=== PATIENT | female | born 1950 | race Caucasian/White ===

== ENCOUNTER → 2022-06-03 12:45 | Outpatient (CLI) | payer MEDICARE, OTHER, SELFPAY ==
--- NOTE | ~2022-06-03 | US_ITS ---
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 COMPARISON: None FINDINGS/IMPRESSION: 8.9 x 8.0 x 4.5 cm subcutaneous mass at the region of concern which is isoechoic and with similar ech otexture and internal septate architecture as the surrounding subcutaneous fat. Appearance would be m ost consistent with and statistically most likely to represent a lipoma. Noncontrast CT or MRI can be obtained for more definitive determination. Reviewed, dictated and finalized at location B.
== END ==
PROVIDERS: PCP Nurse Practitioner Family; Visit Provider Nurse Practitioner Family
DX: D17.1 Benign lipomatous neoplasm of skin and subcutaneous tissue of trunk (principal)
CPT/HCPCS: 76604

== ENCOUNTER 2022-07-04 13:52 | Outpatient (CLI) | payer MEDICARE, SELFPAY ==
[2022-07-04 15:14] LABS: Influenza A QL RT-PCR Negative (Negative); Influenza B QL RT-PCR Negative (Negative); SARS-CoV-2 RNA PCR Negative
== END 2022-07-04 13:53 | disposition home or self-care (01) ==
PROVIDERS: PCP Nurse Practitioner Family; Visit Provider Nurse Practitioner
DX: R68.89 Other general symptoms and signs (principal); Z20.822 Contact with and (suspected) exposure to COVID-19
CPT/HCPCS: 87502; U0003; U0005

== ENCOUNTER → 2022-07-27 08:37 | Outpatient (CLI) | payer MEDICARE, SELFPAY ==
--- NOTE | ~2022-07-27 | XR_ITS ---
XR shoulder LT min 2V 07/27/2022 08:52 Indication: Left shoulder pain Procedure: 4 views left shoulder Comparison: No prior studies for comparison. Findings: There is severe osteoarthritis of the left glenohumeral joint. No acute fracture or traumat ic malalignment. The acromioclavicular joint is within normal limits. No foreign bodies. Impression: 1: Severe left glenohumeral joint osteoarthritis. Reviewed, dictated and finalized at location A. GER BODY Impression: 1: Severe left glenohumeral joint osteoarthritis.
--- NOTE | ~2022-07-27 | XR_ITS ---
EXAMINATION: XR chest 2V 07/27/2022 08:52 INDICATION: Chest pain PROCEDURE: 2 view chest COMPARISON: Comparison to multiple prior studies sequentially, with oldest reviewed study dated 06/25. FINDINGS: The lungs are clear. The cardiomediastinal silhouette is within normal limits. There are no pleural effusions. There is no pneumothorax suspected. There are degenerative changes of the lef t shoulder and spine. IMPRESSION: 1: NO ACUTE CARDIOPULMONARY DISEASE. Reviewed, dictated and finalized at location A. OTIC ASSISTANT
== END ==
PROVIDERS: PCP Nurse Practitioner Family; Visit Provider Nurse Practitioner Family
DX: M25.512 Pain in left shoulder (principal); M19.012 Primary osteoarthritis, left shoulder; R07.89 Other chest pain
CPT/HCPCS: 71046; 73030

== ENCOUNTER 2022-12-17 10:04 | Outpatient (CLI) | payer MEDICARE, SELFPAY ==
[2022-12-17 20:01] LABS: Alanine Aminotransferase 25 U/L (6-35); Albumin Level 4.2 g/dL (3.5-5.1); Alkaline Phosphatase 96 U/L (38-126); Anion Gap 5 mmol/L (8-16); Aspartate Amino Transferase 45 U/L (14-36); Bilirubin,Total 0.9 mg/dL (0.2-1.3); Blood Urea Nitrogen 30 mg/dL (7-17); Calcium 9.3 mg/dL (8.4-10.2); Carbon Dioxide 33 mmol/L (22-30); Chloride 100 mmol/L (98-107); Cholesterol 176 mg/dL (0-200); Estimated Glomerular Filt Rate 49; Glucose 88 mg/dL (65-110); HDL Direct 31 mg/dL; Potassium 4.3 mmol/L (3.4-5.0); Sodium 138 mmol/L (137-145); Triglycerides 146 mg/dL (<150)
[2022-12-17 20:12] LABS: LDL Cholesterol Direct 111 mg/dL
[2022-12-17 20:34] LABS: Basophils Absolute Auto 0.1 K/mm3 (0.0-0.1); Basophils Percent Auto 0.6 % (0.2-1.2); Eosinophils Absolute Auto 0.2 K/mm3 (0-0.3); Eosinophils Percent Auto 2.5 % (0-4.4); Hematocrit 40.8 % (37.0-47.0); Hemoglobin 13.5 g/dL (12.0-15.0); Immature Granulocyte Absolute 0.02 K/mm3 (0.00-0.031); Immature Granulocyte Percent A 0.2 % (0-0.5); Lymphocytes Absolute Auto 1.68 K/mm3 (0.9-3.2); Lymphocytes Percent Auto 19.4 % (18.3-44.2); Mean Corpuscular HGB Conc 33.1 g/dl (32-36); Mean Corpuscular Hemoglobin 30.1 pg (26-34); Mean Corpuscular Volume 91.1 fl (80-100); Mean Platelet Volume 10.2 fl (7.4-10.4); Monocytes Absolute Auto 0.7 K/mm3 (0.1-0.6); Monocytes Percent Auto 8.5 % (2.6-8.5); Neutrophils Percent Auto 68.8 % (45.5-73.1); Platelet Count Result 228 k/mm3 (150-375); Red Blood Count 4.48 M/mm3 (4.2-5.4); Red Cell Distribution Width 12.8 % (11.5-14.5); White Blood Count 8.7 K/mm3 (4.5-10.0)
[2022-12-17 20:58] LABS: Thyroid Stimulating Hormone Reflex 0.071 uIU/mL (0.465-4.68)
[2022-12-17 21:39] LABS: Hemoglobin A1C 5.7 % (<5.7)
[2022-12-18 06:12] LABS: Total Triiodothyronine (T3) 1.05 NG/ML (0.97-1.69)
== END 2022-12-17 10:05 | disposition home or self-care (01) ==
LOC: ANHGOSHLAB 10:16
PROVIDERS: PCP Nurse Practitioner Family; Visit Provider Nurse Practitioner Family
DX: R73.03 Prediabetes (principal); I10 Essential (primary) hypertension; E78.5 Hyperlipidemia, unspecified; E03.9 Hypothyroidism, unspecified
CPT/HCPCS: 36415; 80053; 80061; 83036; 84439; 84443; 84480; 85025

== ENCOUNTER 2023-06-03 10:51 | Outpatient (CLI) | payer MEDICARE, SELFPAY ==
[2023-06-03 18:44] LABS: Alanine Aminotransferase 26 U/L (6-35); Albumin Level 4.3 g/dL (3.5-5.1); Alkaline Phosphatase 94 U/L (38-126); Anion Gap 3 mmol/L (8-16); Aspartate Amino Transferase 32 U/L (14-36); Bilirubin,Total 0.8 mg/dL (0.2-1.3); Blood Urea Nitrogen 26 mg/dL (7-17); Calcium 9.5 mg/dL (8.4-10.2); Carbon Dioxide 36 mmol/L (22-30); Chloride 100 mmol/L (98-107); Cholesterol 200 mg/dL (0-200); Estimated Glomerular Filt Rate > 60; Glucose 99 mg/dL (65-110); HDL Direct 41 mg/dL; Potassium 4.1 mmol/L (3.4-5.0); Sodium 139 mmol/L (137-145); Triglycerides 125 mg/dL (<150)
[2023-06-03 18:54] LABS: LDL Cholesterol Direct 113 mg/dL
[2023-06-03 19:41] LABS: Basophils Absolute Auto 0.1 K/mm3 (0.0-0.1); Basophils Percent Auto 0.5 % (0.2-1.2); Eosinophils Absolute Auto 0.3 K/mm3 (0-0.3); Eosinophils Percent Auto 3.2 % (0-4.4); Hematocrit 40.7 % (37.0-47.0); Hemoglobin 13.5 g/dL (12.0-15.0); Immature Granulocyte Absolute 0.04 K/mm3 (0.00-0.031); Immature Granulocyte Percent A 0.4 % (0-0.5); Lymphocytes Absolute Auto 2.03 K/mm3 (0.9-3.2); Mean Corpuscular HGB Conc 33.2 g/dl (32-36); Mean Corpuscular Hemoglobin 30.5 pg (26-34); Mean Corpuscular Volume 91.9 fl (80-100); Mean Platelet Volume 10.3 fl (7.4-10.4); Monocytes Absolute Auto 0.8 K/mm3 (0.1-0.6); Monocytes Percent Auto 7.5 % (2.6-8.5); Neutrophils Percent Auto 68.4 % (45.5-73.1); Platelet Count Result 238 k/mm3 (150-375); Red Blood Count 4.43 M/mm3 (4.2-5.4); Red Cell Distribution Width 12.2 % (11.5-14.5); White Blood Count 10.2 K/mm3 (4.5-10.0)
[2023-06-03 19:50] LABS: Hemoglobin A1C 5.7 % (<5.7)
[2023-06-06 11:01] LABS: Vitamin D 1,25 (OH)2 Total 24 pg/mL (18-72); Vitamin D2 1,25 (OH)2 <8 pg/mL; Vitamin D3 1,25 (OH)2 24 pg/mL
== END 2023-06-03 10:52 | disposition home or self-care (01) ==
PROVIDERS: PCP Family Medicine; Visit Provider Nurse Practitioner Family
DX: R73.03 Prediabetes (principal); I10 Essential (primary) hypertension; E55.9 Vitamin D deficiency, unspecified
CPT/HCPCS: 36415; 80053; 80061; 82652; 83036; 84443; 85025

== ENCOUNTER 2023-09-05 08:53 | Outpatient (CLI) | payer MEDICARE, SELFPAY ==
[2023-09-05 19:40] LABS: Basophils Absolute Auto 0.1 K/mm3 (0.0-0.1); Basophils Percent Auto 0.7 % (0.2-1.2); Eosinophils Absolute Auto 0.3 K/mm3 (0-0.3); Eosinophils Percent Auto 3.7 % (0-4.4); Hematocrit 41.8 % (37.0-47.0); Hemoglobin 13.7 g/dL (12.0-15.0); Immature Granulocyte Absolute 0.02 K/mm3 (0.00-0.031); Immature Granulocyte Percent A 0.2 % (0-0.5); Lymphocytes Percent Auto 20.9 % (18.3-44.2); Mean Corpuscular HGB Conc 32.8 g/dl (32-36); Mean Corpuscular Hemoglobin 30.2 pg (26-34); Mean Corpuscular Volume 92.1 fl (80-100); Mean Platelet Volume 10.5 fl (7.4-10.4); Monocytes Absolute Auto 0.7 K/mm3 (0.1-0.6); Monocytes Percent Auto 8.2 % (2.6-8.5); Neutrophils Absolute Auto 5.7 K/mm3 (1.3-6.7); Neutrophils Percent Auto 66.3 % (45.5-73.1); Platelet Count Result 249 k/mm3 (150-375); Red Blood Count 4.54 M/mm3 (4.2-5.4); Red Cell Distribution Width 11.9 % (11.5-14.5); White Blood Count 8.6 K/mm3 (4.5-10.0)
[2023-09-05 19:48] LABS: Alanine Aminotransferase 22 U/L (6-35); Albumin Level 3.9 g/dL (3.5-5.1); Alkaline Phosphatase 92 U/L (38-126); Anion Gap 9 mmol/L (8-16); Aspartate Amino Transferase 37 U/L (14-36); Bilirubin,Total 0.4 mg/dL (0.2-1.3); Blood Urea Nitrogen 40 mg/dL (7-17); Calcium 9.1 mg/dL (8.4-10.2); Carbon Dioxide 30 mmol/L (22-30); Chloride 102 mmol/L (98-107); Estimated Glomerular Filt Rate 49; Glucose 85 mg/dL (65-110); Potassium 3.9 mmol/L (3.4-5.0); Sodium 141 mmol/L (137-145)
[2023-09-05 20:09] LABS: Creatinine Urine 135.5 mg/dL
[2023-09-05 20:13] LABS: MALB Creatinine Ratio 17.5 mg/g (0-30); Microalbumin Urine Random 23.7 mg/L (0-16.7)
== END 2023-09-05 08:54 | disposition home or self-care (01) ==
PROVIDERS: PCP Family Medicine; Visit Provider Nurse Practitioner Family
DX: E11.9 Type 2 diabetes mellitus without complications (principal); I10 Essential (primary) hypertension
CPT/HCPCS: 36415; 80053; 82043; 85025

== ENCOUNTER 2024-01-15 10:38 | Outpatient (CLI) | payer MEDICARE, SELFPAY ==
[2024-01-15 16:35] LABS: Anion Gap 8 mmol/L (4-12); Blood Urea Nitrogen 22 mg/dL (7-17); Calcium 9.1 mg/dL (8.4-10.2); Carbon Dioxide 29 mmol/L (22-30); Chloride 105 mmol/L (98-107); Estimated Glomerular Filt Rate > 60; Glucose 91 mg/dL (65-110); Sodium 142 mmol/L (137-145)
== END 2024-01-15 10:39 | disposition home or self-care (01) ==
LOC: ANHGOSHLAB 10:41
PROVIDERS: PCP Family Medicine; Visit Provider Internal Medicine Cardiovascular Disease
DX: I10 Essential (primary) hypertension (principal)
CPT/HCPCS: 36415; 80048

== ENCOUNTER 2024-03-03 08:32 | Outpatient (CLI) | payer MEDICARE, SELFPAY ==
--- NOTE | ~2024-03-03 | US_ITS ---
BILATERAL LOWER EXTREMITY VENOUS ULTRASOUND Ordering provider: Laura Romo APRN History: . R60.9 - Edema, unspecified . Comparison: None. FINDINGS: RIGHT LOWER EXTREMITY VEINS: --COMMON FEMORAL: Patent and free of thrombus. Normal compressibility, phasic flow and augmentation. --PROXIMAL SUPERFICIAL FEMORAL: Patent and free of thrombus. Normal compressibility, phasic flow and augmentation. --DISTAL SUPERFICIAL FEMORAL: Patent and free of thrombus. Normal compressibility, phasic flow and au gmentation. --POPLITEAL: Patent and free of thrombus. Normal compressibility, phasic flow and augmentation. --POSTERIOR TIBIAL: Patent and free of thrombus. Normal compressibility, phasic flow and augmentation . LEFT LOWER EXTREMITY VEINS: --COMMON FEMORAL: Patent and free of thrombus. Normal compressibility, phasic flow and augmentation. --PROXIMAL SUPERFICIAL FEMORAL: Patent and free of thrombus. Normal compressibility, phasic flow and augmentation. --DISTAL SUPERFICIAL FEMORAL: Patent and free of thrombus. Normal compressibility, phasic flow and au gmentation. --POPLITEAL: Patent and free of thrombus. Normal compressibility, phasic flow and augmentation. --POSTERIOR TIBIAL: Patent and free of thrombus. Normal compressibility, phasic flow and augmentation . IMPRESSION: Negative bilateral lower extremity venous US. No deep vein thrombosis. Reviewed, dictated and finalized at location A.
== END 2024-03-03 08:33 | disposition home or self-care (01) ==
PROVIDERS: PCP Nurse Practitioner Family; Visit Provider Nurse Practitioner Family
DX: I73.9 Peripheral vascular disease, unspecified (principal); R60.9 Edema, unspecified
CPT/HCPCS: 93970

== ENCOUNTER 2024-03-10 08:03 | Outpatient (CLI) | payer MEDICARE, SELFPAY ==
[2024-03-10 13:06] LABS: Basophils Percent Auto 0.4 % (0.2-1.2); Eosinophils Absolute Auto 0.3 K/mm3 (0-0.3); Eosinophils Percent Auto 2.5 % (0-4.4); Hematocrit 39.6 % (37.0-47.0); Hemoglobin 12.8 g/dL (12.0-15.0); Immature Granulocyte Absolute 0.05 K/mm3 (0.00-0.031); Immature Granulocyte Percent A 0.5 % (0-0.5); Lymphocytes Absolute Auto 1.51 K/mm3 (0.9-3.2); Mean Corpuscular HGB Conc 32.3 g/dl (32-36); Mean Corpuscular Volume 92.7 fl (80-100); Mean Platelet Volume 10.4 fl (7.4-10.4); Monocytes Absolute Auto 0.9 K/mm3 (0.1-0.6); Monocytes Percent Auto 8.6 % (2.6-8.5); Platelet Count Result 236 k/mm3 (150-375); Red Blood Count 4.27 M/mm3 (4.2-5.4); Red Cell Distribution Width 12.4 % (11.5-14.5); White Blood Count 10.8 K/mm3 (4.5-10.0)
[2024-03-10 13:42] LABS: Uric Acid 6.4 mg/dL (2.5-7.5)
[2024-03-10 13:43] LABS: NT Pro B Type Natriuretic Pept 245 pg/mL (19.9-100)
== END 2024-03-10 08:04 | disposition home or self-care (01) ==
PROVIDERS: PCP Nurse Practitioner Family; Visit Provider Nurse Practitioner Family
DX: M10.9 Gout, unspecified (principal); R60.9 Edema, unspecified; I11.0 Hypertensive heart disease with heart failure; I50.9 Heart failure, unspecified; R06.00 Dyspnea, unspecified; R73.03 Prediabetes; I73.9 Peripheral vascular disease, unspecified
CPT/HCPCS: 36415; 83880; 84550; 85025

== ENCOUNTER 2024-06-16 10:04 | Outpatient (CLI) | payer MEDICARE, SELFPAY ==
[2024-06-16 13:06] LABS: Basophils Percent Auto 0.4 % (0.2-1.2); Eosinophils Absolute Auto 0.3 K/mm3 (0-0.3); Eosinophils Percent Auto 3.5 % (0-4.4); Hematocrit 42.5 % (37.0-47.0); Hemoglobin 13.6 g/dL (12.0-15.0); Immature Granulocyte Absolute 0.05 K/mm3 (0.00-0.031); Immature Granulocyte Percent A 0.5 % (0-0.5); Lymphocytes Absolute Auto 1.62 K/mm3 (0.9-3.2); Lymphocytes Percent Auto 17.8 % (18.3-44.2); Mean Corpuscular Hemoglobin 30.3 pg (26-34); Mean Corpuscular Volume 94.7 fl (80-100); Mean Platelet Volume 10.4 fl (7.4-10.4); Monocytes Absolute Auto 0.7 K/mm3 (0.1-0.6); Monocytes Percent Auto 7.5 % (2.6-8.5); Neutrophils Absolute Auto 6.4 K/mm3 (1.3-6.7); Neutrophils Percent Auto 70.3 % (45.5-73.1); Platelet Count Result 253 k/mm3 (150-375); Red Blood Count 4.49 M/mm3 (4.2-5.4); Red Cell Distribution Width 13.2 % (11.5-14.5); White Blood Count 9.1 K/mm3 (4.5-10.0)
[2024-06-16 13:22] LABS: Alanine Aminotransferase 20 U/L (6-35); Albumin Level 4.3 g/dL (3.5-5.1); Alkaline Phosphatase 88 U/L (38-126); Anion Gap 8 mmol/L (4-12); Aspartate Amino Transferase 36 U/L (14-36); Bilirubin,Total 0.6 mg/dL (0.2-1.3); Blood Urea Nitrogen 21 mg/dL (7-17); Calcium 9.1 mg/dL (8.4-10.2); Carbon Dioxide 30 mmol/L (22-30); Chloride 103 mmol/L (98-107); Cholesterol 223 mg/dL (0-200); Estimated Glomerular Filt Rate > 60; Glucose 96 mg/dL (65-110); HDL Direct 46 mg/dL; Sodium 141 mmol/L (137-145); Triglycerides 135 mg/dL (<150)
[2024-06-16 13:32] LABS: LDL Cholesterol Direct 130 mg/dL
[2024-06-16 13:50] LABS: Free T4 Free Thyroxine 1.53 ng/mL (0.78-2.19); Vitamin D 25 Hydroxy 28.4 ng/mL
[2024-06-16 14:30] LABS: Hemoglobin A1C 5.6 % (<5.7)
[2024-06-16 15:53] LABS: Potassium 4.2 mmol/L (3.4-5.0)
== END 2024-06-16 10:05 | disposition home or self-care (01) ==
LOC: ANHGOSHLAB 10:06
PROVIDERS: PCP Nurse Practitioner Family; Visit Provider Nurse Practitioner Family
DX: E03.9 Hypothyroidism, unspecified (principal); I10 Essential (primary) hypertension; E78.5 Hyperlipidemia, unspecified; R73.03 Prediabetes; E55.9 Vitamin D deficiency, unspecified
CPT/HCPCS: 36415; 80053; 80061; 82306; 83036; 84439; 84443; 85025

== ENCOUNTER 2025-02-23 13:46 | Outpatient (CLI) | payer MEDICARE, SELFPAY ==
--- OUTSIDE RECORDS SUMMARY | 2025-02-23 13:49 | XMS_ITS | Clinical Summary ---
Author Organization [facility] Address [address] [place] [address] Care Team Providers Care Laborer Plumbing Name Role Phone Unavailable Primary Care Provider Unavailabl e Social History Tobacco Use Types Packs/Day Years Used Date Smoking Tobacco: Never Assessed Comments Unknown Sex and Gender Information Value Date Recorded Sex Assigned at Not on file Legal Sex Female 5:44 PM CDT Gender Identity Not on file Sexual Orientation Not on file Last Filed Vital Signs Vital Sign Reading Time Taken Comments Blood Pressure 159/84 09/12/2008 8:35 AM BLUNGER Pulse 96 09/12/2008 8:35 AM BLUNGER Temperature - - Respiratory Rate - - Oxygen Saturation - - Inhaled Oxygen Concentration - - Weight 118.4 kg (261 lb) 09/12/2008 8:35 AM BLUNGER Height 165.1 cm (5' 5) 09/12/2008 8:35 AM BLUNGER Body Mass Index 43.43 09/12/2008 8:35 AM BLUNGER Plan of Treatment Health Maintenance Due Date Last Done Comments Colorectal Cancer Screening Colonoscopy (10 Years) 1949 Hepatitis C 1967 DTaP, Tdap and Td Vaccines ( 1 - Tdap) 1968 Pneumococcal Vaccine: 50+ Ye ars (1 of 1 - PCV) 1999 Zoster Vaccines (1 of 2) 1999 Dexa Scan (General) 2014 COVID-19 Vaccine ( - 2023-2 5 season) 2024 RSV Immunization or 60+ Years (1 - 1-dose 75+ series) 2024 Meningococcal B Vaccine Aged Out No l onger eligible based on patient's age to complete this topic Meningococcal Vaccine Aged Out No tomas kena eligible based on patient's age to complete this topic RSV Immunizations Under 20 Months Aged Out No longer eligible based on patient's age to complete this topic
--- OUTSIDE RECORDS SUMMARY | 2025-02-23 13:49 | XMS_ITS | Referral Summary ---
Author Organization [facility] [place] [address] Address [address] [place] [address] Care Team Providers Care Insight Director Name Role Phone Deyanira Olivarez MD Unavailable [phone] Jaida Perdomo NP Primary Care Provider [phone] Encounters Date Type Department Care Team Description 01/04/2025 10:15 AM CDT Office Visit [facility] Orthopedic and Sports Medicine [address] [place] [id number] Ana Mcmanus PA Other specified aftercare following surgery (Primary Dx); S/P reverse total shoulder arthroplasty, left from Last 3 Months Allergies Active Allergy Reactions Criticality Noted Date Comments Sulfa Hives Medium 08/12/2023 Medications metoprolol (LOPRESSOR) 25 mg tablet Take 1 tablet (25 mg total) by mouth 2 (two) times a day 09/13/2018 Active cetirizine (ZyrTEC) 10 mg tablet Take 1 tablet (10 mg total) by mouth daily Active doxepin (SINEquan) 25 mg capsule TAKE 1 CAPSULE BY MOUTH ONCE DAILY NEEDED FOR SLEEP 30 MINUTES PRIOR TO BEDTIME. 05/29/2024 Active citalopram (CeleXA) 20 mg tablet Take 1 tablet (20 mg total) by mouth nightly Active meloxicam (MOBIC) 7.5 mg tablet Take 1 tablet (7.5 mg total) by mouth every morning Active levothyroxine (SYNTHROID) 150 mcg tablet Take 1 tablet (150 mcg total) by mouth nightly Active pravastatin (PRAVACHOL) 40 mg tablet Take 1 tablet (40 mg total) by mouth nightly Active ergocalciferol (VITAMIN D) 50,000 unit capsule Take 1 capsule (50,000 Units total) by mouth once a week Takes on Friday Active Active Problems Problem Noted Date Diagnosed Date S/P reverse total shoulder arthroplasty, left Rotator cuff arthropathy, left 09/09/2024 Bilateral lower extremity edema 12/30/2023 Hypothyroidism 12/30/2023 Hypersomnolence 12/30/2023 JIM (dyspnea on exertion) 12/30/2023 Chronic left shoulder pain 08/12/2023 Localized primary osteoarthritis of left shoulde r region 08/12/2023 Abnormal EKG 09/29/2018 RBBB 09/29/2018 Precordial pain 09/29/2018 Essential hypertension 09/29/2018 Mixed hyperlipidemia 09/29/2018 Elevated hemoglobin A1c 09/29/2018 Morbid obesity with BMI of 50.0-59.9, adult 12/2018 Preoperative cardiovascular examination 09/29/19 Social History Tobacco Use Types Packs/Day Years Used Date Smoking Tobacco: Former Smokeless Tobacco: Never Tobacco Cessation:Counseling Given: Not Answered Comments:1992 Alcohol Use Standard Drinks/Week Comments No 0 (1 standard drink = 0.6 oz pur e alcohol) social drinker AUDIT-C Answer Date Recorded Q1: How often do you have a drink containing alc ohol? Monthly or less 09/28/2024 Q2: How many drinks containi ng alcohol do you have on a typical day when you are drinking? 1 or 2 09/28/2024 Q3: How often do you have si x or more drinks on one occasion? Never 09/28/2024 Personal Safety Answer Date Recorded Have you ever been in or are you currently in a harmful physical or emotional relationship or is someone making you feel afraid or unsafe? 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 Gender Identity Not on file Sexual Orientation Not on file Last Filed Vital Signs Vital Sign Reading Time Taken Comments Blood Pressure 167/80 01/04/2025 10:20 AM CDT Pulse 77 01/04/2025 10:20 AM CDT Temperature 36.6 C (97.8 F) 09/29/2024 8:35 AM WARES SORTER Respiratory Rate 16 11/23/2024 9:58 AM CDT Oxygen Saturation 90% 09/29/2024 8:35 AM WARES SORTER Inhaled Oxygen Concentration - - Weight 132.9 kg (293 lb) 01/04/2025 10:20 AM CDT Height 157.5 cm (5' 2) 01/04/2025 10:20 AM CDT Body Mass Index 53.59 01/04/2025 10:20 AM CDT Plan of Treatment Not on file Medical Devices Implanted Type Area Ornamental Metal Erector Apprentice Device Identifier Shelf Expiration Date Model / Serial / Lot Exactech Reverse Torque Define Shoulder Kit Screw 320-20-00 - [id number] - [id number] Implanted:Qty: 1 on 09/28/2024 by Emir Sebastian MD at [facility] Left: Shoulder Exactech [id number] 07/28/2029 320-20-00 / [id number] / Exactech Equinoxe Lock Reverse Shoulder Glenosphere Screw Bone 320-15-05 - [id number] - [id number] Implanted:Qty: 1 on 09/28/2024 by Emir Sebastian MD at [facility] Left: Shoulder Exactech [id number] 06/22/2029 320-15-05 / [id number] / Exactech Equinoxe Small Reverse Superior Posterior Augment Shoulder Left 320-35-07 - [id number] - [id number] Implanted:Qty: 1 on 09/28/2024 by Emir Sebastian MD at [facility] Left: Shoulder Exactech [id number] 12/21/2033 320-35-07 / [id number] / Exactech Component 36mm Glenoid Glenosphere Reverse Shoulder 320-31-36 - [id number] - [id number] Implanted:Qty: 1 on 09/28/2024 by Emir Sebastian MD at [facility] Left: Shoulder Exactech [id number] 07/29/2034 320-31-36 / [id number] / Exactech Equinoxe 4.5mm 30mm Kit Compression Lock Cap Reverse Shoulder 320-20-30 - [id number] - [id number] Implanted:Qty: 1 on 09/28/2024 by Emir Sebastian MD at [facility] Left: Shoulder Exactech [id number] 06/09/2029 320-20-30 / [id number] / Exactech Equinoxe 4.5mm 30mm Kit Compression Lock Cap Reverse Shoulder 320-20-30 - [id number] - [id number] Implanted:Qty: 1 on 09/28/2024 by Emir Sebastian MD at [facility] Left: Shoulder Exactech [id number] 01/22/2027 320-20-30 / [id number] / Exactech Equinoxe Od10 Mm L70 Mm Preserve Short Stem Humeral Sterile 300-30-10 - [id number] - [id number] Implanted:Qty: 1 on 09/28/2024 by Emir Sebastian MD at [facility] Left: Shoulder Exactech [id number] 03/18/2034 300-30-10 / [id number] / Exactech Tray Humeral Adapter 0 322-10-00 - [id number] - [id number] Implanted:Qty: 1 on 09/28/2024 by Emir Sebastian MD at [facility] Left: Shoulder Exactech 08/03/2034 322-10-00 / [id number] / Exactech Liner Humeral 36mm Equinoxe Reverse Shoulder Poly 322-36-00 - [id number] - [id number] Implanted:Qty: 1 on 09/28/2024 by Emir Sebastian MD at [facility] Left: Shoulder Exactech 06/23/2029 322-36-00 / [id number] / Insurance MEDICARE A[employer] SENIOR SUPPLEMENT MEDICARE AET[employer] SENIOR SUPPLEMENT Advance Directives For more information, please contact: [phone] * Full Code (Latest Code Status on File) Date Activated Date Inactivated Comments 09/28/2024 2:29 PM 09/29/2024 8:55 PM Care Teams Insight Director Relationship Specialty Start Date End Date Jaida Perdomo NP [address] [place] [address] PCP - General Family Medicine 07/21/24 JaydaDeyanira gomez MD Consulting Physician Cardiology 07/24/23
--- OUTSIDE RECORDS SUMMARY | 2025-02-23 13:49 | XMS_ITS | Encounter Summary ---
Author Organization [facility] Address [address] [place] [address] Care Team Providers Care Network Administrator Name Role Phone Unavailable Primary Care Provider Unavailabl e Encounter Details Date Type Department Care Team (Late st Contact Info) Description 05/04/2003 Abstract [facility] Conversion Md, Generic Conversion, Social History Tobacco Use Types Packs/Day Years Used Date Smoking Tobacco: Never Assessed Comments Unknown Sex and Gender Information Value Date Recorded Sex Assigned at Not on file Legal Sex Female 5:44 PM CDT Gender Identity Not on file Sexual Orientation Not on file documented as of this encounter Plan of Treatment Not on file documented as of this encounter Visit Diagnoses Not on filedocumented in this encounter
--- OUTSIDE RECORDS SUMMARY | 2025-02-23 13:49 | XMS_ITS | Clinical Summary ---
Author Organization [facility] [address] Address [address] [place] [address] Care Team Providers Care Community Development Planner Name Role Phone Deyanira Olivarez MD Unavailable [phone] Jaida Perdomo NP Primary Care Provider [phone] Allergies Active Allergy Reactions Criticality Noted Date [...] 50.0-59.9, adult 12/2018 Preoperative cardiovascular examination 09/29/19 Encounters Date Type Department Care Team Description 01/04/2025 10:15 AM CDT Office Visit [facility] Orthopedic and Sports Medicine [address] [place] [phone] Ana Mcmanus PA Other specified aftercare following surgery (Primary Dx); S/P reverse total shoulder arthroplasty, left from Last 3 Months Surgical History Surgery Date Site/Laterality Comments DILATION AND CURETTAGE OF UTERUS Medical History Medical History Date Comments Anxiety Postmenopausal bleeding Hypertension HLD (hyperlipidemia) Obesity Thyroid disease JIM (dyspnea on exertion) Family History Medical History Relation Name Comments Kidney disease Brother 1 Heart attack Brother 2 Cerebral aneurysm Father Heart failure Mother PAD, status post amputation Mother Coronary artery disease Sister Coronary stents Sister Relation Name Status Comments Brother 1 (Age 55) Kidney dis ease Brother 2 (Age 45) PR/sudden cardiac Father (Age 5 0) Mother Sister Social History Tobacco Use Types Packs/Day Years Used Date Smoking Tobacco: Former Smokeless Tobacco: Never Tobacco Cessation:Counseling Given: Not Answered Comments:1991 Alcohol Use Standard Drinks/Week Comments No 0 [...] on file Legal Sex Female 1:52 PM 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 Gender Identity Not on file Sexual Orientation Not on file Obstetrics History Last Filed Vital Signs Vital Sign Reading Time Taken Comments Blood Pressure 167/80 01/04/2025 10:20 AM CDT Pulse 77 01/04/2025 10:20 AM CDT Temperature 36.6 C (97.8 F) 09/29/2024 8:35 AM 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 Respiratory Rate 16 11/23/2024 9:58 AM CDT Oxygen Saturation 90% 09/29/2024 8:35 AM 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 Inhaled Oxygen Concentration - - Weight 132.9 kg (293 lb) 01/04/2025 10:20 AM CDT Height 157.5 cm (5' 2) 01/04/2025 10:20 AM CDT Body Mass Index 53.59 01/04/2025 10:20 AM CDT Plan of Treatment Health Maintenance Due Date Last Done Comments Colon Cancer Screening-Colonoscopy 1949 Depression Screening 1950 Hepatitis C Screening 1950 Osteoporosis Screening-Bone Density Scan 1949 DTaP/Tdap/Td Vaccine (1 - Tdap) 1960 Hepatitis B Screening 1967 Zoster Vaccine (1 of 2) 1999 Well Visit 65+ 2014 Pneumococcal vaccine 65+ (2 of 2 - PCV) 06/07/2020 06/07/2019 Covid-19 Vaccine (4 - 2023-2 5 season) 2024 09/24/2021, 03/23/2021, 02/23/2021 Influenza Vaccine (#1) 2025 , 06/14/2021, 06/19/2020, Additional history exists Fall Risk Assessment 09/29/2025 09/29/2024 Breast Cancer Screening-Mammogram Discontinued 07/05/2016, 06/28/2016, 02/03/2015 Medical Devices Implanted Type Area Production Broacher Device Identifier Shelf Expiration Date Model / Serial / Lot Exactech Reverse Torque Define Shoulder Kit Screw 320-20- - [id number] - [id number] Implanted:Qty: 1 on 09/28/2024 by Emir Sebastian MD at [facility] Left: Shoulder Exactech [id number] 07/28/2029 320-20-00 / [id number] / Exactech Equinoxe Lock Reverse Shoulder Glenosphere Screw Bone 320-15 - [id number] - [id number] Implanted:Qty: 1 on 09/28/2024 by Emir Sebastian MD at [facility] Left: Shoulder Exactech [id number] 06/22/2029 320-15- / [id number] / Exactech Equinoxe Small Reverse Superior Posterior Augment Shoulder Left 320-35-07 - [id number] - [id number] Implanted:Qty: 1 on 09/28/2024 by Emir Sebastian MD at [facility] Left: Shoulder Exactech [id number] 12/21/2033 320-35-07 / [id number] / Exactech Component 36mm Glenoid Glenosphere Reverse Shoulder 320-31-36 - [id number] - [id number] Implanted:Qty: 1 on 09/28/2024 by Emir Sebastian MD at [facility] Left: Shoulder Exactech [id number] 07/29/2034 320-31-36 / [id number] / Exactech Equinoxe 4.5mm 30mm Kit Compression Lock Cap Reverse Shoulder 320-20-30 - [id number] - [id number] Implanted:Qty: 1 on 09/28/2024 by Emir Sebastian MD at [facility] Left: Shoulder Exactech [id number] 06/09/2029 320-20-30 / [id number] / Exactech Equinoxe 4.5mm 30mm Kit Compression Lock Cap Reverse Shoulder 320-20-30 - [id number] - [id number] Implanted:Qty: 1 on 09/28/2024 by Emir Sebastian MD at [facility] Left: Shoulder Exactech [id number] 01/22/2027 320-20-30 / [id number] / Exactech Equinoxe Od10 Mm L70 Mm Preserve Short Stem Humeral Sterile 300-30- - [id number] - [id number] Implanted:Qty: 1 on 09/28/2024 by Emir Sebastian MD at [facility] Left: Shoulder Exactech [id number] 03/18/2034 300-3010 / [id number] / Exactech Tray Humeral Adapter 0 322 - [id number] - [id number] Implanted:Qty: 1 on 09/28/2024 by Emir Sebastian MD at [facility] Left: Shoulder Exactech 08/03/2034 [address] / [id number] / Exactech Liner Humeral 36mm Equinoxe Reverse Shoulder Poly 36 - [id number] - [id number] Implanted:Qty: 1 on 09/28/2024 by Emir Sebastian MD at [facility] Left: Shoulder Exactech 06/23/2029 322-36-00 / [id number] / Insurance MEDICARE AET SENIOR SUPPLEMENT MEDICARE AETNA SENIOR SUPPLEMENT Advance Directives For more information, please contact: [phone] * Full Code (Latest Code Status on File) Date Activated Date Inactivated Comments 09/28/2024 2:29 PM 09/29/2024 8:55 PM Care Teams Community Development Planner Relationship Specialty Start Date End Date Jaida Perdomo NP [address] [place] [address] PCP - General Family Medicine 07/21/24 Deyanira Olivarez MD Consulting Physician Cardiology 07/24/23
--- OUTSIDE RECORDS SUMMARY | 2025-02-23 13:49 | XMS_ITS | Encounter Summary ---
Author Organization [facility] Address [address] [place] [address] Care Team Providers Care Utility Sales Representative Name Role Phone Unavailable Primary Care Provider Unavailabl e Encounter Details Date Type Department Care Team (Late st Contact Info) Description 08/27/2005 Abstract [facility] Conversion Md, Generic Conversion, Social [...]
[2025-02-23 18:46] LABS: Hematocrit 43.4 % (37.0-47.0); Hemoglobin 14.0 g/dL (12.0-15.0); Immature Granulocyte Percent A 0.4 % (0-0.5); Lymphocytes Absolute Auto 2.25 K/mm3 (0.9-3.2); Mean Corpuscular HGB Conc 32.3 g/dl (32-36); Mean Corpuscular Hemoglobin 29.3 pg (26-34); Mean Corpuscular Volume 90.8 fl (80-100); Nucleated Red Blood Cells Absolute Auto 0.000 K/mm3 (0.0-0.012); Nucleated Red Blood Cells Perc 0.0 % (0.0-0.2); Platelet Count Result 218 k/mm3 (150-375); Red Blood Count 4.78 M/mm3 (4.2-5.4); White Blood Count 10.0 K/mm3 (4.5-10.0)
[2025-02-23 18:59] LABS: Hemoglobin A1C. 5.9 % (<5.7)
[2025-02-23 19:00] LABS: Alanine Aminotransferase 24 U/L (6-35); Albumin Level 4.4 g/dL (3.5-5.1); Alkaline Phosphatase 92 U/L (38-126); Anion Gap 9 mmol/L (4-12); Aspartate Amino Transferase 46 U/L (14-36); Bilirubin,Total 0.4 mg/dL (0.2-1.3); Blood Urea Nitrogen 26 mg/dL (7-17); Calcium 9.6 mg/dL (8.4-10.2); Carbon Dioxide 31 mmol/L (22-30); Chloride 101 mmol/L (98-107); Cholesterol 198 mg/dL (0-200); Estimated Glomerular Filt Rate 53; Glucose 89 mg/dL (65-110); HDL Direct 38 mg/dL; Potassium 4.4 mmol/L (3.4-5.0); Sodium 141 mmol/L (137-145); Total Protein 7.8 g/dL (6.3-8.2); Triglycerides 172 mg/dL (<150)
[2025-02-24 08:54] LABS: Thyroid Stimulating Hormone Reflex 4.790 uIU/mL (0.465-4.68)
[2025-02-24 09:24] LABS: Free T4 Free Thyroxine Reflex 1.40 ng/dL (0.78-2.19)
[2025-02-24 10:05] LABS: Total Triiodothyronine (T3) 0.87 NG/ML (0.82-1.58)
== END 2025-02-23 13:47 | disposition home or self-care (01) ==
LOC: ANHGOSHLAB 13:46
PROVIDERS: PCP Nurse Practitioner Family; Visit Provider Nurse Practitioner Family
DX: E55.9 Vitamin D deficiency, unspecified (principal); E78.5 Hyperlipidemia, unspecified; R73.03 Prediabetes; I10 Essential (primary) hypertension; E03.9 Hypothyroidism, unspecified
CPT/HCPCS: 36415; 80053; 80061; 82306; 83036; 84439; 84443; 84480; 85025

== ENCOUNTER 2025-03-15 09:23 | Outpatient (CLI) | payer MEDICARE, SELFPAY ==
--- NOTE | ~2025-03-15 | DEXA_ITS ---
Bone Density Report Name: CHERIE LAW Age: 74 Sex: Female Ethnicity: White Date of : 1950 Indication: postmenopausal; screening for osteoporosis; parental hip fracture; Referring Provider: NEDA CASAS Study: Bone densitometry was performed. Exam Date: March 15, 2025 Accession number: [id number] Bone Density: Region BMD T-score Z-score Classification AP Spine(L1-L4) 1.434 3.5 6.0 Normal Femoral Neck (Left) 0.656 -1.7 0.4 Osteopenia Total Hip (Left) 0.912 -0.2 1.6 Normal Femoral Neck (Right) 0.691 -1.4 0.7 Osteopenia Total Hip (Right) 0.953 0.1 1.9 Normal Total Hip Mean 0.933 -0.1 1.8 Normal World Health Organization criteria for BMD impression classify patients as: Normal (T-score at or above -1.0), Osteopenia (T-score between -1.0 and -2.5), or Osteoporosis (T-score at or below -2.5). 10-year Fracture Risk(1): Major Osteoporotic Fracture 17% Hip Fracture 8.4% Reported Risk Factors: [place] (), Neck BMD=0.656, BMI=50.4, parental fracture Input outside FRAX(R) limits. Adjusted to:Lxsixb=393 kg (1) FRAX(R) Version 3.08. Fracture probability calculated for an untreated patient. Fracture probability may be lower if the patient has received treatment. Previous Exams: -- Region Exam Age BMD T-score BMD Change BMD Change Date g/cm2 vs Baseline vs Previous -- AP Spine (L1-L4) 03/15/2025 74 1.434 3.5 11.2%# 11.2%# 06/28/2016 66 1.289 2.2 Total Hip(Left) 03/15/2025 74 0.912 -0.2 -10.3%# -10.3%# 06/28/2016 66 1.017 0.6 Total Hip(Right) 03/15/2025 74 0.953 0.1 -11.4%# -11.4%# 06/28/2016 66 1.076 1.1 -- *Denotes significance at 95% confidence level, LSC for AP Spine = 0.022 g/cm2, LSC for Total Hip = 0.027 g/cm2 # Denotes dissimilar scan types or analysis methods Clinical Information Provided by Patient: Parent has had a hip fracture Has used the following medications: Vitamin D Patient maximum height was 62 Menopause Age: 51 No regular weight bearing exercise Does not regularly consume dairy products Onset of menses at age 12 Number of children 2 Impression: The patient has low bone mass, based on the Left Femoral Neck T-score. The patient has an estimated ten-year risk of hip fracture of 8.4% and an estimated ten-year risk of major fracture of 17%, based on the WHO FRAX algorithm. The patient has risk factors, including: parental hip fracture. Unable to evaluate interval change due to the use of different scan modes. Discussion: BONE DENSITY IS LOW AT ONE OR MORE SKELETAL SITES. THE PATIENT'S BMD AND CLINICAL RISK FACTORS CONTRIBUTE TO THIS PATIENT'S INCREASED RISK OF FRACTURE. This patient's lowest T-score is low at one or more skeletal sites. It meets the World Health Organization's (WHO) criteria for ?low bone mass? (T-score between -1.0 and -2.5). The patient's 10-year risk of hip fracture as calculated by FRAX exceeds the threshold where pharmacological therapy is recommended by the National Osteoporosis Foundation (NOF). However, all treatment decisions require clinical judgment and consideration of individual patient factors, including patient preferences, comorbidities, previous drug use, risk factors not captured in the FRAX model (e.g., frailty, falls, vitamin D deficiency, increased bone turnover, interval significant decline in bone density) and possible under or overestimation of fracture risk by FRAX. The patient should follow a healthful lifestyle (good nutrition with adequate calcium and vitamin D, and appropriate weight-bearing exercise). Follow-Up: Consider a repeat BMD and Vertebral Fracture Assessment (VFA) exam in 2 years or sooner if medically necessary, to reassess this patient's status. Reported by: KATHARINE on 03/15/2025 9:47:00 AM. Reviewed, dictated and finalized at location A.
== END 2025-03-15 09:24 | disposition home or self-care (01) ==
LOC: MICIMG 09:24
PROVIDERS: PCP Nurse Practitioner Family; Visit Provider Nurse Practitioner Family
DX: M85.852 Other specified disorders of bone density and structure, left thigh (principal); M85.851 Other specified disorders of bone density and structure, right thigh; Z78.0 Asymptomatic menopausal state
CPT/HCPCS: 77080

== ENCOUNTER 2025-04-13 11:00 | Outpatient (RCR) | payer MEDICARE, SELFPAY ==
--- NOTE | 2025-02-04 09:48 | OPREHPOC ---
Outpatient Therapy Plan of Care This is a Multidisciplinary Plan of Care that may contain components documented by all disciplines (PT, OT, and ST.) PT Problem 1 PT Problem #1 Knowledge Deficit PT Goal 1 Goal / Goal Update 1. Patient will perform independent HEP 2. Patient will verbalize urge suppression strategies Target Visit 2 PT Problem 2 PT Problem #2 Impaired Strength PT Goal 1 Goal / Goal Update 1. Pelvic floor strength 4/5 to reduce incontinence 2. Pelvic floor endurance to 10 seconds to reduce incontinence Target Visit 3 PT Problem 3 PT Problem #3 Impaired Functional ADLs PT Goal 1 Goal / Goal Update 1. Patient will report urinary incontinence no more than 1 time per week 2. Patient will only need to use 1 pad per day at most 3. Patient will be able to hold urge at least 30 minutes to allow for functional activities at home Target Visit 3
--- NOTE | 2025-02-04 09:48 | PTOPEVAL1 ---
Assessment and note entered by Kalani Hamilton DPT Evaluation Information Assessment Status Evaluation Diagnosis n81.10, r35.0 ICD-10 Condition Codes (PT) Weakness R53.1,Mixed incontinence N39.46 Subjective Information Pt reports frequency of urination, less than 10 times a day and at least 2-3 times at night. Urge incontinence multiple times a day and occurs with standing up. Sometimes incontinence with coughing or sneezing. Wears a pad 24/, about 4 per day. Can hold urge to void 0 minutes. Denies pain with urination. Issues having been worsening for months now but not years. BM up to 2 times a day, denies pain. Denies history of pelvic pain. Pt has been 3 times, 2 vaginal deliveries. No other DIRECTOR PUBLIC SERVICE history or b/b history. Patient goal: stop peeing every time I stand up Return to MD not scheduled. Reported Pain Level Pain Score 0: Self Report Assessment PT Clinical Summary The patient is presenting to skilled therapy with a diagnosis of cystocele and reports of increased urinary frequency and mixed urinary incontinence that has been worsening for months. She demonstrates decreased pelvic floor strength and endurance as well as decreased hip and abdominal strength which are contributing to her symptoms. She will benefit from therapy to improve strength and reduce incontinence and urinary frequency, as well as to work on urge suppression strategies, in order to return to prior level of function. Plan of Care Interventions Manual Therapy,Neuro Re-education,Patient/ Caregiver Education,Therapeutic Activities, Therapeutic Exercise PT Services Indicated Yes Treatment Frequency and 1 visit every other week x 3 visits Duration These treatments will address the objective and functional deficits as defined above. The patient will be advanced safely and appropriately in order for the patient to progress towards his/her prior level of function. Additional exercises will be introduced and as well as a comprehensive home exercise program upon discharge, if needed, ?to ensure carryover of functional gains achieved in the clinic. This treatment plan has been reviewed and agreement upon by the patient.
--- NOTE | 2025-03-18 11:11 | OPREHPOC ---
Outpatient Therapy Plan of Care This is a Multidisciplinary Plan of Care that may contain components documented by all disciplines (PT, OT, and ST.) PT Problem 1 PT Problem #1 Knowledge Deficit PT Goal 1 Goal / Goal Update 1. Patient will perform independent HEP 2. Patient will verbalize urge suppression strategies Target Visit 2 Progress Met PT Problem 2 PT Problem #2 Impaired Strength PT Goal 1 Goal / Goal Update 1. Pelvic floor strength 4/5 to reduce incontinence 2. Pelvic floor endurance to 10 seconds to reduce incontinence update 03/18/25 1. improved to 3 2. improved to 5 Target Visit 3 Progress Partially Met PT Problem 3 PT Problem #3 Impaired Functional ADLs PT Goal 1 Goal / Goal Update 1. Patient will report urinary incontinence no more than 1 time per week 2. Patient will only need to use 1 pad per day at most 3. Patient will be able to hold urge at least 30 minutes to allow for functional activities at home update 03/18/25 1. improved 2. not met 3. 30 minutes at times but not always Target Visit 3 Progress Partially Met
--- NOTE | 2025-03-18 11:11 | PTOPPROG ---
Assessment and note entered by Kalani Hamilton DPT Evaluation Information Assessment Status Progress Diagnosis n81.10, r35.0 ICD-10 Condition Codes (PT) Weakness R53.1,Mixed incontinence N39.46 Subjective Information Pt reports feeling a little better since starting therapy. Voiding 2 times at night on average and less than 10 times during the day. Urge incontinence with standing up once a day. Incontinence with a sneeze 1 time in the last week . Still wearing a pad 17/03, 5 per day. Has had times where she can hold urge up to 30 minutes but not always. Assessment PT Clinical Summary The patient has made some progress in therapy and reports some decreased frequency of incontinence and ability to hold urge longer at times. She does demonstrate improved pelvic floor strength and endurance, but continued weakness overall. She will benefit from further therapy to continue address strength and endurance in order to return to full function. Plan of Care Interventions Manual Therapy,Neuro Re-education,Patient/ Caregiver Education,Therapeutic Activities, Therapeutic Exercise PT Services Indicated Yes Treatment Frequency and 1 visit every other week x 2 visits Duration These treatments will address the objective and functional deficits as defined above. The patient will be advanced safely and appropriately in order for the patient to progress towards his/her prior level of function. Additional exercises will be introduced and as well as a comprehensive home exercise program upon discharge, if needed, ?to ensure carryover of functional gains achieved in the clinic. This treatment plan has been reviewed and agreement upon by the patient.
--- NOTE | 2025-04-13 11:23 | OPREHPOC ---
Outpatient Therapy Plan of Care This is a Multidisciplinary Plan of Care that may contain components documented by all disciplines (PT, OT, and ST.) PT Problem 1 PT Problem #1 Knowledge Deficit PT Goal 1 Goal / Goal Update 1. Patient will perform independent HEP 2. Patient will verbalize urge suppression strategies Target Visit 2 Progress Met PT Problem 2 PT Problem #2 Impaired Strength PT Goal 1 Goal / Goal Update 1. Pelvic floor strength 4/5 to reduce incontinence 2. Pelvic floor endurance to 10 seconds to reduce incontinence update 03/18/25 1. improved to 3 2. improved to 5 Target Visit 5 Progress Partially Met PT Problem 3 PT Problem #3 Impaired Functional ADLs PT Goal 1 Goal / Goal Update 1. Patient will report urinary incontinence no more than 1 time per week 2. Patient will only need to use 1 pad per day at most 3. Patient will be able to hold urge at least 30 minutes to allow for functional activities at home update 03/18/25 1. improved 2. not met 3. 30 minutes at times but not always Target Visit 5 Progress Partially Met
--- NOTE | 2025-04-13 11:23 | PTOPDC ---
Assessment and note entered by Kalani Hamilton DPT Evaluation Information Assessment Status Discharge Diagnosis n81.10, r35.0 ICD-10 Condition Codes (PT) Weakness R53.1,Mixed incontinence N39.46 Subjective Information Pt thinks she has figured out her sleep aid medicine is preventing her from knowing she has to void until it is too late. Voiding 1-2 times at night depending how long she sleeps. Voiding less than 8 times a day. Urge incontinence still once a day, she thinks she is waiting too long to void at those moments. No recent stress incontinence. Wearing a pad at all times, 2 times a day. Can hold urge 15 minutes. Reported Pain Level Pain Score 0: Self Report Assessment PT Clinical Summary The patient has made good progress in therapy and reports decreased incontinence, decreased pad use, and improvements with urgency. Patient would like to try independent HEP at this time and has been educated to follow up with MD and/or PT as needed. Plan of Care PT Services Indicated No
== END 2025-04-13 13:06 | disposition home or self-care (01) ==
LOC: ANHPT 11:00
PROVIDERS: PCP Nurse Practitioner Family; Visit Provider Nurse Practitioner Obstetrics & Gynecology
DX: N81.10 Cystocele, unspecified (principal); R35.0 Frequency of micturition
CPT/HCPCS: 97112; 97161; 97530

== ENCOUNTER 2025-06-02 14:20 | Inpatient (IN) | payer MEDICARE, SELFPAY ==
--- NOTE | ~2025-06-02 | CT_ITS ---
Exam: CT abdomen and pelvis with contrast Clinical History: [Left lower abdominal pain. ] Comparison: [ None available] Technique: Multiple axial CT images of the abdomen and pelvis were obtained with IV contrast. Sagittal and coronal reformatted images were obtained. FINDINGS: Lung bases: [Calcified granuloma in the left lower lobe. There are a few small patchy and reticular opacities in the lower lungs. ] Liver: [ No mass.] [ No intrahepatic biliary duct dilatation.] There is a too small to characterize low-attenuation lesion in the left lobe of the liver. Gallbladder: [ No wall thickening or stones.] Common bile duct: [ Normal caliber.] [ No stones.] Spleen: [ Within normal limits.] Pancreas: [ No mass. No pancreatic fluid collection.] Adrenals: [ No masses.] Kidneys: [ No masses. There are a few too small to characterize low-attenuation lesions in the kidneys. There is a 1.3 cm calcification in the proximal left ureter causing moderate left-sided hydronephrosis. Small amount of fat stranding about the left kidney. Lymph nodes: [ No adenopathy in the abdomen or pelvis.] Stomach, small bowel and colon: [ No bowel wall thickening or obstruction.] Small hiatal hernia. Peritoneum cavity: [ No mesenteric fat stranding or fluid.] Bladder: Uterus is heterogeneous. There is a 1 cm calcification in the uterus possibly a calcified uterine fibroid. Small amount of nonspecific fluid in the endometrial cavity. There is a 3.1 cm mass abutting the anterior fundus of the uterus possibly a subserosal fibroid. Other etiologies are possible. A pelvic ultrasound is recommended. Osseous structures: [ No acute fracture or destructive lesion.] [ Multilevel degenerative change in the visualized spine.] Abdominal aorta: [ No aneurysm.] Additional findings: [ None of significance.] IMPRESSION: 1. There is a 1.3 cm calcification in the proximal left ureter causing moderate left-sided hydronephrosis. 2. Small hiatal hernia. 3. Uterus is heterogeneous. There is a 1 cm calcification in the uterus possibly a calcified uterine fibroid. Small amount of nonspecific fluid in the endometrial cavity. Consider a pelvic ultrasound for further assessment. 4. There is a 3.1 cm mass abutting the anterior fundus of the uterus possibly a subserosal fibroid. Other etiologies are possible. A pelvic ultrasound is recommended to exclude a pelvic mass. Reviewed, dictated and finalized at location Q. IMPRESSION: 1. There is a 1.3 cm calcification in the proximal left ureter causing moderate left-sided hydronephrosis. 2. Small hiatal hernia. 3. Uterus is heterogeneous. There is a 1 cm calcification in the uterus possibl y a calcified uterine fibroid. Small amount of nonspecific fluid in the endomet rial cavity. Consider a pelvic ultrasound for further assessment. 4. There is a 3.1 cm mass abutting the anterior fundus of the uterus possibly a subserosal fibroid. Other etiologies are possible. A pelvic ultrasound is alexis mmended to exclude a pelvic mass.
--- NOTE | ~2025-06-02 | XR_ITS ---
EXAMINATION: XR stent kub - surgery DATE: 06/03/2025 15:49 INDICATION: Left ureteral stent placement TECHNIQUE: 5 fluoroscopic images of the abdomen and pelvis were obtained during procedure performed by Dr. Villatoro. Radiologist was not present for the imaging or procedure. The amount of fluoroscopy time used during this procedure was 0.9 minutes. Total DAP was 2.14 mGym^2. COMPARISON: 06/02/25 FINDINGS: Images demonstrate cannulation of the left ureter and retrograde contrast injection into the left renal collecting system with mild left hydronephrosis. A wire is advanced through the catheter into an upper pole calyx of the left kidney. Final images demonstrate the loop of a left ureteral stent coiled in the left renal pelvis which is difficult to distinguish from the injected contrast. IMPRESSION: 1. Fluoroscopy utilized during urologic procedure including placement of a left intraureteral stent. See procedure note for further detail. Reviewed, dictated and finalized at location A.
--- NOTE | ~2025-06-02 | XR_ITS ---
EXAMINATION: XR abdomen/kub 1V DATE: 06/02/2025 17:13 INDICATION: Ureterolithiasis TECHNIQUE: A supine view of the abdomen on 2 radiographs was obtained. COMPARISON: None. FINDINGS: Moderate left-sided hydronephrosis. Retained contrast is noted in the left pelvicalyceal system and proximal left ureter. Moderate amount of stool and air in the nondilated large bowel. Contrast is noted within the bladder. Small amount of air in nondilated small bowel. IMPRESSION: 1. Moderate left-sided hydronephrosis identified by retained contrast in the left pelvicalyceal system and proximal left ureter. 2. Contrast is noted within the bladder. 3. Nonspecific abdomen with a moderate amount of stool. If symptoms persist or worsen, consider a short-term follow-up study or additional imaging for further assessment. Reviewed, dictated and finalized at location Q. IMPRESSION: 1. Moderate left-sided hydronephrosis identified by retained contrast in the le ft pelvicalyceal system and proximal left ureter. 2. Contrast is noted within the bladder. 3. Nonspecific abdomen with a moderate amount of stool. If symptoms persist or worsen, consider a short-term follow-up study or additio nal imaging for further assessment.
--- NOTE | ~2025-06-02 | US_ITS ---
Clinical history:Uterine abnormality EXAM: Ultrasound pelvis complete TECHNIQUE:Multiple static grayscale images and color Doppler transabdominal images were obtained of the pelvis. Comparisons:CT abdomen and pelvis 06/02/2025 FINDINGS: Uterus measures 6.3 x 2.9 x 5.9 cm. Endometrial stripe was not visualized. Small echogenic focus in the uterus possibly a calcification. Ovaries were not visualized. No visualized adnexal mass, however, evaluation is limited. No free fluid identified. The study is limited due to the patient's imaging characteristics. There is bowel gas which limits evaluation. IMPRESSION: 1. Limited study. Endometrial stripe was not visualized. 2. Ovaries are not visualized. 3. No free fluid in the pelvis. If symptoms persist or worsen, consider a short-term follow-up study or additional imaging for further assessment. Reviewed, dictated and finalized at location Q. IMPRESSION: 1. Limited study. Endometrial stripe was not visualized. 2. Ovaries are not visualized. 3. No free fluid in the pelvis. If symptoms persist or worsen, consider a short-term follow-up study or additio nal imaging for further assessment.
[2025-06-02 14:25] VITALS: BP 188/81; PULSE 71; RESP 17; TEMP 36.4; O2SAT 94
--- NOTE | 2025-06-02 15:30 | ED.GENADULT ---
HPI - General Adult General Chief complaint: Back Pain/Injury <Fay Pickard December, [employer] - Last Filed: 06/02/25 15:33> Stated complaint: Lower back pain rad to abd, N/V <Fay Pickard December, - Last Filed: 06/02/25 15:33> Time Seen by Provider: 06/02/25 15:30 <Fay Pickard December,N - Last Filed: 06/02/25 15:33> Focused HPI Ayleen Pham is a 75 y/o female with complaints of having severe pain from left flank that moves around to the left lower abdomen that started off and on since February but today it became much worse, woke her up out of her sleep. She states now she is having nausea/vomiting, Last BM was this morning. Denies dysuria, denies fever/chills GENERAL: in no acute distress. HEAD: Normocephalic, atraumatic. CHEST: No respiratory distress. HEART: Regular rate and rhythm.? NEURO: ?Alert and oriented x3. Patient screened in triage and initial orders placed.? ?Additional care and disposition to be based upon?diagnostic testing and treatment. <Fay Pickard December, - Last Filed: 06/02/25 15:33> History of Present Illness HPI narrative: Agree with HPI <Jeromy Devi MD - Last Filed: 06/02/25 22:06> Related Data Home medications: Home Medications ?Medication ?Instructions ?Recorded ?Confirmed ?Last Taken ?Type amlodipine 5 mg-benazepril 40 mg 1 cap PO DAILY 01/14/25 06/02/25 Unknown History capsule rosuvastatin 40 mg tablet 40 mg PO DAILY 06/02/25 06/02/25 Unknown History turmeric root extract 500 mg 500 mg PO 3XW 06/02/25 06/02/25 Unknown History capsule <Fay Pickard December,N - Last Filed: 06/02/25 15:33> Allergies/adverse reactions: Allergies Allergy/AdvReac Type Severity Reaction Status Date / Time Sulfa (Sulfonamide Allergy Unknown Unknown Verified 06/02/25 15:46 Antibiotics) sulfanilamide Allergy Unknown Unknown Verified 06/02/25 15:46 <Fay Pickard December, [employer] - Last Filed: 06/02/25 15:33> Review of Systems Review of Systems: Gen.: Denies fevers or chills Eyes: Denies eye pain or visual change ENT: Denies congestion Respiratory: Denies shortness of breath or cough CV: As per HPI GI: As per HPI denies burning, urgency, frequency or hematuria Musculoskeletal: Denies back pain or muscle pain Neuro: Denies numbness, tingling, weakness or focal weakness Skin: Denies rash Except as documented, all other systems reviewed and negative <Jeromy Devi MD - Last Filed: 06/02/25 22:06> [facility] Past Medical History Medical History: Medical History Essential hypertension Chronic edema Acute insomnia Skin yeast infection Cellulitis Osteoarthritis of left shoulder region Left knee pain Prediabetes Depression Essential (primary) hypertension Hyperlipidemia, unspecified Hypothyroidism, unspecified Seasonal allergies <Fay Pickard December,N - Last Filed: 06/02/25 15:33> Surgical History Surgical History: Surgical History H/O shoulder surgery (~09/2024) Hx of dilation and curettage History of myomectomy Hx of tonsillectomy <Fay Pickard December, - Last Filed: 06/02/25 15:33> Family History Family History: Family History Mother Family history of osteoarthritis Family history of coronary artery disease Patient's mother is Family history of heart disease in male family member before age 55 Family history of congestive heart failure Hypertension Thyroid disorder Father Cerebrovascular accident, Onset Age: 50 Depression Thyroid disorder Sibling Family history of renal cell carcinoma Patient's brother is Hypertension Family history of malignant neoplasm of kidney Depression Sibling Status post partial removal of lung On total parenteral nutrition (TPN) <Fay Pickard December, - Last Filed: 06/02/25 15:33> Social History Social History: Social History Smoking status: Former smoker Smoking end date: 08/25/91 Alcohol intake: current Substance use: never Substance use type: does not use Do You Feel Safe in your Home?: Yes Lack of Transportation: No Lack of Food: Never True Current Housing: I Have Housing Concerned About Future Housing: No Difficulty Paying Gas/Electric Bills: No Difficulty Paying for Meds: No Currently Unemployed: No Difficulty w/ Childcare or Family Care: No Living arrangements: with family Occupation/Education: retired Gender identity (if verbalized by the patient): Female Agree to blood products: Yes <Fay Murillo, [employer] - Last Filed: 06/02/25 15:33> Exam Narrative: APPEARANCE: No acute distress, nontoxic, resting in bed EYES: EOMI HEENT: Normocephalic, atraumatic, OMM RESPIRATORY: No respiratory distress Clear to auscultation bilaterally with no rhonchi wheezing or rales. CARDIOVASCULAR: Regular rate and rhythm without murmurs rubs or gallops. ABDOMINAL: Soft, CVA tenderness on the left, nondistended, no rebound or guarding MUSCULOSKELETAl: Moves all extremities. No clubbing, cyanosis or edema. NEURO: Awake and alert. Following commands, speech normal, no focal deficits SKIN:: Warm, dry. No rashes lesions or abrasions PSYCHIATRIC: Normal affect/mood, <Jeromy Devi MD - Last Filed: 06/02/25 22:06> Course Vital Signs Vital signs: Vital Signs Temperature 97.5 F L 06/02/25 14:25 Pulse Rate 71 06/02/25 14:25 Respiratory Rate 17 06/02/25 14:25 Blood Pressure 188/81 H 06/02/25 14:25 Pulse Oximetry 94 06/02/25 14:25 Oxygen Delivery Room Air 06/02/25 14:25 Temperature 97.6 F 06/02/25 20:09 Pulse Rate 61 06/02/25 20:09 Respiratory Rate 16 06/02/25 20:09 Blood Pressure 131/74 06/02/25 20:09 Pulse Oximetry 94 06/02/25 20:09 Oxygen Delivery Room Air 06/02/25 15:46 <Fay Murillo, [employer] - Last Filed: 06/02/25 15:33> Vital Signs Temperature 97.5 F L 06/02/25 14:25 Pulse Rate 71 06/02/25 14:25 Respiratory Rate 17 06/02/25 14:25 Blood Pressure 188/81 H 06/02/25 14:25 Pulse Oximetry 94 06/02/25 14:25 Oxygen Delivery Room Air 06/02/25 14:25 Temperature 97.6 F 06/02/25 20:09 Pulse Rate 61 06/02/25 20:09 Respiratory Rate 16 06/02/25 20:09 Blood Pressure 131/74 06/02/25 20:09 Pulse Oximetry 94 06/02/25 20:09 Oxygen Delivery Room Air 06/02/25 15:46 <Jeromy Devi MD - Last Filed: 06/02/25 22:06> Medical Decision Making MDM Narrative Medical decision making narrative: 75-year-old female presenting for flank pain. On initial evaluation patient was in no acute distress, afebrile, hemodynamically stable. She did have CVA tenderness on left. She leukocytosis at 12.7 with a neutrophil predominance. CMP without significant abnormalities. UA likely consistent with contaminated specimen. CT abdomen/pelvis did reveal an obstructive 1.3 cm ureteral stone in the proximal ureter with hydronephrosis. I did speak with Dr. Link, urology, will see the patient as a consult, does recommend a KUB in the meantime for possible lithotripsy. Patient was covered with Rocephin for possible infected ureterolithiasis, however, UA is more consistent with contaminated specimen. Case was discussed with hospitalist who will admit the patient. <Jeromy Devi MD - Last Filed: 06/02/25 22:06> Differential Diagnosis Differential Diagnosis: Pyelonephritis, ureterolithiasis, constipation, enteritis, enterocolitis <Jeromy Devi MD - Last Filed: 06/02/25 22:06> Medical Records Medical records reviewed: Yes I reviewed the external patient's medical records. <Jeromy Devi MD - Last Filed: 06/02/25 22:06> Vital Signs Vital Signs: Vital Signs Temperature 97.5 F L 06/02/25 14: Pulse Rate 71 06/02/25 14: Respiratory Rate 17 06/02/25 14: Blood Pressure 188/81 H 06/02/25 14:25 Pulse Oximetry 94 06/02/25 14:25 Oxygen Delivery Room Air 06/02/25 14:25 Temperature 97.6 F 06/02/25 20:09 Pulse Rate 61 06/02/25 20:09 Respiratory Rate 16 06/02/25 20:09 Blood Pressure 131/74 06/02/25 20:09 Pulse Oximetry 94 06/02/25 20:09 Oxygen Delivery Room Air 06/02/25 15:46 <Fay Murillo APRN - Last Filed: 06/02/25 15:33> Vital Signs Temperature 97.5 F L 06/02/25 14:25 Pulse Rate 71 06/02/25 14:25 Respiratory Rate 17 06/02/25 14:25 Blood Pressure 188/81 H 06/02/25 14:25 Pulse Oximetry 94 06/02/25 14:25 Oxygen Delivery Room Air 06/02/25 14:25 Temperature 97.6 F 06/02/25 20:09 Pulse Rate 61 06/02/25 20:09 Respiratory Rate 16 06/02/25 20:09 Blood Pressure 131/74 06/02/25 20:09 Pulse Oximetry 94 06/02/25 20:09 Oxygen Delivery Room Air 06/02/25 15:46 <Jeromy Devi MD - Last Filed: 06/02/25 22:06> Lab Data Lab results reviewed: Yes I reviewed the patient's lab results. <Jeromy Devi MD - Last Filed: 06/02/25 22:06> Result diagrams: 06/02/25 15:54 06/02/25 15:54 <Fay Murillo APRN - Last Filed: 06/02/25 15:33> Labs: Lab Results 06/02/25 Range/Units 15:54 WBC 12.7 H (4.5-10.0) K/mm3 RBC 4.99 (4.2-5.4) M/mm3 Hgb 14.7 (12.0-15.0) g/dL Hct 44.0 (37.0-47.0) % MCV 88.2 (80-100) fl MCH 29.5 (26-34) pg MCHC 33.4 (32-36) g/dl RDW 12.3 (11.5-14.5) % Plt Count 203 (150-375) k/mm3 MPV 9.7 (7.4-10.4) fl Immature Gran % (Auto) 0.3 (0-0.5) % Neut % (Auto) 88.3 H (45.5-73.1) % Lymph % (Auto) 7.0 L (18.3-44.2) % [place] % (Auto) 3.5 (2.6-8.5) % Eos % (Auto) 0.6 (0-4.4) % Baso % (Auto) 0.3 (0.2-1.2) % Lymph # (Auto) 0.89 L (0.9-3.2) K/mm3 [place] # (Auto) 0.5 (0.1-0.6) K/mm3 Eos # (Auto) 0.1 (0-0.3) K/mm3 Baso # (Auto) 0.0 (0.0-0.1) K/mm3 Abs Immat Gran (auto) 0.04 H (0.00-0.031) K/mm3 Absolute Neuts (auto) 11.2 H (1.3-6.7) K/mm3 Absolute Nucleated RBC 0.000 (0.0-0.012) K/mm3 Nucleated RBC % 0.0 (0.0-0.2) % Sodium 139 (137-145) mmol/L Potassium 4.2 (3.4-5.0) mmol/L Chloride 101 (98-107) mmol/L Carbon Dioxide 27 (22-30) mmol/L Anion Gap 11 (4-12) mmol/L BUN 19 H (7-17) mg/dL Creatinine 0.93 (0.7-1.0) mg/dL Estim Creat Clear Calc 58 ml/min Estimated GFR 59 (59 - ) Glucose 141 H (65-110) mg/dL Calcium 9.3 (8.4-10.2) mg/dL Total Bilirubin 0.6 (0.2-1.3) mg/dL AST 30 (14-36) U/L ALT 25 (6-35) U/L Alkaline Phosphatase 123 (38-126) U/L Total Protein 8.5 H (6.3-8.2) g/dL Albumin 4.5 (3.5-5.1) g/dL Lipase 40 (23-300) U/L Urine Color Yellow (Yellow) Urine Appearance Cloudy H (Clear) Urine pH 7.0 (5.0-9.0) Ur Specific [place] 1.018 (1.001-1.035) Urine Protein 2+ H (Negative) mg/dL Urine Glucose (UA) Negative (Negative) mg/dL Urine Ketones Negative (Negative) mg/dL Ur Blood (Man) Non-hemolyzed trace H (Negative) Urine Nitrate Negative (Negative) Urine Bilirubin Negative (Negative) Urine Urobilinogen 0.2 (<2.0) mg/dL Leukocyte Esterase Rfl 2+ H (Negative) WALDEMAR/UL Urine RBC 6-10 H (0-2) /hpf Urine WBC 51-100 H (0-3) /hpf Ur Squamous Epith Cells Many H (Few) /hpf Urine Bacteria 2+ H /hpf Urine Casts 0-2 <Fay Murillo, [employer] - Last Filed: 06/02/25 15:33> Lab Results 06/02/25 Range/Units 15:54 WBC 12.7 H (4.5-10.0) K/mm3 RBC 4.99 (4.2-5.4) M/mm3 Hgb 14.7 (12.0-15.0) g/dL Hct 44.0 (37.0-47.0) % MCV 88.2 (80-100) fl MCH 29.5 (26-34) pg MCHC 33.4 (32-36) g/dl RDW 12.3 (11.5-14.5) % Plt Count 203 (150-375) k/mm3 MPV 9.7 (7.4-10.4) fl Immature Gran % (Auto) 0.3 (0-0.5) % Neut % (Auto) 88.3 H (45.5-73.1) % Lymph % (Auto) 7.0 L (18.3-44.2) % [place] % (Auto) 3.5 (2.6-8.5) % Eos % (Auto) 0.6 (0-4.4) % Baso % (Auto) 0.3 (0.2-1.2) % Lymph # (Auto) 0.89 L (0.9-3.2) K/mm3 [place] # (Auto) 0.5 (0.1-0.6) K/mm3 Eos # (Auto) 0.1 (0-0.3) K/mm3 Baso # (Auto) 0.0 (0.0-0.1) K/mm3 Abs Immat Gran (auto) 0.04 H (0.00-0.031) K/mm3 Absolute Neuts (auto) 11.2 H (1.3-6.7) K/mm3 Absolute Nucleated RBC 0.000 (0.0-0.012) K/mm3 Nucleated RBC % 0.0 (0.0-0.2) % Sodium 139 (137-145) mmol/L Potassium 4.2 (3.4-5.0) mmol/L Chloride 101 (98-107) mmol/L Carbon Dioxide 27 (22-30) mmol/L Anion Gap 11 (4-12) mmol/L BUN 19 H (7-17) mg/dL Creatinine 0.93 (0.7-1.0) mg/dL Estim Creat Clear Calc 58 ml/min Estimated GFR 59 (59 - ) Glucose 141 H (65-110) mg/dL Calcium 9.3 (8.4-10.2) mg/dL Total Bilirubin 0.6 (0.2-1.3) mg/dL AST 30 (14-36) U/L ALT 25 (6-35) U/L Alkaline Phosphatase 123 (38-126) U/L Total Protein 8.5 H (6.3-8.2) g/dL Albumin 4.5 (3.5-5.1) g/dL Lipase 40 (23-300) U/L Urine Color Yellow (Yellow) Urine Appearance Cloudy H (Clear) Urine pH 7.0 (5.0-9.0) Ur Specific [place] 1.018 (1.001-1.035) Urine Protein 2+ H (Negative) mg/dL Urine Glucose (UA) Negative (Negative) mg/dL Urine Ketones Negative (Negative) mg/dL Ur Blood (Man) Non-hemolyzed trace H (Negative) Urine Nitrate Negative (Negative) Urine Bilirubin Negative (Negative) Urine Urobilinogen 0.2 (<2.0) mg/dL Leukocyte Esterase Rfl 2+ H (Negative) WALDEMAR/UL Urine RBC 6-10 H (0-2) /hpf Urine WBC 51-100 H (0-3) /hpf Ur Squamous Epith Cells Many H (Few) /hpf Urine Bacteria 2+ H /hpf Urine Casts 0-2 <Jeromy Devi MD - Last Filed: 06/02/25 22:06> Imaging Data Radiologist's impression: Impressions Abdomen/Pelvis CT 06/02/25 16:35 IMPRESSION: 1. There is a 1.3 cm calcification in the proximal left ureter causing moderate left-sided hydronephrosis. 2. Small hiatal hernia. 3. Uterus is heterogeneous. There is a 1 cm calcification in the uterus possibly a calcified uterine fibroid. Small amount of nonspecific fluid in the endometrial cavity. Consider a pelvic ultrasound for further assessment. 4. There is a 3.1 cm mass abutting the anterior fundus of the uterus possibly a subserosal fibroid. Other etiologies are possible. A pelvic ultrasound is recommended to exclude a pelvic mass. <Jeromy Devi MD - Last Filed: 06/02/25 22:06> Discharge Plan Discharge Clinical Impression: Ureterolithiasis Hydronephrosis Qualifiers: Hydronephrosis type: with ureteral calculous obstruction Qualified Code(s): N13.2 - Hydronephrosis with renal and ureteral calculous obstruction <Fay Murillo, ALEENA - Last Filed: 06/02/25 15:33> Patient Disposition: Still a Patient <Fay Murillo APRN - Last Filed: 06/02/25 15:33> Condition: Stable <Fay Murillo APRN - Last Filed: 06/02/25 15:33>
[2025-06-02 15:46] VITALS: BP 183/85; PULSE 66; RESP 16; TEMP 36.6; O2SAT 98
[2025-06-02 16:01] LABS: Hematocrit 44.0 % (37.0-47.0); Hemoglobin 14.7 g/dL (12.0-15.0); Immature Granulocyte Percent A 0.3 % (0-0.5); Lymphocytes Absolute Auto 0.89 K/mm3 (0.9-3.2); Mean Corpuscular HGB Conc 33.4 g/dl (32-36); Mean Corpuscular Hemoglobin 29.5 pg (26-34); Mean Corpuscular Volume 88.2 fl (80-100); Nucleated Red Blood Cells Absolute Auto 0.000 K/mm3 (0.0-0.012); Nucleated Red Blood Cells Perc 0.0 % (0.0-0.2); Platelet Count Result 203 k/mm3 (150-375); Red Blood Count 4.99 M/mm3 (4.2-5.4); White Blood Count 12.7 K/mm3 (4.5-10.0)
[2025-06-02 16:07] LABS: Add Urine Microscopic? YES; Appearance Urine Cloudy (Clear); Glucose Urine UA Negative (Negative); Leukocyte Esterase Ur 2+ LEU/UL (Negative); Nitrate Urine Negative (Negative); Non Pathogenic Casts 0-2; Specific Grav Ur 1.018 (1.001-1.035)
[2025-06-02 16:12] LABS: Alanine Aminotransferase 25 U/L (6-35); Albumin Level 4.5 g/dL (3.5-5.1); Alkaline Phosphatase 123 U/L (38-126); Anion Gap 11 mmol/L (4-12); Aspartate Amino Transferase 30 U/L (14-36); Bilirubin,Total 0.6 mg/dL (0.2-1.3); Blood Urea Nitrogen 19 mg/dL (7-17); Calcium 9.3 mg/dL (8.4-10.2); Carbon Dioxide 27 mmol/L (22-30); Chloride 101 mmol/L (98-107); Estimated CRCL calculation 58 ml/min; Estimated Glomerular Filt Rate 59; Glucose 141 mg/dL (65-110); Lipase 40 U/L (23-300); Potassium 4.2 mmol/L (3.4-5.0); Sodium 139 mmol/L (137-145); Total Protein 8.5 g/dL (6.3-8.2)
[2025-06-02] MEDS: ONDANSETRON INJ 4 MG/2 ML VIAL IV PUSH (17:12)
[2025-06-02] MEDS: MORPHINE SULFATE (*CRX) 4 MG/ML INJ IV PUSH (17:16)
[2025-06-02 17:20] VITALS: BP 156/75; PULSE 70; RESP 13; O2SAT 94
[2025-06-02] MEDS: cefTRIAXone 2 GM in SODIUM CHLORIDE 0.9% IV 100 ML 200 ML IVPB (17:20)
[2025-06-02 18:10] VITALS: BP 131/72; PULSE 65; RESP 13; O2SAT 95
[2025-06-02 18:35] VITALS: BP 128/69; PULSE 63; RESP 13; O2SAT 96
--- NOTE | 2025-06-02 20:01 | ADMGEN ---
This patient, Ayleen Pham, was admitted to 2 Medical Room [id number]. Patient/family oriented to hospital policies and general routines including ID bracelet, bed and alarms, visiting hours, pain management, procedures, bathroom and other care routines, personal items, smoking policy, room service/diet, and visiting hours. Information on how to activate the Rapid Response Team has been discussed. Patient/Family are encouraged to report perceived risks to care and to ask questions if they do not understand what they are told or what they should do.
[2025-06-02 20:09] VITALS: BP 131/74; PULSE 61; RESP 16; TEMP 36.4; O2SAT 94
[2025-06-02 20:10] VITALS: BMI 53.0
[2025-06-02] MEDS: MORPHINE SULFATE (*CRX) 4 MG/ML INJ 2 MG IV PUSH (21:28)
[2025-06-02] MEDS: KETOROLAC 15 MG/ML VIAL (*BKC) IV PUSH (21:29)
[2025-06-02] MEDS: SODIUM CHLORIDE 0.9% IV 1,000 ML 125 ML IV CONT (21:30)
--- NOTE | 2025-06-02 23:46 | PC.NURSE ---
Per pt, when completing admission and asking about code status, pt okay with having CPR done but would not like to have a breathing tube placed.
[2025-06-03] VITALS (14 sets, daily range): BP systolic 126–185; BP diastolic 65–91; PULSE 58–83; RESP 12–18; TEMP 36.2–36.8; O2SAT 92–100
--- NOTE | 2025-06-03 01:13 | PM.IMHP ---
H&P: HPI History of Present Illness Date/Time: 06/03/25 01:13 Chief Complaint: Flank pain Narrative: 75-year-old female with PMH hypothyroidism, essential hypertension, hyperlipidemia, depression, presents to [facility] on 06/02/2025 complaining of severe left flank pain that moved around the left lower abdomen that has been going on and off since February above became worse on day of admission and woke her up from sleep. She has had some nausea vomiting as well. Denies any dysuria, increased urinary frequency, shortness of breath, chest pain, fevers, chills. WBC 12.7, urinalysis grossly contaminated with wbc's, bacteria, leukocyte esterase. CT abdomen and pelvis with contrast demonstrating 1.3 cm calcification in the proximal left ureter causing moderate left-sided hydronephrosis, small hiatal hernia, with a heterogeneous uterus and a 1 cm calcification, 3.1 cm mass abutting the anterior fundus of uterus. Urology consulted from the ER, agreed to consult on this patient to be admitted. She was given ceftriaxone 2 g IV x1, Zofran 4 mg IV x1, morphine 4 mg IV x1. The patient was resting comfortably thereafter. Review of Systems Review of Systems: All systems reviewed & are unremarkable except as noted in HPI and below (Subject) PMFSH Past Medical History Medical History Essential hypertension Chronic edema Acute insomnia Skin yeast infection Cellulitis Osteoarthritis of left shoulder region Left knee pain Prediabetes Depression Essential (primary) hypertension Hyperlipidemia, unspecified Hypothyroidism, unspecified Seasonal allergies Surgical History Surgical History H/O shoulder surgery (~09/2024) Hx of dilation and curettage History of myomectomy Hx of tonsillectomy Family History Family History (Updated 06/02/25 @ 22:59 by Karina Renner RN) Mother Family history of osteoarthritis Family history of heart disease in male family member before age 55 Patient's mother is Family history of coronary artery disease Family history of congestive heart failure Hypertension Thyroid disorder Amputation below knee Father Depression Thyroid disorder Cerebrovascular accident, Onset Age: 50 Sibling Family history of malignant neoplasm of kidney Family history of renal cell carcinoma Depression Patient's brother is Hypertension Lung cancer Sibling On total parenteral nutrition (TPN) Status post partial removal of lung Social History Social History Smoking status: Former smoker Tobacco type: cigarettes Smoking end date: 08/25/91 Alcohol intake: current Drinks per week: 1 Substance use: never Substance use type: does not use Do You Feel Safe in your Home?: Yes Lack of Transportation: No Lack of Food: Never True Current Housing: I Have Housing Concerned About Future Housing: No Difficulty Paying Gas/Electric Bills: No Difficulty Paying for Meds: No Currently Unemployed: No Education: Master's Degree or Higher Difficulty w/ Childcare or Family Care: No Living arrangements: with family Occupation/Education: retired Gender identity (if verbalized by the patient): Female Spiritual care concerns: No Agree to blood products: Yes Meds Home Medications and Allergies Home Medications ?Medication ?Instructions ?Recorded ?Confirmed ?Type albuterol sulfate 90 mcg/actuation 2 puff inhalation Q4H PRN 03/03/24 06/02/25 Rx aerosol inhaler shortness of breath or wheezing #8.5 grams metoprolol tartrate 25 mg tablet 25 mg PO BID #180 tabs 01/10/25 06/02/25 Rx amlodipine 5 mg-benazepril 40 mg 1 cap PO DAILY 01/14/25 06/02/25 History capsule meloxicam 7.5 mg tablet 7.5 mg PO BID #180 tabs 05/31/25 06/02/25 Rx cholecalciferol (vitamin D3) 50 50 mcg PO HS 06/02/25 06/02/25 History mcg (2,000 unit) capsule citalopram 20 mg tablet 20 mg PO HS 06/02/25 06/02/25 History doxepin 25 mg capsule 25 mg PO HS PRN sleep 06/02/25 06/02/25 History levothyroxine 150 mcg tablet 150 mcg PO HS 06/02/25 06/02/25 History rosuvastatin 40 mg tablet 40 mg PO HS 06/02/25 06/02/25 History turmeric root extract 500 mg 500 mg PO 3XW 06/02/25 06/02/25 History capsule Allergies Allergy/AdvReac Type Severity Reaction Status Date / Time Sulfa (Sulfonamide Allergy Unknown Unknown Verified 06/02/25 15:46 Antibiotics) sulfanilamide Allergy Unknown Unknown Verified 06/02/25 15:46 Vital Signs Vital Signs - 24 hr 06/02/25 14:25 06/02/25 15:46 06/02/25 17:20 Temperature 97.5 F L 97.9 F Pulse Rate 71 66 70 Respiratory Rate 17 16 13 Blood Pressure 188/81 H 183/85 H 156/75 H Pulse Oximetry 94 98 94 Oxygen Delivery Room Air Room Air 06/02/25 18:10 06/02/25 18:35 06/02/25 20:09 Temperature 97.6 F Pulse Rate 65 63 61 Respiratory Rate 13 13 16 Blood Pressure 131/72 128/69 131/74 Pulse Oximetry 95 96 94 Oxygen Delivery Exam Const: General: comfortable and no acute distress HENMT: Mouth: Yes moist mucous membranes Neck: Neck: supple Resp: Effort & Inspection: normal respiratory effort Auscultation: clear to auscultation bilaterally Cardio: Rate: regular rate Rhythm: regular rhythm GI: GI Palp: Yes Soft to palpation and No Tenderness to palpation present (GI) H&P: Results Labs Labs: Short CBC 06/02/25 Range/Units 15:54 WBC 12.7 H (4.5-10.0) K/mm3 Hgb 14.7 (12.0-15.0) g/dL Hct 44.0 (37.0-47.0) % Plt Count 203 (150-375) k/mm3 BMP 06/02/25 15:54 Sodium 139 Potassium 4.2 Chloride 101 Carbon Dioxide 27 BUN 19 H Creatinine 0.93 Glucose 141 H Calcium 9.3 Liver Function 06/02/25 Range/Units 15:54 Total Bilirubin 0.6 (0.2-1.3) mg/dL AST 30 (14-36) U/L ALT 25 (6-35) U/L Alkaline Phosphatase 123 (38-126) U/L Albumin 4.5 (3.5-5.1) g/dL Urine 06/02/25 Range/Units 15:54 Urine Color Yellow (Yellow) Urine Appearance Cloudy H (Clear) Urine pH 7.0 (5.0-9.0) Ur Specific [place] 1.018 (1.001-1.035) Urine Protein 2+ H (Negative) mg/dL Urine Glucose (UA) Negative (Negative) mg/dL Assessment and Plan Assessment and plan (1) Ureterolithiasis: Code(s): N20.1 - Calculus of ureter Status: Acute (2) Hydronephrosis: Qualifiers: Hydronephrosis type: with ureteral calculous obstruction Qualified Code(s): N13.2 - Hydronephrosis with renal and ureteral calculous obstruction Code(s): N13.30 - Unspecified hydronephrosis Status: Acute Plan 75-year-old female with PMH hypothyroidism, essential hypertension, hyperlipidemia, depression, presents to [facility] on 06/02/2025 complaining of severe left flank pain that moved around the left lower abdomen that has been going on and off since February above became worse on day of admission and woke her up from sleep. She has had some nausea vomiting as well. Denies any dysuria, increased urinary frequency, shortness of breath, chest pain, fevers, chills. WBC 12.7, urinalysis grossly contaminated with wbc's, bacteria, leukocyte esterase. CT abdomen and pelvis with contrast demonstrating 1.3 cm calcification in the proximal left ureter causing moderate left-sided hydronephrosis, small hiatal hernia, with a heterogeneous uterus and a 1 cm calcification, 3.1 cm mass abutting the anterior fundus of uterus. Urology consulted from the ER, agreed to consult on this patient to be admitted. She was given ceftriaxone 2 g IV x1, Zofran 4 mg IV x1, morphine 4 mg IV x1. The patient was resting comfortably thereafter. ----- NPO. SCDs. Urology consultation. Normal saline at 125 cc/hour. Hold [employer] antihypertensives for now. Pain control p.r.n.. Can continue ceftriaxone for now. It does not appear urine culture was reflex, a place in order to obtain that so we can follow-up on any culture and sensitivities. Trend leukocytosis. Patient is afebrile. She appears nontoxic when resting comfortably after analgesia. Transvaginal ultrasound ordered. ----- Patient wishes to be full code. Hospitalist MIPS Advance Care Plan I have confirmed that the patient's Advanced Care Plan is present, code status is documented, or surrogate decision maker is listed in patient medical record.: Yes Medication Reconciliation I have utilized all available resources to obtain, update and review the patients current medications (includes all prescriptions, OTC, herbals, cannabis, and nutritional supplements).: Yes
[2025-06-03] MEDS: KETOROLAC 15 MG/ML VIAL (*BKC) IV PUSH ×3 (01:58→18:22)
[2025-06-03 05:13] LABS: Hematocrit 37.4 % (37.0-47.0); Hemoglobin 12.1 g/dL (12.0-15.0); Immature Granulocyte Percent A 0.3 % (0-0.5); Lymphocytes Absolute Auto 1.75 K/mm3 (0.9-3.2); Mean Corpuscular HGB Conc 32.4 g/dl (32-36); Mean Corpuscular Hemoglobin 29.0 pg (26-34); Mean Corpuscular Volume 89.7 fl (80-100); Nucleated Red Blood Cells Absolute Auto 0.000 K/mm3 (0.0-0.012); Nucleated Red Blood Cells Perc 0.0 % (0.0-0.2); Platelet Count Result 191 k/mm3 (150-375); Red Blood Count 4.17 M/mm3 (4.2-5.4); White Blood Count 10.3 K/mm3 (4.5-10.0)
[2025-06-03 05:32] LABS: Anion Gap 5 mmol/L (4-12); Blood Urea Nitrogen 24 mg/dL (7-17); Calcium 8.6 mg/dL (8.4-10.2); Carbon Dioxide 29 mmol/L (22-30); Chloride 104 mmol/L (98-107); Estimated CRCL calculation 39 ml/min; Estimated Glomerular Filt Rate 36; Glucose 112 mg/dL (65-110); Magnesium 2.0 mg/dL (1.6-2.3); Potassium 4.1 mmol/L (3.4-5.0); Sodium 138 mmol/L (137-145)
[2025-06-03] MEDS: SODIUM CHLORIDE 0.9% IV 1,000 ML 125 ML IV CONT ×2 (05:46→12:56)
--- NOTE | 2025-06-03 07:11 | WPDURCON ---
Assessment and Plan Assessment and plan (1) Ureterolithiasis: Code(s): N20.1 - Calculus of ureter Status: Acute (2) Hydronephrosis: Qualifiers: Hydronephrosis type: with ureteral calculous obstruction Qualified Code(s): N13.2 - Hydronephrosis with renal and ureteral calculous obstruction Code(s): N13.30 - Unspecified hydronephrosis Status: Acute (3) Urinary tract infection: Code(s): N39.0 - Urinary tract infection, site not specified Status: Acute Assessment and Plan: Cystoscopy with left ureteral stent placement today Definitive stone management with either ureteroscopy / laser lithotripsy or ESWL [id number], once infection has been thoroughly treated. Urology Consult Note HPI Date Seen: 06/03/25 Requesting Physician: Enzo alonso Oca, MD Primary Care Provider: Ines Menjivar MD Consult Narrative Narrative: Ayleen Pham is a 75 year old female without known history of prior urolithiasis who has had intermittent left flank pain for several months. Yesterday became much more intense and was associated with nausea vomiting. She denies fever chills or gross hematuria. Imaging demonstrates an obstructing large left proximal ureteral stone in urine appears infected. Review of Systems Review of Systems: All systems reviewed & are unremarkable except as noted in HPI and below PMFSH Past Medical History Medical History Essential hypertension Chronic edema Acute insomnia Skin yeast infection Cellulitis Osteoarthritis of left shoulder region Left knee pain Prediabetes Depression Essential (primary) hypertension Hyperlipidemia, unspecified Hypothyroidism, unspecified Seasonal allergies Surgical History Surgical History H/O shoulder surgery (~09/2024) Hx of dilation and curettage History of myomectomy Hx of tonsillectomy Family History Family History (Updated 06/02/25 @ 22:59 by Karina Renner RN) Mother Family history of osteoarthritis Family history of heart disease in male family member before age 55 Patient's mother is Family history of coronary artery disease Family history of congestive heart failure Hypertension Thyroid disorder Amputation below knee Father Depression Thyroid disorder Cerebrovascular accident, Onset Age: 50 Sibling Family history of malignant neoplasm of kidney Family history of renal cell carcinoma Depression Patient's brother is Hypertension Lung cancer Sibling On total parenteral nutrition (TPN) Status post partial removal of lung Social History Social History Smoking status: Former smoker Tobacco type: cigarettes Smoking end date: 08/25/91 Alcohol intake: current Drinks per week: 1 Substance use: never Substance use type: does not use Do You Feel Safe in your Home?: Yes Lack of Transportation: No Lack of Food: Never True Current Housing: I Have Housing Concerned About Future Housing: No Difficulty Paying Gas/Electric Bills: No Difficulty Paying for Meds: No Currently Unemployed: No Education: Master's Degree or Higher Difficulty w/ Childcare or Family Care: No Living arrangements: with family Occupation/Education: retired Gender identity (if verbalized by the patient): Female Spiritual care concerns: No Agree to blood products: Yes Meds Home Medications and Allergies Home Medications ?Medication ?Instructions ?Recorded ?Confirmed ?Type albuterol sulfate 90 mcg/actuation 2 puff inhalation Q4H PRN 03/03/24 06/02/25 Rx aerosol inhaler shortness of breath or wheezing #8.5 grams metoprolol tartrate 25 mg tablet 25 mg PO BID #180 tabs 01/10/25 06/02/25 Rx amlodipine 5 mg-benazepril 40 mg 1 cap PO DAILY 01/14/25 06/02/25 History capsule meloxicam 7.5 mg tablet 7.5 mg PO BID #180 tabs 05/31/25 06/02/25 Rx cholecalciferol (vitamin D3) 50 50 mcg PO HS 06/02/25 06/02/25 History mcg (2,000 unit) capsule citalopram 20 mg tablet 20 mg PO HS 06/02/25 06/02/25 History doxepin 25 mg capsule 25 mg PO HS PRN sleep 06/02/25 06/02/25 History levothyroxine 150 mcg tablet 150 mcg PO HS 06/02/25 06/02/25 History rosuvastatin 40 mg tablet 40 mg PO HS 06/02/25 06/02/25 History turmeric root extract 500 mg 500 mg PO 3XW 06/02/25 06/02/25 History capsule Allergies Allergy/AdvReac Type Severity Reaction Status Date / Time Sulfa (Sulfonamide Allergy Unknown Unknown Verified 06/02/25 15:46 Antibiotics) sulfanilamide Allergy Unknown Unknown Verified 06/02/25 15:46 Vital Signs Vital Signs - 24 hr 06/02/25 14:25 06/02/25 15:46 06/02/25 17:20 Temperature 97.5 F L 97.9 F Pulse Rate 71 66 70 Respiratory Rate 17 16 13 Blood Pressure 188/81 H 183/85 H 156/75 H Pulse Oximetry 94 98 94 Oxygen Delivery Room Air Room Air 06/02/25 18:10 06/02/25 18:35 06/02/25 20:09 Temperature 97.6 F Pulse Rate 65 63 61 Respiratory Rate 13 13 16 Blood Pressure 131/72 128/69 131/74 Pulse Oximetry 95 96 94 Oxygen Delivery 06/02/25 21:25 06/03/25 04:57 Temperature 97.7 F Pulse Rate 82 Respiratory Rate 16 Blood Pressure 128/72 Pulse Oximetry 95 Oxygen Delivery Room Air Exam Const: General: no acute distress Resp: Effort & Inspection: normal respiratory effort GI: Inspection: non-distended GI Palp: No abdominal tenderness and No Guarding due to palpation present (GI) Auscultation: normal bowel sounds Results Labs 06/03/25 04:40 06/03/25 04:40 Labs: Short CBC 06/02/25 06/03/25 Range/Units 15:54 04:40 WBC 12.7 H 10.3 H (4.5-10.0) K/mm3 Hgb 14.7 12.1 (12.0-15.0) g/dL Hct 44.0 37.4 (37.0-47.0) % Plt Count 203 191 (150-375) k/mm3 [facility] 06/02/25 06/03/25 15:54 04:40 Sodium 139 138 Potassium 4.2 4.1 Chloride 101 104 Carbon Dioxide 27 29 BUN 19 H 24 H Creatinine 0.93 1.43 H Glucose 141 H 112 H Calcium 9.3 8.6 Liver Function 06/02/25 Range/Units 15:54 Total Bilirubin 0.6 (0.2-1.3) mg/dL AST 30 (14-36) U/L ALT 25 (6-35) U/L Alkaline Phosphatase 123 (38-126) U/L Albumin 4.5 (3.5-5.1) g/dL Urine 10/09/25 Range/Units 15:54 Urine Color Yellow (Yellow) Urine Appearance Cloudy H (Clear) Urine pH 7.0 (5.0-9.0) Ur Specific [place] 1.018 (1.001-1.035) Urine Protein 2+ H (Negative) mg/dL Urine Glucose (UA) Negative (Negative) mg/dL
--- NOTE | 2025-06-03 07:13 | WPDHPUPDATE1 ---
History and Physical Update Update Date/Time: 06/03/25 07:13 History and Physical has been reviewed, including an updated exam of the patient. There are NO changes in the patient's condition. Risks, benefits, and alternatives have been discussed and questions answered. Patient agrees to proceed with procedure.
--- NOTE | 2025-06-03 07:17 | P.PNIM_ITS ---
Progress Note: A&P Assessment and Plan (1) Ureterolithiasis: Code(s): N20.1 - Calculus of ureter Status: Acute Assessment and Plan: * CT abd/pelvis: 1. There is a 1.3 cm calcification in the proximal left ureter causing moderate left-sided hydronephrosis. 2. Small hiatal hernia. 3. Uterus is heterogeneous. There is a 1 cm calcification in the uterus possibly a calcified uterine fibroid. Small amount of nonspecific fluid in the endometrial cavity. Consider a pelvic ultrasound for further assessment. 4. There is a 3.1 cm mass abutting the anterior fundus of the uterus possibly a subserosal fibroid. Other etiologies are possible. A pelvic ultrasound is recommended to exclude a pelvic mass. * NPO, SCDs for DVT prophylaxis * Continue with saline at 125 mL/hour * P.r.n. pain control * Urology consult * Cystoscopy with left ureteral stent placement today tentatively at 3:00 p.m. (2) Hydronephrosis: Qualifiers: Hydronephrosis type: with ureteral calculous obstruction Qualified Code(s): N13.2 - Hydronephrosis with renal and ureteral calculous obstruction Code(s): N13.30 - Unspecified hydronephrosis Status: Acute Assessment and Plan: * See above (3) Abnormal urinalysis: Code(s): R82.90 - Unspecified abnormal findings in urine Status: Acute Assessment and Plan: * UA: 2+ leukocyte esterase, 6-10 RBC, 51-100 WBC, many squamous epithelial cells, 2+ bacteria * UC obtained on 06/03 * started on ceftriaxone (4) Uterine mass: Code(s): N85.8 - Other specified noninflammatory disorders of uterus Status: Acute Assessment and Plan: * Abdomen/pelvis CT: There is a 3.1 cm mass abutting the anterior fundus of the uterus possibly a subserosal fibroid. Other etiologies are possible. A pelvic ultrasound is recommended to exclude a pelvic mass. * Transvaginal ultrasound ordered to rule out uterine mass, pending Plan 75-year-old female with PMH hypothyroidism, essential hypertension, hyperlipidemia, depression, presents to [facility] on 06/02/2025 complaining of severe left flank pain that moved around the left lower abdomen that has been going on and off since February above became worse on day of admission and woke her up from sleep. She has had some nausea vomiting as well. Denies any dysuria, increased urinary frequency, shortness of breath, chest pain, fevers, chills. WBC 12.7, urinalysis grossly contaminated with wbc's, bacteria, leukocyte esterase. CT abdomen and pelvis with contrast demonstrating 1.3 cm calcification in the proximal left ureter causing moderate left-sided hydronephrosis, small hiatal hernia, with a heterogeneous uterus and a 1 cm calcification, 3.1 cm mass abutting the anterior fundus of uterus. Urology consulted from the ER, agreed to consult on this patient to be admitted. She was given ceftriaxone 2 g IV x1, Zofran 4 mg IV x1, morphine 4 mg IV x1. The patient was resting comfortably thereafter. ----- NPO. SCDs. Urology consultation. Normal saline at 125 cc/hour. Hold [employer] antihypertensives for now. Pain control p.r.n.. Can continue ceftriaxone for now. It does not appear urine culture was reflex, a place in order to obtain that so we can follow-up on any culture and sensitivities. Trend leukocytosis. Patient is afebrile. She appears nontoxic when resting comfortably after analgesia. Transvaginal ultrasound ordered. ----- Patient wishes to be full code. Subjective Date/time seen: 06/03/25 07:17 Interval history: 75-year-old female with PMH hypothyroidism, essential hypertension, hyperlipidemia, depression, presents to [facility] on 06/02/2025 complaining of severe left flank pain that moved around the left lower abdomen that has been going on and off since February above became worse on day of admission and woke her up from sleep. 06/03/2025 Patient sitting comfortably in bed at time examination. Neurology consulted, plan for left ureteral stent placement today with cystoscopy at 3:00 p.m.. Urine culture to be obtained for abnormal urinalysis, likely UTI. Patient otherwise doing okay, denies any abdominal pain, back pain, shortness of breath or chest pain. Review of Systems Review of Systems: All systems reviewed & are unremarkable except as noted in HPI and below (Subject) Exam Const: General: comfortable and no acute distress HENMT: Mouth: Yes moist mucous membranes Neck: Neck: supple Resp: Effort & Inspection: normal respiratory effort Auscultation: clear to auscultation bilaterally Cardio: Rate: regular rate Rhythm: regular rhythm Skin: General skin exam: normal color and no rashes or lesions noted Neuro: Speech: normal speech Extrem: General: normal to inspection Psych: Mental Status: mental status grossly normal Affect: normal affect Objective Data Vital Signs Vital Signs: Vital Signs - 24 hr 06/02/25 14:25 06/02/25 15:46 06/02/25 17:20 Temperature 97.5 F L 97.9 F Pulse Rate 71 66 70 Respiratory Rate 17 16 13 Blood Pressure 188/81 H 183/85 H 156/75 H Pulse Oximetry 94 98 94 Oxygen Delivery Room Air Room Air 06/02/25 18:10 06/02/25 18:35 06/02/25 20:09 Temperature 97.6 F Pulse Rate 65 63 61 Respiratory Rate 13 13 16 Blood Pressure 131/72 128/69 131/74 Pulse Oximetry 95 96 94 Oxygen Delivery 06/02/25 21:25 06/03/25 04:57 Temperature 97.7 F Pulse Rate 82 Respiratory Rate 16 Blood Pressure 128/72 Pulse Oximetry 95 Oxygen Delivery Room Air Intake/Output Intake/Output: Intake & Output 05/31/25 06/01/25 06/02/25 06/03/25 23:59 23:59 23:59 23:59 Intake Total 100 1250 Balance 100 1250 Meds/Results Medications: Active Medications Generic Name Dose Route Start Last Admin Trade Name Freq PRN Reason Stop Dose Admin Albuterol 2 puff 06/03/25 01:11 Albuterol Sulfate (*Sp) Aerosol 1 Puff INHALATION Q4HRT PRN Shortness Of Breath Or Wheezing Citalopram Hydrobromide 20 mg 06/03/25 21:00 Citalopram Hydrobromide 20 Mg Tablet PO HS LEONA Doxepin HCl 25 mg 06/03/25 01:11 Doxepin Hcl 25 Mg Capsule PO HS PRN Sleep Sodium Chloride 1,000 mls @ 125 mls/hr 06/02/25 18:50 06/03/25 05:46 Normal Saline Iv IV CONT 125 mls/hr .Q8H LEONA Administration Ketorolac Tromethamine 15 mg 06/02/25 19:00 06/03/25 06:58 Ketorolac 15 Mg/Ml Vial (*Bkc) IV PUSH 15 mg Q6H LOENA Administration Levothyroxine Sodium 150 mcg 06/03/25 06:30 06/03/25 05:46 Levothyroxine Sodium 150 Mcg Tablet PO Not Given DAILY@0630 [facility] Metoprolol Tartrate 25 mg 06/03/25 09:00 Metoprolol Tartrate 25 Mg Tablet PO Q12HR [facility] Morphine Sulfate 2 mg 06/02/25 18:49 06/02/25 21:28 Morphine Sulfate (*Crx) 4 Mg/Ml Inj IV PUSH 2 mg Q4H PRN Administration Pain Rated 7-10 Rosuvastatin Calcium 40 mg 06/03/25 21:00 Rosuvastatin 20 Mg Tablet PO HS [facility] Vitamin D 50 mcg 06/03/25 21:00 Cholecalciferol (Vitamin D3) 25 Mcg (1,000 Units) Tablet PO [facility] Radiology Results: ITS Impressions Abdomen/Pelvis CT 06/02/25 16:35 IMPRESSION: 1. There is a 1.3 cm calcification in the proximal left ureter causing moderate left-sided hydronephrosis. 2. Small hiatal hernia. 3. Uterus is heterogeneous. There is a 1 cm calcification in the uterus possibly a calcified uterine fibroid. Small amount of nonspecific fluid in the endometrial cavity. Consider a pelvic ultrasound for further assessment. 4. There is a 3.1 cm mass abutting the anterior fundus of the uterus possibly a subserosal fibroid. Other etiologies are possible. A pelvic ultrasound is recommended to exclude a pelvic mass. Abdomen X-Ray 06/02/25 17:36 IMPRESSION: 1. Moderate left-sided hydronephrosis identified by retained contrast in the left pelvicalyceal system and proximal left ureter. 2. Contrast is noted within the bladder. 3. Nonspecific abdomen with a moderate amount of stool. If symptoms persist or worsen, consider a short-term follow-up study or additional imaging for further assessment. Labs Labs: Laboratory Results - last 24 hr 06/02/25 06/03/25 15:54 04:40 WBC 12.7 H 10.3 H RBC 4.99 4.17 L Hgb 14.7 12.1 Hct 44.0 37.4 MCV 88.2 89.7 MCH 29.5 29.0 MCHC 33.4 32.4 RDW 12.3 12.5 Plt Count 203 191 MPV 9.7 9.8 Immature Gran % (Auto) 0.3 0.3 Neut % (Auto) 88.3 H 72.0 Lymph % (Auto) 7.0 L 17.1 L [place] % (Auto) 3.5 8.5 Eos % (Auto) 0.6 1.7 Baso % (Auto) 0.3 0.4 Lymph # (Auto) 0.89 L 1.75 [place] # (Auto) 0.5 0.9 H Eos # (Auto) 0.1 0.2 Baso # (Auto) 0.0 0.0 Abs Immat Gran (auto) 0.04 H 0.03 Absolute Neuts (auto) 11.2 H 7.4 H Absolute Nucleated RBC 0.000 0.000 Nucleated RBC % 0.0 0.0 Sodium 139 138 Potassium 4.2 4.1 Chloride 101 104 Carbon Dioxide 27 29 Anion Gap 11 5 BUN 19 H 24 H Creatinine 0.93 1.43 H Estim Creat Clear Calc 58 39 Estimated GFR 59 36 L Glucose 141 H 112 H Calcium 9.3 8.6 Magnesium 2.0 Total Bilirubin 0.6 AST 30 ALT 25 Alkaline Phosphatase 123 Total Protein 8.5 H Albumin 4.5 Lipase 40 Urine Color Yellow Urine Appearance Cloudy H Urine pH 7.0 Ur Specific [place] 1.018 Urine Protein 2+ H Urine Glucose (UA) Negative Urine Ketones Negative Ur Blood (Man) Non-hemolyzed trace H Urine Nitrate Negative Urine Bilirubin Negative Urine Urobilinogen 0.2 Leukocyte Esterase Rfl 2+ H Urine RBC 6-10 H Urine WBC 51-100 H Ur Squamous Epith Cells Many H Urine Bacteria 2+ H Urine Casts 0-2
--- NOTE | 2025-06-03 13:25 | PC.NURSE ---
pt taken down to surgery
--- NOTE | 2025-06-03 14:45 | WPDANESEPPF ---
Anes - Initial Pre Proc Eval Procedure: Operation Date: 06/03/25 15:00 Proposed Procedures p Cystoscopy, Left Stent Placement - Tomas Villatoro MD Date/Time: 06/03/25 14:45 Surgeon: Enzo alonso Oca, MD Pre Op Diagnosis: Lower back pain rad to abd, N/V Patient Data Age: 75 Gender: F Height: 1.57 m Weight: 131.5 kg Last Vital Signs Temp 36.4 C L 06/03/25 13:45 Pulse 64 06/03/25 13:45 Resp 16 06/03/25 08:51 BP 150/67 H 06/03/25 13:45 Pulse Ox 94 06/03/25 13:45 O2 Del Method Room Air 06/03/25 13:45 Allergies Allergy/AdvReac Type Severity Reaction Status Date / Time Sulfa (Sulfonamide Allergy Unknown Unknown Verified 06/03/25 13:38 Antibiotics) sulfanilamide Allergy Unknown Unknown Verified 06/03/25 13:38 Home Medications ?Medication ?Instructions ?Recorded ?Confirmed ?Type albuterol sulfate 90 mcg/actuation 2 puff inhalation Q4H PRN 03/03/24 06/02/25 Rx aerosol inhaler shortness of breath or wheezing #8.5 grams metoprolol tartrate 25 mg tablet 25 mg PO BID #180 tabs 01/10/25 06/02/25 Rx amlodipine 5 mg-benazepril 40 mg 1 cap PO DAILY 01/14/25 06/02/25 History capsule meloxicam 7.5 mg tablet 7.5 mg PO BID #180 tabs 05/31/25 06/02/25 Rx cholecalciferol (vitamin D3) 50 50 mcg PO HS 06/02/25 06/02/25 History mcg (2,000 unit) capsule citalopram 20 mg tablet 20 mg PO HS 06/02/25 06/02/25 History doxepin 25 mg capsule 25 mg PO HS PRN sleep 06/02/25 06/02/25 History levothyroxine 150 mcg tablet 150 mcg PO HS 06/02/25 06/02/25 History rosuvastatin 40 mg tablet 40 mg PO HS 06/02/25 06/02/25 History turmeric root extract 500 mg 500 mg PO 3XW 10/09/25 10/09/25 History capsule Laboratory Tests 06/02/25 06/03/25 15:54 04:40 WBC 12.7 H K/mm3 10.3 H K/mm3 (4.5-10.0) (4.5-10.0) RBC 4.99 M/mm3 4.17 L M/mm3 (4.2-5.4) (4.2-5.4) Hgb 14.7 g/dL 12.1 g/dL (12.0-15.0) (12.0-15.0) Hct 44.0 % 37.4 % (37.0-47.0) (37.0-47.0) MCV 88.2 fl 89.7 fl (80-100) (80-100) MCH 29.5 pg 29.0 pg (26-34) (26-34) MCHC 33.4 g/dl 32.4 g/dl (32-36) (32-36) RDW 12.3 % 12.5 % (11.5-14.5) (11.5-14.5) Plt Count 203 k/mm3 191 k/mm3 (150-375) (150-375) MPV 9.7 fl 9.8 fl (7.4-10.4) (7.4-10.4) Immature Gran % (Auto) 0.3 % 0.3 % (0-0.5) (0-0.5) Neut % (Auto) 88.3 H % 72.0 % (45.5-73.1) (45.5-73.1) Lymph % (Auto) 7.0 L % 17.1 L % (18.3-44.2) (18.3-44.2) [place] % (Auto) 3.5 % 8.5 % (2.6-8.5) (2.6-8.5) Eos % (Auto) 0.6 % 1.7 % (0-4.4) (0-4.4) Baso % (Auto) 0.3 % 0.4 % (0.2-1.2) (0.2-1.2) Lymph # (Auto) 0.89 L K/mm3 1.75 K/mm3 (0.9-3.2) (0.9-3.2) [place] # (Auto) 0.5 K/mm3 0.9 H K/mm3 (0.1-0.6) (0.1-0.6) Eos # (Auto) 0.1 K/mm3 0.2 K/mm3 (0-0.3) (0-0.3) Baso # (Auto) 0.0 K/mm3 0.0 K/mm3 (0.0-0.1) (0.0-0.1) Abs Immat Gran (auto) 0.04 H K/mm3 0.03 K/mm3 (0.00-0.031) (0.00-0.031) Absolute Neuts (auto) 11.2 H K/mm3 7.4 H K/mm3 (1.3-6.7) (1.3-6.7) Absolute Nucleated RBC 0.000 K/mm3 0.000 K/mm3 (0.0-0.012) (0.0-0.012) Nucleated RBC % 0.0 % 0.0 % (0.0-0.2) (0.0-0.2) Sodium 139 mmol/L 138 mmol/L (137-145) (137-145) Potassium 4.2 mmol/L 4.1 mmol/L (3.4-5.0) (3.4-5.0) Chloride 101 mmol/L 104 mmol/L (98-107) (98-107) Carbon Dioxide 27 mmol/L 29 mmol/L (22-30) (22-30) Anion Gap 11 mmol/L 5 mmol/L (4-12) (4-12) BUN 19 H mg/dL 24 H mg/dL (7-17) (7-17) Creatinine 0.93 mg/dL 1.43 H mg/dL (0.7-1.0) (0.7-1.0) Estim Creat Clear Calc 58 ml/min 39 ml/min Estimated GFR 59 36 L (59 - ) (59 - ) Glucose 141 H mg/dL 112 H mg/dL (65-110) (65-110) Calcium 9.3 mg/dL 8.6 mg/dL (8.4-10.2) (8.4-10.2) Magnesium 2.0 mg/dL (1.6-2.3) Total Bilirubin 0.6 mg/dL (0.2-1.3) AST 30 U/L (14-36) ALT 25 U/L (6-35) Alkaline Phosphatase 123 U/L (38-126) Total Protein 8.5 H g/dL (6.3-8.2) Albumin 4.5 g/dL (3.5-5.1) Lipase 40 U/L (23-300) Urine Color Yellow (Yellow) Urine Appearance Cloudy H (Clear) Urine pH 7.0 (5.0-9.0) Ur Specific [place] 1.018 (1.001-1.035) Urine Protein 2+ H mg/dL (Negative) Urine Glucose (UA) Negative mg/dL (Negative) Urine Ketones Negative mg/dL (Negative) Ur Blood (Man) Non-hemolyzed trace H (Negative) Urine Nitrate Negative (Negative) Urine Bilirubin Negative (Negative) Urine Urobilinogen 0.2 mg/dL (<2.0) Leukocyte Esterase Rfl 2+ H [place]/UL (Negative) Urine RBC 6-10 H /hpf (0-2) Urine WBC 51-100 H /hpf (0-3) Ur Squamous Epith Cells Many H /hpf (Few) Urine Bacteria 2+ H /hpf Urine Casts 0-2 Patient hx anesthesia problems: none Family hx anesthesia problems: none Results Review: All pre-operative results and documents have been reviewed as part of the pre-operative evaluation. [facility] Past Medical History Medical History Essential hypertension Chronic edema Acute insomnia Skin yeast infection Cellulitis Osteoarthritis of left shoulder region Left knee pain Prediabetes Depression Essential (primary) hypertension Hyperlipidemia, unspecified Hypothyroidism, unspecified Seasonal allergies Surgical History Surgical History H/O shoulder surgery (~09/2024) Hx of dilation and curettage History of myomectomy Hx of tonsillectomy Family History Family History (Updated 06/02/25 @ 22:59 by Karina Renner RN) Mother Family history of osteoarthritis Family history of heart disease in male family member before age 55 Patient's mother is Family history of coronary artery disease Family history of congestive heart failure Hypertension Thyroid disorder Amputation below knee Father Depression Thyroid disorder Cerebrovascular accident, Onset Age: 50 Sibling Family history of malignant neoplasm of kidney Family history of renal cell carcinoma Depression Patient's brother is Hypertension Lung cancer Sibling On total parenteral nutrition (TPN) Status post partial removal of lung Social History Social History Smoking status: Former smoker Tobacco type: cigarettes Smoking end date: 08/25/91 Alcohol intake: current Drinks per week: 1 Substance use: never Substance use type: does not use Do You Feel Safe in your Home?: Yes Lack of Transportation: No Lack of Food: Never True Current Housing: I Have Housing Concerned About Future Housing: No Difficulty Paying Gas/Electric Bills: No Difficulty Paying for Meds: No Currently Unemployed: No Education: Master's Degree or Higher Difficulty w/ Childcare or Family Care: No Living arrangements: with family Occupation/Education: retired Gender identity (if verbalized by the patient): Female Spiritual care concerns: No Agree to blood products: Yes Anes - Eval Final PreProcedure Day of Procedure 06/03/25 14:45 Patient weight: super morbidly obese Heart: regular rate and rhythm Lungs: clear to auscultation Airway: Mallampati scale class II Neurological: alert and oriented Last oral intake: >/= 8 hours ASA classification: III Emergent: no Anesthetic plan: proceed Anesthesia type and monitoring: general LMA and standard monitoring Results Review: All pre-operative results and documents have been reviewed as part of the pre-operative evaluation. Informed Consent: The patient's anesthetic plan and its attendant risks and benefits were discussed with the patient/family/POA. Questions were solicited and answers provided to the satisfaction of the patient/family/POA.
[2025-06-03] MEDS: LACTATED RINGERS 1,000 ML 30 ML IV CONT (14:59)
[2025-06-03] MEDS: LIDOCAINE 2% GEL UROJET 10 ML PKG MUCOUS MEM (15:37)
--- NOTE | 2025-06-03 15:47 | P.OP_ITS ---
Procedure Note - Detailed Date of Procedure 06/03/25 Pre-op Diagnosis Left ureteral stone, urinary tract infection Post-op Diagnosis Same Procedure Performed Cystoscopy left retrograde pyelography, left ureteral stent placement Surgeon Tomas Vlilatoro MD Anesthesia General Description of Procedure The patient was brought to the operative suite where she was prepped and draped in a routine sterile fashion while in the dorsal lithotomy position. A 19 F rigid cystoscope was placed in her bladder and the bladder was circumferentially inspected. The bladder neck and urethra were endoscopically normal. The bladder mucosa was without hyperemia. There was no intravesical foreign body or neoplasm. There was a single orthotopic ureteral orifice bilaterally. I advanced .035 glidewire into the left renal pelvis under fluoroscopy. A [place] catheter was used to perform left retrograde pyelogram ensure appropriate placement of her left ureteral stent. A 4.8F variable length ureteral stent was positioned with the proximal coil in the renal pelvis and the distal coil in the bladder. Scopes and wires were removed after emptying the patient's bladder. Drains Yes Packing No Pathology None sent Complications No immediate complications
[2025-06-03] MEDS: fentaNYL CITRATE INJ (*CRX) 100 MCG/2 ML VIAL 25 MCG IV PUSH ×2 (16:20→16:25)
--- NOTE | 2025-06-03 17:34 | PC.NURSE ---
pt returned from surgery
[2025-06-03] MEDS: MORPHINE SULFATE (*CRX) 4 MG/ML INJ 2 MG IV PUSH (19:28)
[2025-06-03] MEDS: ROSUVASTATIN 20 MG TABLET 40 MG PO (21:26)
[2025-06-03] MEDS: CHOLECALCIFEROL (VITAMIN D3) 25 MCG (1,000 UNITS) TABLET 50 MCG PO (21:26)
[2025-06-03] MEDS: CITALOPRAM HYDROBROMIDE 20 MG TABLET PO (21:26)
[2025-06-03] MEDS: METOPROLOL TARTRATE 25 MG TABLET PO (21:26)
[2025-06-03] MEDS: MORPHINE SULFATE (*CRX) 4 MG/ML INJ IV PUSH (23:13)
[2025-06-03] MEDS: TAMSULOSIN HCL 0.4 MG CAPSULE PO (23:13)
[2025-06-04] MEDS: KETOROLAC 15 MG/ML VIAL (*BKC) IV PUSH ×4 (00:12→18:04)
[2025-06-04] MEDS: SODIUM CHLORIDE 0.9% IV 1,000 ML 125 ML IV CONT ×3 (00:16→18:05)
[2025-06-04 06:07] VITALS: BP 152/82; PULSE 63; RESP 14; TEMP 36.5; O2SAT 95
[2025-06-04] MEDS: MORPHINE SULFATE (*CRX) 4 MG/ML INJ 2 MG IV PUSH ×2 (06:08→10:30)
[2025-06-04] MEDS: LEVOTHYROXINE SODIUM 150 MCG TABLET PO (06:08)
[2025-06-04] MEDS: METOPROLOL TARTRATE 25 MG TABLET PO ×2 (08:54→21:51)
[2025-06-04] MEDS: TAMSULOSIN HCL 0.4 MG CAPSULE PO (08:54)
--- NOTE | 2025-06-04 12:20 | PM.IMPN ---
Progress Note: A&P Assessment and Plan (1) Ureterolithiasis: Code(s): N20.1 - Calculus of ureter Status: Acute Assessment and Plan: CT abd/pelvis: 1. There is a 1.3 cm calcification in the proximal left ureter causing moderate left-sided hydronephrosis. 2. Small hiatal hernia. 3. Uterus is heterogeneous. There is a 1 cm calcification in the uterus possibly a calcified uterine fibroid. Small amount of nonspecific fluid in the endometrial cavity. Consider a pelvic ultrasound for further assessment. 4. There is a 3.1 cm mass abutting the anterior fundus of the uterus possibly a subserosal fibroid. Other etiologies are possible. A pelvic ultrasound is recommended to exclude a pelvic mass. NPO, SCDs for DVT prophylaxis Continue with saline at 125 mL/hour P.r.n. pain control Urology consult Cystoscopy with left ureteral stent placement today tentatively at 3:00 p.m. 06/04 - Cystoscopy left retrograde pyelography, left ureteral stent placement with dr Villatoro on 06/03. tolerated proceure well with no immediate complications. toradol for pain (2) Hydronephrosis: Qualifiers: Hydronephrosis type: with ureteral calculous obstruction Qualified Code(s): N13.2 - Hydronephrosis with renal and ureteral calculous obstruction Code(s): N13.30 - Unspecified hydronephrosis Status: Acute Assessment and Plan: See above (3) Abnormal urinalysis: Code(s): R82.90 - Unspecified abnormal findings in urine Status: Acute Assessment and Plan: UA: 2+ leukocyte esterase, 6-10 RBC, 51-100 WBC, many squamous epithelial cells, 2+ bacteria UC obtained on 06/03 started on ceftriaxone 06/04- continue iv antibiotics (4) Uterine mass: Code(s): N85.8 - Other specified noninflammatory disorders of uterus Status: Acute Assessment and Plan: Abdomen/pelvis CT: There is a 3.1 cm mass abutting the anterior fundus of the uterus possibly a subserosal fibroid. Other etiologies are possible. A pelvic ultrasound is recommended to exclude a pelvic mass. Transvaginal ultrasound ordered to rule out uterine mass, pending 06/04- IMPRESSION: 1. Limited study. Endometrial stripe was not visualized. 2. Ovaries are not visualized. 3. No free fluid in the pelvis. Plan 75-year-old female with PMH hypothyroidism, essential hypertension, hyperlipidemia, depression, presents to [facility] on 06/02/2025 complaining of severe left flank pain that moved around the left lower abdomen that has been going on and off since February above became worse on day of admission and woke her up from sleep. She has had some nausea vomiting as well. Denies any dysuria, increased urinary frequency, shortness of breath, chest pain, fevers, chills. WBC 12.7, urinalysis grossly contaminated with wbc's, bacteria, leukocyte esterase. CT abdomen and pelvis with contrast demonstrating 1.3 cm calcification in the proximal left ureter causing moderate left-sided hydronephrosis, small hiatal hernia, with a heterogeneous uterus and a 1 cm calcification, 3.1 cm mass abutting the anterior fundus of uterus. Urology consulted from the ER, agreed to consult on this patient to be admitted. She was given ceftriaxone 2 g IV x1, Zofran 4 mg IV x1, morphine 4 mg IV x1. The patient was resting comfortably thereafter. ----- NPO. SCDs. Urology consultation. Normal saline at 125 cc/hour. 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 Pain control p.r.n.. Can continue ceftriaxone for now. It does not appear urine culture was reflex, a place in order to obtain that so we can follow-up on any culture and sensitivities. Trend leukocytosis. Patient is afebrile. She appears nontoxic when resting comfortably after analgesia. Transvaginal ultrasound ordered. ----- Patient wishes to be full code. Time Spent With Patient Time with patient: 25 - 35 minutes Subjective Date/time seen: 06/04/25 12:20 Interval history: 75-year-old female with PMH hypothyroidism, essential hypertension, hyperlipidemia, depression, presents to [facility] on 06/02/2025 complaining of severe left flank pain that moved around the left lower abdomen that has been going on and off since February above became worse on day of admission and woke her up from sleep. 06/03/2025 Patient sitting comfortably in bed at time examination. Neurology consulted, plan for left ureteral stent placement today with cystoscopy at 3:00 p.m.. Urine culture to be obtained for abnormal urinalysis, likely UTI. Patient otherwise doing okay, denies any abdominal pain, back pain, shortness of breath or chest pain. 06/04 pt is seen and examined. she is still requiring iv pain meds. urology following Review of Systems Review of Systems: All systems reviewed & are unremarkable except as noted in HPI and below (Subject) Exam Const: General: comfortable and no acute distress HENMT: Mouth: Yes moist mucous membranes Neck: Neck: supple Resp: Effort & Inspection: normal respiratory effort Auscultation: clear to auscultation bilaterally Cardio: Rate: regular rate Rhythm: regular rhythm Skin: General skin exam: normal color and no rashes or lesions noted Neuro: Speech: normal speech Extrem: General: normal to inspection Psych: Mental Status: mental status grossly normal Affect: normal affect Objective Data Vital Signs Vital Signs: Vital Signs - 24 hr 06/03/25 13:45 06/03/25 15:50 06/03/25 16:05 Temperature 97.5 F L 97.2 F L Pulse Rate 64 70 74 Respiratory Rate 14 16 Blood Pressure 150/67 H 126/75 161/86 H Pulse Oximetry 94 100 100 Oxygen Delivery Room Air Simple Face Mask Simple Face Mask Oxygen Flow Rate 6 6 06/03/25 16:20 06/03/25 16:35 06/03/25 16:50 Temperature Pulse Rate 64 58 L 64 Respiratory Rate 14 12 14 Blood Pressure 180/70 H 155/77 H 167/89 H Pulse Oximetry 96 98 99 Oxygen Delivery Room Air Nasal Cannula Nasal Cannula Oxygen Flow Rate 3 2 06/03/25 17:05 06/03/25 17:34 06/03/25 18:24 Temperature 97.7 F Pulse Rate 64 62 83 Respiratory Rate 14 18 Blood Pressure 167/91 H 185/65 H 159/69 H Pulse Oximetry 97 93 93 Oxygen Delivery Nasal Cannula Oxygen Flow Rate 2 06/03/25 21:21 06/03/25 21:22 06/03/25 21:26 Temperature 98.2 F Pulse Rate 71 71 Respiratory Rate 16 Blood Pressure 158/72 H Pulse Oximetry 92 Oxygen Delivery Room Air Oxygen Flow Rate 06/04/25 06:07 06/04/25 08:00 Temperature 97.7 F Pulse Rate 63 Respiratory Rate 14 Blood Pressure 152/82 H Pulse Oximetry 95 Oxygen Delivery Room Air Oxygen Flow Rate Intake/Output Intake/Output: Intake & Output 06/01/25 06/02/25 06/03/25 06/04/25 23:59 23:59 23:59 23:59 Intake Total 100 3357.1 1979.2 Output Total 200 100 Balance 100 3157.1 1879.2 Meds/Results Medications: Active Medications Generic Name Dose Route Start Last Admin Trade Name Freq PRN Reason Stop Dose Admin Albuterol 2 puff 06/03/25 01:11 Albuterol Sulfate (*Sp) Aerosol 1 Puff INHALATION Q4HRT PRN Shortness Of Breath Or Wheezing Citalopram Hydrobromide 20 mg 06/03/25 21:00 06/03/25 21:26 Citalopram Hydrobromide 20 Mg Tablet PO 20 mg HS LEONA Administration Doxepin HCl 25 mg 06/03/25 01:11 Doxepin Hcl 25 Mg Capsule PO HS PRN Sleep Fentanyl Citrate 25 mcg 06/03/25 14:52 06/03/25 16:25 Fentanyl Citrate Inj (*Crx) 100 Mcg/2 Ml Vial IV PUSH 25 mcg Q2M PRN Administration Pain Sodium Chloride 1,000 mls @ 125 mls/hr 06/02/25 18:50 06/04/25 00:16 Normal Saline Iv IV CONT 125 mls/hr .Q8H LEONA Administration Ketorolac Tromethamine 15 mg 06/02/25 19:00 06/04/25 12:07 Ketorolac 15 Mg/Ml Vial (*Bkc) IV PUSH 15 mg Q6H LEONA Administration Levothyroxine Sodium 150 mcg 06/03/25 06:30 06/04/25 06:08 Levothyroxine Sodium 150 Mcg Tablet PO 150 mcg DAILY@0630 LEONA Administration Metoprolol Tartrate 25 mg 06/03/25 09:00 06/04/25 08:54 Metoprolol Tartrate 25 Mg Tablet PO 25 mg Q12HR LEONA Administration Morphine Sulfate 2 mg 06/02/25 18:49 06/04/25 10:30 Morphine Sulfate (*Crx) 4 Mg/Ml Inj IV PUSH 2 mg Q4H PRN Administration Pain Rated 7-10 Ondansetron HCl 4 mg 06/03/25 14:52 Ondansetron Inj 4 Mg/2 Ml Vial IV PUSH ONCE PRN Nausea Oxybutynin Chloride 5 mg 06/03/25 22:45 06/04/25 12:07 Oxybutynin Chloride 5 Mg Tablet PO 5 mg TID LEONA Administration Rosuvastatin Calcium 40 mg 06/03/25 21:00 06/03/25 21:26 Rosuvastatin 20 Mg Tablet PO 40 mg HS LEONA Administration Tamsulosin HCl 0.4 mg 06/04/25 09:00 06/04/25 08:54 Tamsulosin Hcl 0.4 Mg Capsule PO 0.4 mg QAM LEONA Administration Vitamin D 50 mcg 06/03/25 21:00 06/03/25 21:26 Cholecalciferol (Vitamin D3) 25 Mcg (1,000 Units) Tablet PO 50 mcg HS LEONA Administration Radiology Results: ITS Impressions Abdomen/Pelvis CT 06/02/25 16:35 IMPRESSION: 1. There is a 1.3 cm calcification in the proximal left ureter causing moderate left-sided hydronephrosis. 2. Small hiatal hernia. 3. Uterus is heterogeneous. There is a 1 cm calcification in the uterus possibly a calcified uterine fibroid. Small amount of nonspecific fluid in the endometrial cavity. Consider a pelvic ultrasound for further assessment. 4. There is a 3.1 cm mass abutting the anterior fundus of the uterus possibly a subserosal fibroid. Other etiologies are possible. A pelvic ultrasound is recommended to exclude a pelvic mass. Abdomen X-Ray 06/02/25 17:36 IMPRESSION: 1. Moderate left-sided hydronephrosis identified by retained contrast in the left pelvicalyceal system and proximal left ureter. 2. Contrast is noted within the bladder. 3. Nonspecific abdomen with a moderate amount of stool. If symptoms persist or worsen, consider a short-term follow-up study or additional imaging for further assessment. Pelvis Ultrasound 06/03/25 11:19 IMPRESSION: 1. Limited study. Endometrial stripe was not visualized. 2. Ovaries are not visualized. 3. No free fluid in the pelvis. If symptoms persist or worsen, consider a short-term follow-up study or additional imaging for further assessment. Ureter Stent X-Ray 06/03/25 17:58 IMPRESSION: 1. Fluoroscopy utilized during urologic procedure including placement of a left intraureteral stent. See procedure note for further detail.
[2025-06-04 13:30] VITALS: BP 171/72; PULSE 54; RESP 16; TEMP 36.4; O2SAT 96
--- NOTE | 2025-06-04 14:31 | P.PNUR_ITS ---
Progress Note: A&P Assessment and Plan (1) Ureterolithiasis: Code(s): N20.1 - Calculus of ureter Status: Acute (2) Hydronephrosis: Qualifiers: Hydronephrosis type: with ureteral calculous obstruction Qualified Code(s): N13.2 - Hydronephrosis with renal and ureteral calculous obstruction Code(s): N13.30 - Unspecified hydronephrosis Status: Acute (3) Urinary tract infection: Code(s): N39.0 - Urinary tract infection, site not specified Status: Acute Assessment and Plan: * s/p 06/03/2025 Cystoscopy with left ureteral stent placement * Remains admitted while awaiting culture date * No further planned inpatient urologic interventions at this time * Definitive stone management with either ureteroscopy / laser lithotripsy or ESWL [id number], once infection has been thoroughly treated. This is being arranged Subjective Subjective Date/Time Seen: 06/04/25 14:31 Interval history: Patient is POD 1 from left ureteral stent placement with Dr. Villatoro -- having some flank pain, hematuria, and bladder spasms WBC 10 from 12 Urine culture from 06/03/2025 pending Review of Systems Review of Systems: All systems reviewed & are unremarkable except as noted in HPI and below Exam Const: General: no acute distress Resp: Effort & Inspection: normal respiratory effort GI: Inspection: non-distended GI Palp: No abdominal tenderness and No Guarding due to palpation present (GI) Auscultation: normal bowel sounds Objective Data Vital Signs Vital Signs: Vital Signs - 24 hr 06/03/25 15:50 06/03/25 16:05 06/03/25 16:20 Temperature 36.2 C L Pulse Rate 70 74 64 Respiratory Rate 14 16 14 Blood Pressure 126/75 161/86 H 180/70 H Pulse Oximetry 100 100 96 Oxygen Delivery Simple Face Mask Simple Face Mask Room Air Oxygen Flow Rate 6 6 06/03/25 16:35 06/03/25 16:50 06/03/25 17:05 Temperature Pulse Rate 58 L 64 64 Respiratory Rate 12 14 14 Blood Pressure 155/77 H 167/89 H 167/91 H Pulse Oximetry 98 99 97 Oxygen Delivery Nasal Cannula Nasal Cannula Nasal Cannula Oxygen Flow Rate 3 2 2 06/03/25 17:34 06/03/25 18:24 06/03/25 21:21 Temperature 36.5 C 36.8 C Pulse Rate 62 83 71 Respiratory Rate 18 16 Blood Pressure 185/65 H 159/69 H 158/72 H Pulse Oximetry 93 93 92 Oxygen Delivery Oxygen Flow Rate 06/03/25 21:22 06/03/25 21:26 06/04/25 06:07 Temperature 36.5 C Pulse Rate 71 63 Respiratory Rate 14 Blood Pressure 152/82 H Pulse Oximetry 95 Oxygen Delivery Room Air Oxygen Flow Rate 06/04/25 08:00 06/04/25 13:30 Temperature 36.4 C Pulse Rate 54 L Respiratory Rate 16 Blood Pressure 171/72 H Pulse Oximetry 96 Oxygen Delivery Room Air Oxygen Flow Rate Intake/Output Intake/Output: Intake & Output 06/01/25 06/02/25 06/03/25 06/04/25 23:59 23:59 23:59 23:59 Intake Total 100 3357.1 3219.2 Output Total 200 100 Balance 100 3157.1 3119.2 Meds/Results Medications: Active Medications Generic Name Dose Route Start Last Admin Trade Name Freq PRN Reason Stop Dose Admin Albuterol 2 puff 06/03/25 01:11 Albuterol Sulfate (*Sp) Aerosol 1 Puff INHALATION Q4HRT PRN Shortness Of Breath Or Wheezing Citalopram Hydrobromide 20 mg 06/03/25 21:00 06/03/25 21:26 Citalopram Hydrobromide 20 Mg Tablet PO 20 mg HS LEONA Administration Doxepin HCl 25 mg 06/03/25 01:11 Doxepin Hcl 25 Mg Capsule PO HS PRN Sleep Fentanyl Citrate 25 mcg 06/03/25 14:52 06/03/25 16:25 Fentanyl Citrate Inj (*Crx) 100 Mcg/2 Ml Vial IV PUSH 25 mcg Q2M PRN Administration Pain Sodium Chloride 1,000 mls @ 125 mls/hr 06/02/25 18:50 06/04/25 09:35 Normal Saline Iv IV CONT 125 mls/hr .Q8H LEONA Administration Ketorolac Tromethamine 15 mg 06/02/25 19:00 06/04/25 12:07 Ketorolac 15 Mg/Ml Vial (*Bkc) IV PUSH 15 mg Q6H LEONA Administration Levothyroxine Sodium 150 mcg 06/03/25 06:30 06/04/25 06:08 Levothyroxine Sodium 150 Mcg Tablet PO 150 mcg DAILY@0630 LEONA Administration Metoprolol Tartrate 25 mg 06/03/25 09:00 06/04/25 08:54 Metoprolol Tartrate 25 Mg Tablet PO 25 mg Q12HR LEONA Administration Morphine Sulfate 2 mg 06/02/25 18:49 06/04/25 10:30 Morphine Sulfate (*Crx) 4 Mg/Ml Inj IV PUSH 2 mg Q4H PRN Administration Pain Rated 7-10 Ondansetron HCl 4 mg 06/03/25 14:52 Ondansetron Inj 4 Mg/2 Ml Vial IV PUSH ONCE PRN Nausea Oxybutynin Chloride 5 mg 06/03/25 22:45 06/04/25 12:07 Oxybutynin Chloride 5 Mg Tablet PO 5 mg TID LEONA Administration Rosuvastatin Calcium 40 mg 06/03/25 21:00 06/03/25 21:26 Rosuvastatin 20 Mg Tablet PO 40 mg HS LEONA Administration Tamsulosin HCl 0.4 mg 06/04/25 09:00 06/04/25 08:54 Tamsulosin Hcl 0.4 Mg Capsule PO 0.4 mg QAM LEONA Administration Vitamin D 50 mcg 06/03/25 21:00 06/03/25 21:26 Cholecalciferol (Vitamin D3) 25 Mcg (1,000 Units) Tablet PO 50 mcg HS [facility] Administration Radiology Results: ITS Impressions Abdomen/Pelvis CT 06/02/25 16:35 IMPRESSION: 1. There is a 1.3 cm calcification in the proximal left ureter causing moderate left-sided hydronephrosis. 2. Small hiatal hernia. 3. Uterus is heterogeneous. There is a 1 cm calcification in the uterus possibly a calcified uterine fibroid. Small amount of nonspecific fluid in the endometrial cavity. Consider a pelvic ultrasound for further assessment. 4. There is a 3.1 cm mass abutting the anterior fundus of the uterus possibly a subserosal fibroid. Other etiologies are possible. A pelvic ultrasound is recommended to exclude a pelvic mass. Abdomen X-Ray 06/02/25 17:36 IMPRESSION: 1. Moderate left-sided hydronephrosis identified by retained contrast in the left pelvicalyceal system and proximal left ureter. 2. Contrast is noted within the bladder. 3. Nonspecific abdomen with a moderate amount of stool. If symptoms persist or worsen, consider a short-term follow-up study or additional imaging for further assessment. Pelvis Ultrasound 06/03/25 11:19 IMPRESSION: 1. Limited study. Endometrial stripe was not visualized. 2. Ovaries are not visualized. 3. No free fluid in the pelvis. If symptoms persist or worsen, consider a short-term follow-up study or additional imaging for further assessment. Ureter Stent X-Ray 06/03/25 17:58 IMPRESSION: 1. Fluoroscopy utilized during urologic procedure including placement of a left intraureteral stent. See procedure note for further detail.
[2025-06-04 21:10] VITALS: O2SAT 95
[2025-06-04] MEDS: CHOLECALCIFEROL (VITAMIN D3) 25 MCG (1,000 UNITS) TABLET 50 MCG PO (21:50)
[2025-06-04] MEDS: CITALOPRAM HYDROBROMIDE 20 MG TABLET PO (21:50)
[2025-06-04] MEDS: DOCUSATE SODIUM 100 MG CAPSULE PO (21:50)
[2025-06-04 21:51] VITALS: PULSE 81
[2025-06-04] MEDS: ROSUVASTATIN 20 MG TABLET 40 MG PO (21:51)
[2025-06-04 22:00] VITALS: BP 148/90; PULSE 61; RESP 16; TEMP 36.9; O2SAT 92
[2025-06-05] MEDS: KETOROLAC 15 MG/ML VIAL (*BKC) IV PUSH ×2 (00:37→06:20)
[2025-06-05] MEDS: SODIUM CHLORIDE 0.9% IV 1,000 ML 125 ML IV CONT (00:38)
[2025-06-05 06:12] VITALS: BP 164/99; PULSE 60; RESP 16; TEMP 36.5; O2SAT 93
[2025-06-05] MEDS: LEVOTHYROXINE SODIUM 150 MCG TABLET PO (06:20)
[2025-06-05 08:27] VITALS: BP 157/79; PULSE 68; RESP 18; TEMP 36.7; O2SAT 98
[2025-06-05 08:30] VITALS: PULSE 68
[2025-06-05] MEDS: METOPROLOL TARTRATE 25 MG TABLET PO (08:30)
[2025-06-05 08:31] VITALS: PULSE 68; RESP 18; O2SAT 98
[2025-06-05] MEDS: TAMSULOSIN HCL 0.4 MG CAPSULE PO (08:31)
--- NOTE | 2025-06-05 12:35 | P.DS_ITS ---
DS: Admitting Diagnosis Discharge Date 06/05 Admitting Diagnosis flank pain DS: Discharge Diagnosis Discharge Diagnosis (1) Ureterolithiasis: Code(s): N20.1 - Calculus of ureter Status: Acute (2) Hydronephrosis: Qualifiers: Hydronephrosis type: with ureteral calculous obstruction Qualified Code(s): N13.2 - Hydronephrosis with renal and ureteral calculous obstruction Code(s): N13.30 - Unspecified hydronephrosis Status: Acute (3) Abnormal urinalysis: Code(s): R82.90 - Unspecified abnormal findings in urine Status: Acute (4) Uterine mass: Code(s): N85.8 - Other specified noninflammatory disorders of uterus Status: Acute DS: Summary Hospital Course Hospital Course: 75-year-old female with PMH hypothyroidism, essential hypertension, hyperlipidemia, depression, presents to [facility] on 06/02/2025 complaining of severe left flank pain that moved around the left lower abdomen that has been going on and off since February above became worse on day of admission and woke her up from sleep. She has had some nausea vomiting as well. Denies any dysuria, increased urinary frequency, shortness of breath, chest pain, fevers, chills. WBC 12.7, urinalysis grossly contaminated with wbc's, bacteria, leukocyte esterase. CT abdomen and pelvis with contrast demonstrating 1.3 cm ca lcification in the proximal left ureter causing moderate left-sided hydronephrosis, small hiatal hernia, with a heterogeneous uterus and a 1 cm calcification, 3.1 cm mass abutting the anterior fundus of uterus. Urology consulted from the ER, agreed to consult on this patient to be admitted. She was given ceftriaxone 2 g IV x1, Zofran 4 mg IV x1, morphine 4 mg IV x1. The patient was resting comfortably thereafter. Normal saline at 125 cc/hour. 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 Pain control p.r.n.. Was on ceftriaxone for UTI but ua was unremarkable so stopped. D/c meds/antibiotics per urology recommendations. On 06/03/25, pt had Cystoscopy left retrograde pyelography, left ureteral stent placement with DR Villatoro. 06/04- she continued to have IV fluids and iV pain meds. Today, she feels a lot better. OK for discharge from urology, DR Vazquez. She needs to call friday for a f/u nam. NOted that pt was started on oxybutyrin and flomax-will sent rx to take for now until directed otherwise per urology. Status at Discharge Functional status at discharge: independent ambulation Overall status at discharge: patient is progressing back to baseline Time Spent with Patient Time attestation: Total time spent providing and/or coordinating discharge services: Time spent: Greater than 30 minutes Exam Const: General: comfortable and no acute distress HENMT: Mouth: Yes moist mucous membranes Neck: Neck: supple Resp: Effort & Inspection: normal respiratory effort Auscultation: clear to auscultation bilaterally Cardio: Rate: regular rate Rhythm: regular rhythm Skin: General skin exam: normal color and no rashes or lesions noted Neuro: Speech: normal speech Extrem: General: normal to inspection Psych: Mental Status: mental status grossly normal Affect: normal affect Discharge Plan Discharge Attending physician on discharge: Venus Lane Consulting providers: Marcelino Quigley; Bharat Link Discharging Clinician: Georgina Bennett Patient Disposition: Home Activity: december shower Diet: heart healthy Discharge Instructions: Please call friday to urology office to schedule an nam. You were started on oxybutyrin and flomax-will sent a script to take for now until directed otherwise per urology. Patient Instructions: Antibiotic Form Patient Language: Malaysian Stand Alone Forms: General Discharge Information Follow-up/Referrals: Jaida Perdomo NP [Primary Care Provider, Family Practice] - 2 Weeks Tomas Villatoro MD [Physician, Urology] - 1 Week Referral Note: please call friday, 06/06 to schedule an nam Discharge Medications: New tamsulosin 0.4 mg Capsule 0.4 mg PO QAM Qty: 30 0RF oxybutynin chloride 5 mg Tablet 5 mg PO TID Qty: 20 0RF Continued rosuvastatin 40 mg tablet 40 mg PO HS turmeric root extract 500 mg capsule 500 mg PO 3XW Patient Comments: takes Sun, Tues, Th; taken at night albuterol sulfate 90 mcg/actuation HFA aerosol inhaler 2 puff inhalation Q4H PRN (Reason: shortness of breath or wheezing) Qty: 8.5 0RF amlodipine-benazepril 5-40 mg capsule 1 cap PO DAILY doxepin 25 mg capsule 25 mg PO HS PRN (Reason: sleep) Rx Instructions: Take 1 capsule 30 minutes prior to bedtime citalopram 20 mg tablet 20 mg PO HS levothyroxine 150 mcg tablet 150 mcg PO HS cholecalciferol (vitamin D3) 50 mcg (2,000 unit) capsule 50 mcg PO HS metoprolol tartrate 25 mg tablet 25 mg PO BID Qty: 180 1RF meloxicam 7.5 mg tablet 7.5 mg PO BID Qty: 180 1RF Date of admission: 06/02/25 17:15 Primary Care Provider: Jaida Perdomo Admitting Provider: Enzo Stubbs Oca Attending physician on admission: Enzo Stubbs Oca Condition: Stable Hospitalist MIPS Heart Failure (Exclusion) Patient has history of Heart Transplant or Left Ventricular Assistive Device?: No IF YES, STOP HERE Heart Failure (Qualifier) Patient has current or prior documentation of LVEF less than or equal to 40%, or mod/servere depressed LVSF?: No IF NO, STOP HERE
== END 2025-06-05 13:20 | disposition home or self-care (01) | DRG 661 ==
LOC: ANHED 18:39 → ANH2MED 19:15
PROVIDERS: Emergency Medicine; General Practice; Urology; Admitting Provider Student in an Organized Health Care Education/Training Program; Emergency Provider Student in an Organized Health Care Education/Training Program; PCP Nurse Practitioner Family; Visit Provider Nurse Practitioner
PROC: 0T778DZ Dilation of Left Ureter with Intraluminal Device, Via Natural or Artificial Opening Endoscopic (ICD-10-PCS; CPT 52352; principal; 2025-06-03 15:00)
DX: N13.2 Hydronephrosis with renal and ureteral calculous obstruction (principal); I10 Essential (primary) hypertension; E03.9 Hypothyroidism, unspecified; E78.5 Hyperlipidemia, unspecified; D72.829 Elevated white blood cell count, unspecified; K44.9 Diaphragmatic hernia without obstruction or gangrene; N85.8 Other specified noninflammatory disorders of uterus; R11.2 Nausea with vomiting, unspecified; R73.03 Prediabetes; R82.90 Unspecified abnormal findings in urine; M19.012 Primary osteoarthritis, left shoulder; F32.A Depression, unspecified; F10.90 Alcohol use, unspecified, uncomplicated; Z87.891 Personal history of nicotine dependence
CPT/HCPCS: 36415; 74018; 74177; 76856; 80048; 80053; 81001; 83690; 83735; 85025; 87086; 96374; 99285; A9270; C1769; C2617; J0696; J1100; J1885; J2270; J2405; J2704; J3010; J7030; J7120; Q9967

== ENCOUNTER 2025-06-24 09:14 | Outpatient (CLI) | payer MEDICARE, SELFPAY ==
--- NOTE | 2025-06-24 09:30 | ECG_ITS ---
Test Date: 2025-06-24 09:38:07 Measurements Intervals Perry Rate: 57 P: 68 KS: 229 QRS: -7 QRSD: 90 T: 19 QT: 409 QTc: 400 Interpretive Statements SINUS BRADYCARDIA WITH FIRST DEGREE AV BLOCK LOW QRS VOLTAGE IN PRECORDIAL LEADS CONSIDER ANTERIOR INFARCT, AGE INDETERMINATE BASELINE ARTIFACT- I, II, III, AVR, AVL, AVF, V4-V6 ABNORMAL ECG No previous ECG available for comparison Electronically Signed On 06-24-2025 10:53:06 CDT by Rishi Alexander D.O.
--- OUTSIDE RECORDS SUMMARY | 2025-06-24 09:45 | XMS_ITS | Clinical Summary ---
Author Organization [facility] [place] [address] Address [address] [place] [address] Care Team Providers Care Academic Support Specialist Name Role Phone Deyanira Olivarez MD Unavailable [phone] Jaida Perdomo NP Primary Care Provider [phone] Allergies Active Allergy Reactions Criticality Noted Date Comments Sulfa Hives Medium 08/12/2023 Medications metoprolol (LOPRESSOR) 25 mg tablet Take 1 tablet (25 mg total) by mouth 2 (two) times a day 9 Active cetirizine (ZyrTEC) 10 mg tablet Take 1 tablet (10 mg total) by mouth daily Active doxepin (SINEquan) 25 mg capsule TAKE 1 CAPSULE BY MOUTH ONCE DAILY NEEDED FOR SLEEP 30 MINUTES PRIOR TO BEDTIME. 4 Active citalopram (CeleXA) 20 mg tablet Take 1 tablet (20 mg total) by mouth nightly Active meloxicam (MOBIC) 7.5 mg tablet Take 1 tablet (7.5 mg total) by mouth every morning Active levothyroxine (SYNTHROID) 150 mcg tablet Take 1 tablet (150 mcg total) by mouth nightly Active ergocalciferol (VITAMIN D) 50,000 unit capsule Take 1 capsule (50,000 Units total) by mouth once a week Takes on Friday nights Active rosuvastatin (CRESTOR) 40 mg tabletIndications:M ixed hyperlipidemia Take 1 tablet (40 mg total) by mouth daily 90 tablet 3 5 04/28/20 26 Active amLODIPine-benazepr iL (LOTREL) 5-40 mg per capsuleIndications: Essential hypertension Take 1 capsule by mouth once daily 30 capsule 6 5 Active Active Problems Problem Noted Date Diagnosed Date MARIETTA (obstructive sleep apnea) 04/28/2025 S/P reverse total shoulder arthroplasty, left Rotator [...] 50.0-59.9, adult 12/2018 Preoperative cardiovascular examination 09/29/19 19 Encounters Date Type Department Care Team Description 04/28/2025 11:45 AM CDT Office Visit [facility] Cardiology at [address] [place] [address] Jameel Johansen MD Mixed hyperlipidemia (Primary Dx); Essential hypertension; Morbid obesity with BMI of 50.0-59.9, adult (HCC); MARIETTA (obstructive sleep apnea); Hypothyroidism, unspecified type 03/28/[address] [facility]iology [address] [place] [address] Jameel Johansen MD from Last 3 Months Surgical History Surgery Date Site/Laterality Comments DILATION AND CURETTAGE OF UTERUS JOINT REPLACEMENT Medical History Medical History Date Comments Anxiety Postmenopausal bleeding Hypertension HLD (hyperlipidemia) Obesity Thyroid disease JIM (dyspnea on exertion) Arthritis ? Family History Medical History Relation Name Comments Kidney disease Brother 1 Heart attack Brother 2 Cerebral aneurysm Father Heart failure Mother PAD, status post amputation Mother Coronary artery disease Sister Coronary stents Sister Relation Name Status Comments Brother 1 (Age 55) Kidney dis ease Brother 2 (Age 45) [place]/sudden cardiac Father (Age 5 0) Mother Sister [...] on file Legal Sex Female 1:52 PM SUPPORT ASSISTANT Gender Identity Not on file Sexual Orientation Not on file Obstetrics History Last Filed Vital Signs Vital Sign Reading Time Taken Comments Blood Pressure 130/82 04/28/2025 11:56 AM CDT Pulse 59 04/28/2025 11:56 AM CDT Temperature 36.6 C (97.8 F) 09/29/2024 8:35 AM SUPPORT ASSISTANT Respiratory Rate 16 11/23/2024 9:58 AM CDT Oxygen Saturation 97% 04/28/2025 11:56 AM CDT Inhaled Oxygen Concentration - - Weight 132.5 kg (292 lb) 04/28/2025 11:56 AM CDT Height 157.5 cm (5' 2) 04/28/2025 11:56 AM CDT Body Mass Index 53.41 04/28/2025 11:56 AM CDT Plan of Treatment Health Maintenance Due Date Last Done Comments Depression Screening 1950 Hepatitis C Screening 1950 Osteoporosis Screening-Bone Density Scan 1950 DTaP/Tdap/Td Vaccine (1 - Tdap) 1960 Hepatitis B Screening 1967 Zoster Vaccine (1 of 2) 1999 Well Visit 65+ 2014 Pneumococcal vaccine 65+ (2 of 2 - PCV) 06/07/2020 06/07/2019 Covid-19 Vaccine (4 - 2025-2 6 season) 2025 09/24/2021, 03/23/2021, 02/23/2021 Influenza Vaccine (#1) 2025 , 06/14/2021, 06/19/2020, Additional history exists Fall Risk Assessment 09/29/2025 09/29/2024 Breast Cancer Screening-Mammogram Discontinued 07/05/2016, 06/28/2016, 02/03/2015 Medical Devices Implanted Type Area Project Product Manager Device Identifier Shelf Expiration Date Model / Serial / Lot Exactech Reverse Torque Define Shoulder Kit Screw 320-20-00 - [id number] - [id number] Implanted:Qty: 1 on 09/28/2024 by Emir Sebastian MD at [facility] Left: Shoulder Exactech [id number] 07/28/2029 320-20-00 / [id number] / Exactech Equinoxe Lock Reverse Shoulder Glenosphere Screw Bone 320-15-05 - [id number] - [id number] Implanted:Qty: 1 on 09/28/2024 by Emir Sebastian MD at [facility] Left: Shoulder Exactech [id number] 06/22/2029 320-15- / [id number] / Exactech Equinoxe Small Reverse Superior Posterior Augment Shoulder Left 320-35-07 - [id number] - [id number] Implanted:Qty: 1 on 09/28/2024 by Emir Sebastian MD at [facility] Left: Shoulder Exactech [id number] 12/21/2033 320-35-07 / [id number] / Exactech Component 36mm Glenoid Glenosphere Reverse Shoulder 320-31-36 - [id number] - [id number] Implanted:Qty: 1 on 09/28/2024 by Emir Sebastian MD at [facility] Left: Shoulder Exactech [id number] 07/29/2034 320-31-36 / [id number] / Exactech Equinoxe 4.5mm 30mm Kit Compression Lock Cap Reverse Shoulder 320-20-30 - [id number] - [id number] Implanted:Qty: 1 on 09/28/2024 by Emir Sebastian MD at [facility] Left: Shoulder Exactech [id number] 06/09/2029 320-20-30 / [id number] / Exactech Equinoxe 4.5mm 30mm Kit Compression Lock Cap Reverse Shoulder 320-20-30 - [id number] - [id number] Implanted:Qty: 1 on 09/28/2024 by Emir Sebastian MD at [facility] Left: Shoulder Exactech [id number] 01/22/2027 320-20-30 / [id number] / Exactech Equinoxe Od10 Mm L70 Mm Preserve Short Stem Humeral Sterile 300-30-10 - [id number] - [id number] Implanted:Qty: 1 on 09/28/2024 by Emir Sebastian MD at [facility] Left: Shoulder Exactech [id number] 03/18/2034 300-30-10 / [id number] / Exactech Tray Humeral Adapter 0 322-10- - [id number] - [id number] Implanted:Qty: 1 on 09/28/2024 by Emir Sebastian MD at [facility] Left: Shoulder Exactech 08/03/2034 322-10-00 / [id number] / Exactech Liner Humeral 36mm Equinoxe Reverse Shoulder Poly 322-36-00 - [id number] - [id number] Implanted:Qty: 1 on 09/28/2024 by Emir Sebastian MD at [facility] Left: Shoulder Exactech 06/23/2029 322-36-00 / [id number] / Procedures Procedure Name Priority Date/Time Associated Diagnosis Comments POCT LIPID PANEL Routine 04/28/2025 12:0 2 PM CDT Mixed hyperlipidemia from Last 3 Months Results * (ABNORMAL) POCT lipid panel (04/28/2025 12:02 PM CDT) Cholesterol, POC 188 <200 MG/DL HDL, POC 39(A) >=40 mg/dL Triglycerides, POC 113 <=149 mg/dL LDL Cholesterol POC 126 <=129 mg/dL Chol/HDL Ratio, POC 4.8 NONE Non-HDL Cholesterol, POC 149 NONE mg/dL Cholesterol Total, POC 188 30 - 199 mg/dL Capillary blood 04/28/2025 1 2:02 PM CDT Jameel Johansen MD POINT OF CARE TEST ORDERA BLES Final Result from Last 3 Months Insurance [facility] MEDICARE [employer] SENIOR SUPPLEMENT Advance Directives For more information, please contact: [phone] * Full Code (Latest Code Status on File) Date Activated Date Inactivated Comments 09/28/2024 2:29 PM 09/29/2024 8:55 PM Care Teams Academic Support Specialist Relationship Specialty Start Date End Date Jaida Perdomo NP [address] [place] [address] PCP - General Family Medicine 07/21/24 Deyanira Olivarez MD Consulting Physician Cardiology 07/24/23
== END 2025-06-24 09:15 | disposition home or self-care (01) ==
LOC: ANHSURGERY 09:20
PROVIDERS: PCP Nurse Practitioner Family; Visit Provider Urology
DX: R94.31 Abnormal electrocardiogram [ECG] [EKG] (principal); I10 Essential (primary) hypertension
CPT/HCPCS: 93005

== ENCOUNTER 2025-06-30 00:37 | Day surgery (SDC) | payer MEDICARE, SELFPAY ==
--- NOTE | 2025-06-22 06:59 | PM.HPGS ---
History of Present Illness History of Present Illness Consent: Risks, benefits, and alternatives have been discussed and questions answered. Patient agrees to proceed with procedure. Chief complaint: left ureteral stone Narrative: Ayleen Pham is a 75 year old female: Note from admit/procedure 06/03/25: The patient is a 75 year old female who underwent a procedure at [facility]. Note for [facility] Operative Procedure: Patient was admitted [facility] with a 1.3 cm left proximal ureteral stone and urinary tract infection. ?I placed a stent. ?Patient's body habitus will probably preclude a elective ESWL. ?Once the infection is treated ureteroscopy with laser lithotripsy will likely be a better definitive option. Review of Systems Review of Systems: All systems reviewed & are unremarkable except as noted in HPI and below PMFSH Past Medical History Medical History Essential hypertension Chronic edema Acute insomnia Skin yeast infection Cellulitis Osteoarthritis of left shoulder region Left knee pain Prediabetes Depression Essential (primary) hypertension Hyperlipidemia, unspecified Hypothyroidism, unspecified Seasonal allergies Surgical History Surgical History H/O shoulder surgery (~09/2024) Hx of dilation and curettage History of myomectomy Hx of tonsillectomy Family History Family History Mother Family history of osteoarthritis Family history of heart disease in male family member before age 55 Patient's mother is Family history of coronary artery disease Family history of congestive heart failure Hypertension Thyroid disorder Amputation below knee Father Depression Thyroid disorder Cerebrovascular accident, Onset Age: 50 Sibling Family history of malignant neoplasm of kidney Family history of renal cell carcinoma Depression Patient's brother is Hypertension Lung cancer Sibling On total parenteral nutrition (TPN) Status post partial removal of lung Social History Social History Smoking status: Former smoker Tobacco type: cigarettes Smoking end date: 08/25/91 Alcohol intake: current Drinks per week: 1 Substance use: never Substance use type: does not use Do You Feel Safe in your Home?: Yes Lack of Transportation: No Lack of Food: Never True Current Housing: I Have Housing Concerned About Future Housing: No Difficulty Paying Gas/Electric Bills: No Difficulty Paying for Meds: No Currently Unemployed: No Education: Master's Degree or Higher Difficulty w/ Childcare or Family Care: No Living arrangements: with family Occupation/Education: retired Gender identity (if verbalized by the patient): Female Spiritual care concerns: No Agree to blood products: Yes Meds Home Medications and Allergies Home Medications ?Medication ?Instructions ?Recorded ?Confirmed ?Type albuterol sulfate 90 mcg/actuation 2 puff inhalation Q4H PRN 03/03/24 06/14/25 Rx aerosol inhaler shortness of breath or wheezing #8.5 grams metoprolol tartrate 25 mg tablet 25 mg PO BID #180 tabs 01/10/25 06/14/25 Rx amlodipine 5 mg-benazepril 40 mg 1 cap PO DAILY 01/14/25 06/14/25 History capsule meloxicam 7.5 mg tablet 7.5 mg PO BID #180 tabs 05/31/25 06/14/25 Rx cholecalciferol (vitamin D3) 50 50 mcg PO HS 06/02/25 06/14/25 History mcg (2,000 unit) capsule citalopram 20 mg tablet 20 mg PO HS 06/02/25 06/14/25 History doxepin 25 mg capsule 25 mg PO HS PRN sleep 06/02/25 06/14/25 History levothyroxine 150 mcg tablet 150 mcg PO HS 06/02/25 06/14/25 History rosuvastatin 40 mg tablet 40 mg PO HS 06/02/25 06/14/25 History turmeric root extract 500 mg 500 mg PO 3XW 06/02/25 06/14/25 History capsule oxybutynin chloride 5 mg tablet 5 mg PO TID #20 tabs 06/05/25 06/14/25 Rx benzonatate 100 mg capsule 100 mg PO TID PRN cough #30 caps 06/14/25 06/14/25 Rx famotidine 20 mg tablet 20 mg PO DAILY PRN acid reflux #90 06/14/25 06/14/25 Rx tabs Allergies Allergy/AdvReac Type Severity Reaction Status Date / Time Sulfa (Sulfonamide Allergy Unknown Unknown Verified 06/14/25 10:05 Antibiotics) sulfanilamide Allergy Unknown Unknown Verified 06/14/25 10:05 Exam Const: General: no acute distress Resp: Effort & Inspection: normal respiratory effort GI: Inspection: non-distended GI Palp: No abdominal tenderness and No Guarding due to palpation present (GI) Auscultation: normal bowel sounds Assessment and Plan Assessment and plan (1) Ureterolithiasis: Onset Date: ~05/2025 Code(s): N20.1 - Calculus of ureter Status: Acute Assessment and Plan: Cystoscopy with left ureteroscopy, laser lithotripsy with stone extraction, possible left retrograde pyelogram and stent placement
--- NOTE | 2025-06-22 14:47 | PC.NURSE ---
Addendum entered by Tod Fraser RN 06/22/25 15:13: Says office told her to hold Meloxicam. Original Note: [facility] has started construction of its new state of the art ER which will open Spring 2026. With this, we anticipate parking may be a challenge for some our surgical patients and families. Parking spaces are limited but are available for all Surgical, obstetrics, and ER patients sharing this lot. If you arrive and find you are having a hard time finding a parking space, please note that we understand the challenges, please drive around the hospital and park near Hospital Entrance 1. When you enter this entrance, you can ask a volunteer to direct or take you back to the surgical waiting area to check in. We appreciate everyone?s understanding of these expected challenges while we build for your future. Report to the Outpatient Waiting Room, entrance under the green pavilion located off [facility], at time _1130_ on date [phone]__. Planned Procedure Time: _130pm_.? Time changes happen often and if your time is changed the preop area will call you the afternoon before. - You and your visitor will be asked to self-screen and do not enter if you have any COVID symptoms. Please call surgeon if you need to reschedule. - A mask is optional within the hospital at this time. Patients may have clear liquids (water, carbonated beverages, clear teas, apple juice) until 3 hours prior to surgery with a maximum of 20 ounces. - No food from midnight until time of surgery and no smoking, or chewing tobacco (or any form of nicotine). No chewing gum, candy or mints. Take only the following medications with a SIP of water on the morning of surgery: ___Metoprolol____ DO NOT STOP ANY OF YOUR OTHER PRESCRIPTION MEDICATIONS PRIOR TO SURGERY EXCEPT THE FOLLOWING Hold all vitamins and supplements for 3 days per anesthesiologist. Medications to discontinue per physician Date to take last [id number] Please no make-up, nail luxembourgish, hairspray, perfume, deodorant, or body powder the day of surgery.? No jewelry (including any body piercings) or valuables the day of surgery, leave them at home.? Please take a shower or bath the night before, or the morning of, surgery with an antibacterial soap.? Wear comfortable, loose fitting clothing.? - Jewelry must be removed prior to entering the operating room.? Rings and piercings that are not removed may be cut off. - The hospital will not accept responsibility for valuables.? - Please leave all valuables, including medications, at home the day of surgery. If you are going home after surgery, a licensed mail truck driver must drive you home.? - NO public transportation without another adult if you receive anesthesia. - We recommend that an adult stay with you for 24 hours following discharge. - We also recommend that you do not drive, make important decision, drink alcoholic beverages, or take any drugs that were not prescribed by your health care provider for at least 24 hours after your discharge time. Follow any additional instructions given to you from your surgeon. Telephone instructions given to __Donna___and asked if any additional questions and then verbalized understanding. Patient advised to call surgeon office or pre surgery nurse liaison [phone] if any additional questions.
[2025-06-22 15:03] VITALS: BMI 53.0
[2025-06-30] VITALS (10 sets, daily range): BP systolic 150–197; BP diastolic 70–109; PULSE 58–87; RESP 14–22; TEMP 36.1–36.6; O2SAT 95–100; BMI 53.7
--- NOTE | ~2025-06-30 | XR_ITS ---
EXAMINATION: XR retrograde pyelo w/stent LT DATE: 06/30/2025 13:45 INDICATION: Left internal ureteral stent placement TECHNIQUE: Fluoroscopic images from a left internal ureteral stent placement are submitted for review. 29 seconds of fluoroscopy time. FINDINGS: There is a left double-J internal ureteral stent projecting in expected position, with proximal [place] loop at the level of the renal pelvis and distal loop in the pelvis within the bladder lumen. IMPRESSION: 1. Left internal ureteral stent placement. Please refer to real-time procedural findings for details. Reviewed, dictated and finalized at location O. NG CAR STEWARD IMPRESSION: 1. Left internal ureteral stent placement. Please refer to real-time procedur al findings for details.
--- NOTE | 2025-06-30 06:13 | WPDHPUPDATE1 ---
History and Physical Update Update Date/Time: 06/30/25 06:13 History and Physical has been reviewed, including an updated exam of the patient. There are NO changes in the patient's condition. Risks, benefits, and alternatives have been discussed and questions answered. Patient agrees to proceed with procedure.
[2025-06-30] MEDS: LACTATED RINGERS 1,000 ML 30 ML IV CONT ×2 (12:00→14:10)
--- NOTE | 2025-06-30 12:37 | WPDANESEPPF ---
Anes - Initial Pre Proc Eval Procedure: Operation Date: 06/30/25 13:30 Proposed Procedures p Cystoscopy, Left Ureteroscopy, Possible Left Retrograde Pyelogram, Possible Left Stone Extraction, Left Stent Removal/Replacement, Possible Holmium Laser - Tomas Villatoro MD Date/Time: 06/30/25 12:37 Surgeon: Tomas Villatoro MD Pre Op Diagnosis: left ureteral stone Patient Data Age: 75 Gender: F Height: 1.57 m Weight: 133.3 kg Last Vital Signs Temp 97.9 F 06/30/25 11:55 Pulse 58 L 06/30/25 11:55 Resp 18 06/30/25 11:55 BP 164/70 H 06/30/25 11:55 Pulse Ox 98 06/30/25 11:55 O2 Del Method Room Air 06/30/25 11:55 Allergies Allergy/AdvReac Type Severity Reaction Status Date / Time Sulfa (Sulfonamide Allergy Unknown Unknown Verified 06/22/25 14:45 Antibiotics) sulfanilamide Allergy Unknown Unknown Verified 06/22/25 14:45 Home Medications ?Medication ?Instructions ?Recorded ?Confirmed ?Type albuterol sulfate 90 mcg/actuation 2 puff inhalation Q4H PRN 03/03/24 06/22/25 Rx aerosol inhaler shortness of breath or wheezing #8.5 grams metoprolol tartrate 25 mg tablet 25 mg PO BID #180 tabs 01/10/25 06/30/25 Rx amlodipine 5 mg-benazepril 40 mg 1 cap PO DAILY 01/14/25 06/30/25 History capsule meloxicam 7.5 mg tablet 7.5 mg PO BID #180 tabs 05/31/25 06/22/25 Rx cholecalciferol (vitamin D3) 50 50 mcg PO HS 06/02/25 06/30/25 History mcg (2,000 unit) capsule citalopram 20 mg tablet 20 mg PO HS 06/02/25 06/30/25 History doxepin 25 mg capsule 25 mg PO HS PRN sleep 06/02/25 06/22/25 History levothyroxine 150 mcg tablet 150 mcg PO HS 06/02/25 06/30/25 History rosuvastatin 40 mg tablet 40 mg PO HS 06/02/25 06/30/25 History turmeric root extract 500 mg 500 mg PO 3XW 06/02/25 06/30/25 History capsule oxybutynin chloride 5 mg tablet 5 mg PO TID #20 tabs 06/05/25 06/22/25 Rx benzonatate 100 mg capsule 100 mg PO TID PRN cough #30 caps 06/14/25 06/22/25 Rx famotidine 20 mg tablet 20 mg PO DAILY PRN acid reflux #90 06/14/25 06/30/25 Rx tabs Patient hx anesthesia problems: none Family hx anesthesia problems: none Results Review: All pre-operative results and documents have been reviewed as part of the pre-operative evaluation. [facility] Past Medical History Medical History Morbid (severe) obesity due to excess calories Essential hypertension Chronic edema Acute insomnia Skin yeast infection Cellulitis Osteoarthritis of left shoulder region Left knee pain Prediabetes Depression Essential (primary) hypertension Hyperlipidemia, unspecified Hypothyroidism, unspecified Seasonal allergies Surgical History Surgical History H/O shoulder surgery (~09/2024) Hx of dilation and curettage History of myomectomy Hx of tonsillectomy Family History Family History Mother Family history of osteoarthritis Family history of heart disease in male family member before age 55 Patient's mother is Family history of coronary artery disease Family history of congestive heart failure Hypertension Thyroid disorder Amputation below knee Father Depression Thyroid disorder Cerebrovascular accident, Onset Age: 50 Sibling Family history of malignant neoplasm of kidney Family history of renal cell carcinoma Depression Patient's brother is Hypertension Lung cancer Sibling On total parenteral nutrition (TPN) Status post partial removal of lung Social History Social History Smoking status: Never smoker Tobacco type: cigarettes Smoking end date: 08/25/91 Alcohol intake: current Drinks per week: 1 Substance use: never Substance use type: does not use Do You Feel Safe in your Home?: Yes Lack of Transportation: No Lack of Food: Never True Current Housing: I Have Housing Concerned About Future Housing: No Difficulty Paying Gas/Electric Bills: No Difficulty Paying for Meds: No Currently Unemployed: No Education: Master's Degree or Higher Difficulty w/ Childcare or Family Care: No Living arrangements: with family Occupation/Education: retired Gender identity (if verbalized by the patient): Female Spiritual care concerns: No Agree to blood products: Yes Anes - Eval Final PreProcedure Day of Procedure 06/30/25 12:37 Patient weight: super morbidly obese Heart: irregular rhythm Lungs: decreased breath sounds Airway: Mallampati scale class II Neurological: alert and oriented Last oral intake: >/= 8 hours ASA classification: IV Emergent: no Anesthetic plan: proceed Anesthesia type and monitoring: general GIVS Results Review: All pre-operative results and documents have been reviewed as part of the pre-operative evaluation. Informed Consent: The patient's anesthetic plan and its attendant risks and benefits were discussed with the patient/family/POA. Questions were solicited and answers provided to the satisfaction of the patient/family/POA.
[2025-06-30] MEDS: ceFAZolin 3 GM/D5W 100 ML 100 ML IVPB (12:51)
--- NOTE | 2025-06-30 13:37 | S_PTH ---
PATIENT: Ayleen Pham LOC: [facility] U#:[id number] AGE/SX: 75/F ROOM: RE06/30/[address]: Tomas Villatoro MD : 1950 BED: DIS: 06/30/2025 SPEC #: [id number] RECD: 06/30/25 14:24 STATUS: YANCY REQ #: [id number] CATHERINE: 06/30/25 13:[address]: Tomas Villatoro DEPT: [facility] [place] Surgical RECD BY: Katrin Aguirre ENTERED: 06/30/25 14:25 SP TYPE: Surgical OTHR DR: Jaida Perdomo, TABLET MAKING MACHINE OPERATOR Tissues: A - Stone Procedures: Gross Exam Level 1 Crystalline Analysis
[2025-06-30] MEDS: fentaNYL CITRATE INJ (*CRX) 100 MCG/2 ML VIAL 25 MCG IV PUSH ×8 (14:09→14:50)
--- NOTE | 2025-06-30 14:10 | P.OP_ITS ---
Procedure Note - Detailed Date of Procedure 06/30/25 Pre-op Diagnosis left ureteral stone Post-op Diagnosis Same Procedure Performed Cystoscopy, left ureteral stent removal, left ureteroscopy with laser lithotripsy and stone extraction, left retrograde pyelogram and left ureteral stent placement Surgeon Tomas Villatoro MD Anesthesia General Description of Procedure The patient is brought the operative suite where she has prepped draped in routine sterile fashion while in dorsal lithotomy position after the uneventful induction of a general LMA anesthetic. Cystoscopy was undertaken with a 19 F rigid cystoscope. The tip of the indwelling stent is grasped and it was brought to the external urethral meatus. 0.035 in glidewire was advanced in the left renal pelvis and the distal ureter was dilated with an 8 F 10 F dilator. A safety wire was placed followed by a 11 F/13 F ureteral access sheath. Ure teroscopy was undertaken with a 7.5 F flexible digital ureteral scope. Her 1.3 cm solitary stone is washed into a upper pole calyx. Using a 200 micron Jonathan laser fiber on dusting mode the stone was ablated into very small pieces all of which appear to be 2 mm or less. Several small pieces were extracted with a 1.9 F disposable stone basket. The scope was removed retrograde pyelogram was used to ensure appropriate placement of a 4.8 F variable length stent with proximal coil in the renal pelvis and distal coil in the bladder. Scopes and wires removed and she was taken to the recovery room in good condition Drains Yes Packing No Pathology Yes
[2025-06-30] MEDS: ONDANSETRON INJ 4 MG/2 ML VIAL IV PUSH (15:18)
[2025-06-30] MEDS: KETOROLAC 15 MG/ML VIAL (*BKC) IV PUSH (15:30)
--- OUTSIDE RECORDS SUMMARY | 2025-06-30 15:59 | XMS_ITS | Encounter Summary ---
Author Organization [facility] Address [address] [place] [id number] Care Team Providers Care Ecology Teacher Name Role Phone Unavailable Primary Care Provider Unavailabl e Encounter Details Date Type Department Care Team (Late st Contact Info) Description 08/27/2005 Abstract [facility] Conversion Md, Generic Conversion, Social [...]
--- OUTSIDE RECORDS SUMMARY | 2025-06-30 15:59 | XMS_ITS | Data Portability ---
Author Organization [facility] Joana [place] Address [address] [facility] [place] [address] Assessment No assessment recorded. Plan of Treatment Reminders Order Date Submit Date Provider Last Modified By Organization Details Last Modified Time Details Appointments None recorded. Lab fecal occult blood, stool 2015 016 mpass In-Office Order, Internal Use Only DO Not Attach Compendium DO Not Attach Compendium, Do Not Delete/merge, [id number] 6 16:41:53 TSH, serum or plasma 2015 016 sorr9 [facility], [address] [facility], [address], [place], [address], 6 10:46:29 cholesterol LDL/HDL, ratio 2015 016 aaustill [facility], [address] [facility], [address], [place], [address], 6 09:19:43 CMP, serum or plasma 2015 016 aaustill [facility], [address] [facility], [facility] [address], [place], [address], 6 10:13:36 CBC 2015 016 aaustill [facility], [address], [place], [address], 6 10:13:36 TSH, serum or plasma 2015 016 [facility], [address] , [place], [address], 6 10:03:27 CBC 2014 015 [facility], [address] [facility] [address], [place], [address], 5 10:04:15 CMP, serum or plasma 2014 015 [facility], [address] [facility] [address], [place], [address], 5 10:04:15 TSH, serum or plasma 2014 015 [facility], [address] [place] [address], [address], [place], [address], 5 10:04:15 cholesterol LDL/HDL, ratio 2014 015 [facility], [address] [facility], [address], [place], [address], 5 09:02:51 Referral None recorded. Procedures None recorded. Surgeries None recorded. Imaging MAMMO, screening, bilateral [address] (Mammography) , [address], [place], [address], 6 10:46:17 bone density [address], [address], [place], [address], 6 10:46:00 Medication Orders Imitrex 100 mg tablet 2015 016 [facility] [address], [address], [place], [address], 6 08:55:20 meloxicam 7.5 mg tablet 2015 016 ltardino [facility] [address], [address] [place], [address], 6 10:03:27 levothyroxi ne 150 mcg tablet 2015 016 ardino [facility] [address], [address] [place], [address], 6 08:53:39 Patient TargetsNo targets recorded. Patient Instructions Encounter Date Encounter Id Patient Instructions Last Modified By Organization Details Last Modified Time 04/24/2015 [id number] learning about high blood pressure ltardino Not available 04/24/2015 14:03:53 Increase exercis e. Limit salt intake. Avoid alcohol. ltardino Not available 04/24/2015 14:03:53 11/13/2015 [id number] knee pain or injury: care instructions ltardino Not available 11/13/2015 10:03:27 learning about high blood pressure ltardino Not available 11/13/2015 10:03:27 Increase exercis e. Limit salt intake. Avoid alcohol. ltardino Not available 11/13/2015 10:03:28 12/20/2015 [id number] Patient notified of RX for Imitrex. Patient advised on dosage / instructions of medication. Patient notified to make an appointment with Gage Judge if no improvement to headache or if elevated blood pressure continues. Not available 12/20/2015 10:47:34 Gage Camejo given status report including VS. New order for Imitrex obtained. Not available 12/20/2015 10:47:34 05/13/2016 [id number] influenza (flu) vaccine: care instructions Not available 05/13/2016 15:21:46 knee pain or injury: care instructions Not available 05/13/2016 15:17:13 learning about high blood pressure Not available 05/13/2016 15:17:13 high cholesterol : care instructions Not available 05/13/2016 15:17:13 Patient complain s of occasional, light breakthrough bleeding noticed in underwear, approximately 3 times since January. Patient is post-menopausal for approx. 15 years. Patient states she made an appointment with a EMB[employer]DED SYSTEMS DEVELOPER but was unable to find building and has not rescheduled appointment. EMBED[employer]ED SYSTEMS DEVELOPER appointment made for patient and importance of keeping appointment stressed to patient.Increase exercise. Limit salt intake. Avoid alcohol. ltardino Not available 05/13/2016 13:52:16 05/27/2016 [id number] mammogram: about this test [facility] Not available 05/27/2016 16:41:53 [address] for mammogram and bone density. Schedule colonoscopy through PCP. [facility] Not available 05/27/2016 11:11:10 Reason for Referral None Reported. Results Created Date Observation Date Name Description Value Unit Range Abnormal Flag Note LastModifiedBy Organization Detail LastModifiedTime 05/27/20 16 05/27/2016 fecal occul t blood , stool Occult Blood negati ve Not Available In-Office Order Internal Use Only DO Not Attach Compendium DO Not Attach Compendium, Do Not Delete/merge, [id number] 05/27/2016 10:59:18 11/02/19 16 11/03/2015 lipid panel , serum cholesterol, total 141 mg/dL 125-20 0 normal Not Available [facility] [email or web address]] [facility] [address] [place], [address], 11/03/2015 06:39:25 11/02/19 16 11/03/2015 lipid panel , serum HDL cholesterol 35 mg/dL > or = 46 low Not Available [facility] [address] [place], [address], 11/03/2015 06:39:25 11/02/19 16 11/03/2015 lipid panel , serum triglyceride s 85 mg/dL <150 normal Not Available [facility] [address] [place], [address], 11/03/2015 06:39:25 11/02/19 16 11/03/2015 lipid panel , serum LDL-choleste rol 89 mg/dL _(beatriz c) <130 normal Aspen able range <100 mg/dL for patie nts with CHD or diabe ariane and <70 mg/dL for diabe tic patie nts with known heart disea se. Not Available [facility] [address] [place], [address], 11/03/2015 06:39:25 11/02/19 16 11/03/2015 lipid panel , serum chol/HDLC ratio 4.0 (calc ) < or = 5.0 normal Not Available [address], [address], 11/03/2015 06:39:25 11/02/19 16 11/03/2015 lipid panel , serum non HDL cholesterol 106 mg/dL _(beatriz c) normal Targe t for non-H DL jameel stero l is 30 mg/dL highe r than LDL jameel stero l targe t. Not Available [address], [address], 11/03/2015 06:39:25 11/02/19 16 11/03/2015 CMP, serum or plasm a glucose 109 mg/dL 65-99 high Fasti ng refer ence inter trish Not Available [facility] [address], [address], 11/03/2015 06:39:26 11/02/19 16 11/03/2015 CMP, serum or plasm a urea nitrogen (BUN) 29 mg/dL 7-25 high Not Available [address], [address], 11/03/2015 06:39:26 11/02/19 16 11/03/2015 CMP, serum or plasm a creatinine 0.97 mg/dL 0.50-0 .99 normal For patie nts >49 years of age, the refer ence limit for Creat inine is appro ximat geraldo 13% highe r for peopl e ident ified as Afric an-Am kamala n. Not Available [address], [address], 11/03/2015 06:39:26 11/02/19 16 11/03/2015 CMP, serum or plasm a eGFR non-afr. burmese 61 mL/mi n/1.7 3m2 > or = 60 normal Not Available [address], [address], 11/03/2015 06:39:26 11/02/19 16 11/03/2015 CMP, serum or plasm a eGFR 71 mL/mi n/1.7 3m2 > or = 60 normal Not Available [address], [address], 11/03/2015 06:39:26 11/02/19 16 11/03/2015 CMP, serum or plasm a BUN/creatini ne ratio 30 (calc ) 6-22 high Not Available [address], [address], 11/03/2015 06:39:26 11/02/19 16 11/03/2015 CMP, serum or plasm a sodium 141 mmol/ L 135-14 6 normal Not Available [address], [address], 11/03/2015 06:39:26 11/02/19 16 11/03/2015 CMP, serum or plasm a potassium 4.0 mmol/ L 3.5-5. 3 normal Not Available [address], [address], 11/03/2015 06:39:26 11/02/19 16 11/03/2015 CMP, serum or plasm a chloride 101 mmol/ L 98-110 normal Not Available [address], [address], 11/03/2015 06:39:26 11/02/19 16 11/03/2015 CMP, serum or plasm a carbon dioxide 29 mmol/ L 19-30 normal Not Available [address], [address], 11/03/2015 06:39:26 11/02/19 16 11/03/2015 CMP, serum or plasm a calcium 9.2 mg/dL 8.6-10 .4 normal Not Available [address] [address] [place], [address], 11/03/2015 06:39:26 11/02/19 16 11/03/2015 CMP, serum or plasm a protein, total 6.8 g/dL 6.1-8. 1 normal Not Available [address], [address], 11/03/2015 06:39:26 11/02/19 16 11/03/2015 CMP, serum or plasm a albumin 4.1 g/dL 3.6-5. 1 normal Not Available [address], [address], 11/03/2015 06:39:26 11/02/19 16 11/03/2015 CMP, serum or plasm a globulin 2.7 g/dL_ (calc ) 1.9-3. 7 normal Not Available [address], [address], 11/03/2015 06:39:26 11/02/19 16 11/03/2015 CMP, serum or plasm a albumin/glob ulin ratio 1.5 (calc ) 1.0-2. 5 normal Not Available [address], [address], 11/03/2015 06:39:26 11/02/19 16 11/03/2015 CMP, serum or plasm a bilirubin, total 0.6 mg/dL 0.2-1. 2 normal Not Available [address], [address], 11/03/2015 06:39:26 11/02/1911/03/2015 CMP, serum or plasm a alkaline phosphatase 75 U/L 33-130 normal Not Available [facility] [address] [address] [place], [address], 11/03/2015 06:39:26 11/02/19 16 11/03/2015 CMP, serum or plasm a AST 14 U/L 10-35 normal Not Available [address], [address], 11/03/2015 06:39:26 11/02/19 16 11/03/2015 CMP, serum or plasm a ALT 14 U/L 6-29 normal Not Available [address], [address], 11/03/2015 06:39:26 11/02/19 16 11/03/2015 CBC w/ auto diff white blood cell count 8.6 thous and/u L 3.8-10 .8 normal Not Available [address], [address], 11/03/2015 06:39:27 11/02/19 16 11/03/2015 CBC w/ auto diff red blood cell count 4.36 river on/uL 3.80-5 .10 normal Not Available [address], [address], 11/03/2015 06:39:27 11/02/19 16 11/03/2015 CBC w/ auto diff hemoglobin 12.6 g/dL 11.7-1 5.5 normal Not Available [address], [address], 11/03/2015 06:39:27 11/02/19 16 11/03/2015 CBC w/ auto diff hematocrit 38.6 % 35.0-4 5.0 normal Not Available [address], [address], 11/03/2015 06:39:27 11/02/19 16 11/03/2015 CBC w/ auto diff MCV 88.5 fL 80.0-1 00.0 normal Not Available [address], [address], 11/03/2015 06:39:27 11/02/19 16 11/03/2015 CBC w/ auto diff MCH 29.0 pg 27.0-3 3.0 normal Not Available [address], [address], 11/03/2015 06:39:27 11/02/19 16 11/03/2015 CBC w/ auto diff MCHC 32.8 g/dL 32.0-3 6.0 normal Not Available [address], [address], 11/03/2015 06:39:27 11/02/19 16 11/03/2015 CBC w/ auto diff RDW 13.1 % 11.0-1 5.0 normal Not Available [address], [address], 11/03/2015 06:39:27 11/02/19 16 11/03/2015 CBC w/ auto diff platelet count 214 thous and/u L 140-40 0 normal Not Available [address], [address], 11/03/2015 06:39:27 11/02/19 16 11/03/2015 CBC w/ auto diff MPV 8.9 fL 7.5-11 .5 normal Not Available [address], [address], 11/03/2015 06:39:27 11/02/19 16 11/03/2015 CBC w/ auto diff absolute neutrophils 6235 cells /uL 1500-7 800 normal Not Available [address], [address], 11/03/2015 06:39:27 11/02/19 16 11/03/2015 CBC w/ auto diff absolute lymphocytes 1522 cells /uL 850-39 00 normal Not Available [address], [address], 11/03/2015 06:39:27 11/02/19 16 11/03/2015 CBC w/ auto diff absolute monocytes 636 cells /uL 200-95 0 normal Not Available [address] [place], [address], 11/03/2015 06:39:27 11/02/19 16 11/03/2015 CBC w/ auto diff absolute eosinophils 189 cells /uL 15-500 normal Not Available [address] [place], [address], 11/03/2015 06:39:27 11/02/19 16 11/03/2015 CBC w/ auto diff absolute basophils 17 cells /uL 0-200 normal Not Available [address] [place], [address], 11/03/2015 06:39:27 11/02/19 16 11/03/2015 CBC w/ auto diff neutrophils 72.5 % normal Not Available [address], [address], 11/03/2015 06:39:27 11/02/19 16 11/03/2015 CBC w/ auto diff lymphocytes 17.7 % normal Not Available [address], [address], 11/03/2015 06:39:27 11/02/19 16 11/03/2015 CBC w/ auto diff monocytes 7.4 % normal Not Available [address], [address], 11/03/2015 06:39:27 11/02/19 16 11/03/2015 CBC w/ auto diff eosinophils 2.2 % normal Not Available [address] [place], [address], 11/03/2015 06:39:27 11/02/19 16 11/03/2015 CBC w/ auto diff basophils 0.2 % normal Not Available [address] [place], [address], 11/03/2015 06:39:27 11/02/19 16 11/03/2015 TSH, serum or plasm a TSH 0.13 mIU/L 0.40-4 .50 low Not Available [address], [address], 11/03/2015 06:39:28 01/11/20 16 01/12/2016 TSH, serum or plasm a TSH 1.50 mIU/L 0.40-4 .50 normal Not Available [address], [address], 01/12/2016 06:37:44 06/21/20 16 06/22/2016 LDL, direc t, serum direct LDL 110 mg/dL <130 normal Aspen able range <100 mg/dL for patie nts with CHD or diabe ariane and <70 mg/dL for diabe tic patie nts with known heart disea se. Not Available [address], [address], 06/22/2016 02:56:14 06/21/20 16 06/22/2016 CMP, serum or plasm a glucose 106 mg/dL 65-99 high Fasti ng refer ence inter trish Not Available [address], [address], 06/22/2016 02:48:09 06/21/20 16 06/22/2016 CMP, serum or plasm a urea nitrogen (BUN) 25 mg/dL 7-25 normal Not Available [address], [address], 06/22/2016 02:48:09 06/21/20 16 06/22/2016 CMP, serum or plasm a creatinine 0.92 mg/dL 0.50-0 .99 normal For patie nts >49 years of age, the refer ence limit for Creat inine is appro ximat geraldo 13% highe r for peopl e ident ified as Afric an-Am kamala n. Not Available [address] [place], [address], 06/22/2016 02:48:09 06/21/20 16 06/22/2016 CMP, serum or plasm a eGFR non-afr. burmese 64 mL/mi n/1.7 3m2 > or = 60 normal Not Available [address], [address], 06/22/2016 02:48:09 06/21/20 16 06/22/2016 CMP, serum or plasm a eGFR 75 mL/mi n/1.7 3m2 > or = 60 normal Not Available [address], [address], 06/22/2016 02:48:09 06/21/20 16 06/22/2016 CMP, serum or plasm a BUN/creatini ne ratio NOT APPLIC ABLE (calc ) 6-22 Not Available [address], [address], 06/22/2016 02:48:09 06/21/20 16 06/22/2016 CMP, serum or plasm a sodium 141 mmol/ L 135-14 6 normal Not Available [address], [address], 06/22/2016 02:48:09 06/21/20 16 06/22/2016 CMP, serum or plasm a potassium 4.7 mmol/ L 3.5-5. 3 normal Not Available [address], [address], 06/22/2016 02:48:09 06/21/20 16 06/22/2016 CMP, serum or plasm a chloride 102 mmol/ L 98-110 normal Not Available [address], [address], 06/22/2016 02:48:09 06/21/20 16 06/22/2016 CMP, serum or plasm a carbon dioxide 29 mmol/ L 20-31 normal Not Available [address], [address], 06/22/2016 02:48:09 06/21/20 16 06/22/2016 CMP, serum or plasm a calcium 9.8 mg/dL 8.6-10 .4 normal Not Available [address], [address], 06/22/2016 02:48:09 06/21/20 16 06/22/2016 CMP, serum or plasm a protein, total 7.3 g/dL 6.1-8. 1 normal Not Available [address], [address], 06/22/2016 02:48:09 06/21/20 16 06/22/2016 CMP, serum or plasm a albumin 4.3 g/dL 3.6-5. 1 normal Not Available [address], [address], 06/22/2016 02:48:09 06/21/20 16 06/22/2016 CMP, serum or plasm a globulin 3.0 g/dL_ (calc ) 1.9-3. 7 normal Not Available [address], [address], 06/22/2016 02:48:09 06/21/20 16 06/22/2016 CMP, serum or plasm a albumin/glob ulin ratio 1.4 (calc ) 1.0-2. 5 normal Not Available [address], [address], 06/22/2016 02:48:09 06/21/20 16 06/22/2016 CMP, serum or plasm a bilirubin, total 0.5 mg/dL 0.2-1. 2 normal Not Available [address], [address], 06/22/2016 02:48:09 06/21/20 16 06/22/2016 CMP, serum or plasm a alkaline phosphatase 83 U/L 33-130 normal Not Available [facility] [address], [address], 06/22/2016 02:48:09 06/21/20 16 06/22/2016 CMP, serum or plasm a AST 17 U/L 10-35 normal Not Available [address], [address], 06/22/2016 02:48:09 06/21/20 16 06/22/2016 CMP, serum or plasm a ALT 22 U/L 6-29 normal Not Available [address], [address], 06/22/2016 02:48:09 06/21/20 16 06/22/2016 CBC w/ auto diff white blood cell count 8.4 thous and/u L 3.8-10 .8 normal Not Available [address], [address], 06/22/2016 05:08:10 06/21/20 16 06/22/2016 CBC w/ auto diff red blood cell count 4.56 river on/uL 3.80-5 .10 normal Not Available [address], [address], 06/22/2016 05:08:10 06/21/20 16 06/22/2016 CBC w/ auto diff hemoglobin 13.8 g/dL 11.7-1 5.5 normal Not Available [address], [address], 06/22/2016 05:08:10 06/21/20 16 06/22/2016 CBC w/ auto diff hematocrit 41.4 % 35.0-4 5.0 normal Not Available [address], [address], 06/22/2016 05:08:10 06/21/20 16 06/22/2016 CBC w/ auto diff MCV 90.8 fL 80.0-1 00.0 normal Not Available [address], [address], 06/22/2016 05:08:10 06/21/20 16 06/22/2016 CBC w/ auto diff MCH 30.3 pg 27.0-3 3.0 normal Not Available [address], [address], 06/22/2016 05:08:10 06/21/20 16 06/22/2016 CBC w/ auto diff MCHC 33.4 g/dL 32.0-3 6.0 normal Not Available [address], [address], 06/22/2016 05:08:10 06/21/20 16 06/22/2016 CBC w/ auto diff RDW 13.6 % 11.0-1 5.0 normal Not Available [address], [address], 06/22/2016 05:08:10 06/21/20 16 06/22/2016 CBC w/ auto diff platelet count 205 thous and/u L 140-40 0 normal Not Available [address], [address], 06/22/2016 05:08:10 06/21/20 16 06/22/2016 CBC w/ auto diff MPV 8.8 fL 7.5-11 .5 normal Not Available [address], [address], 06/22/2016 05:08:10 06/21/20 16 06/22/2016 CBC w/ auto diff absolute neutrophils 5880 cells /uL 1500-7 800 normal Not Available [address], [address], 06/22/2016 05:08:10 06/21/20 16 06/22/2016 CBC w/ auto diff absolute lymphocytes 1730 cells /uL 850-39 00 normal Not Available [address], [address], 06/22/2016 05:08:10 06/21/20 16 06/22/2016 CBC w/ auto diff absolute monocytes 479 cells /uL 200-95 0 normal Not Available [address], [address], 06/22/2016 05:08:10 06/21/20 16 06/22/2016 CBC w/ auto diff absolute eosinophils 269 cells /uL 15-500 normal Not Available [address], [address], 06/22/2016 05:08:10 06/21/20 16 06/22/2016 CBC w/ auto diff absolute basophils 42 cells /uL 0-200 normal Not Available [address], [address], 06/22/2016 05:08:10 06/21/20 16 06/22/2016 CBC w/ auto diff neutrophils 70.0 % normal Not Available [address], [address], 06/22/2016 05:08:10 06/21/20 16 06/22/2016 CBC w/ auto diff lymphocytes 20.6 % normal Not Available [address], [address], 06/22/2016 05:08:10 06/21/20 16 06/22/2016 CBC w/ auto diff monocytes 5.7 % normal Not Available [address], [address], 06/22/2016 05:08:10 06/21/20 16 06/22/2016 CBC w/ auto diff eosinophils 3.2 % normal Not Available [address], [address], 06/22/2016 05:08:10 06/21/20 16 06/22/2016 CBC w/ auto diff basophils 0.5 % normal Not Available [address], [address], 06/22/2016 05:08:10 06/21/20 16 06/22/2016 TSH, serum or plasm a TSH 2.02 mIU/L 0.40-4 .50 normal Not Available [address], [address], 06/22/2016 03:09:39 06/28/20 16 06/28/2016 dexa PT NAME: CHERIE LAW : 1949 PT SEX/AG E: PT ACCT NUMBER : [id number] PT MR#: [id number] ROOM/B ED: PT STATUS : REG CLI DATE OF EXAMIN ATION: ORDERI PHYSIC WINSTON: DANNY Mahan PASS * RHIANNA-B Dora ATTEND ING PHYSIC WINSTON: DANNY MOCTEZUMA-B C PASS * DICTAT ING PHYSIC WINSTON: EWDAR SOTO M.D. 025 EXAMIN ATION: DIGITA L MAMM SCREEN -DARLING HISTOR Y: Screen ing mammog martha TECHNI QUE: Full field digita l cranio caudal and mediol ateral obliqu e views of both breast s were obtain ed. CAD analys is was submit lakia and interp reted. COMPAR LAURA: 5 BREAST PARENC HYMAL COMPOS ITION: The breast s are almost entire ly fatty. FINDIN GS: There is stable focal asymme try in the upper- outer quadra nt of the left breast . There is no eviden ce of suspic ious mass, calcif icatio n, or masood ectura l distor tion to sugges t malign mckenzie. There has been no suspic ious interv al change . IMPRES MIRIAM: 1. No mammog raphic eviden ce of malign mckenzie. Recomm end routin e screen ing mammog gary in one year. BI-RAD S Catego ry 2: Benign findin g(s) __ [facility] ed[facility] dictat ed[facility] __ Electr onical ly signed by: Dr. EDWAR Gordillo Date: Time: 15:50 EDWAR SOTO M.D.__ ___ [facility] [address] [place] [address] [facility] (Imaging) [address], [place], [address], 07/01/2016 12:34:09 07/02/20 16 06/28/2016 dexa PT NAME: CHERIE LAW : 1949 PT SEX/AG E: PT ACCT NUMBER : [id number] PT MR#: [id number] ROOM/B ED: PT STATUS : REG CLI DATE OF EXAMIN ATION: ORDERI NG PHYSIC WINSTON: DANNY Mahan PASS * WHNP-B C ATTEND ING PHYSIC WINSTON: DANNY Mahan WHNP-B C PASS * DICTAT ING PHYSIC WINSTON: EDWAR SOTO M.D. 026 ====== ====== ====== ====== ====== ====== ====== ====== ====== ====== ===== Bone Densit y Report ====== ====== ====== ====== ====== ====== ====== ====== ====== ====== ===== Name: CHERIE LAW t ID: [id number] Age: 66 Sex: Female Ethnic ity: White Date of : 1949 ------ ------ ------ ------ ------ ------ ------ ------ ------ ------ ----- Indica tion: rola hendrickson; Ref[facility] er: FELICIA CRAIN * DANNY Mahan Study: Bone densit ometry was formerly [facility] med. Exam Date: 2015 Access ion number : [id number] Bone Densit y: ------ ------ ------ ------ ------ ------ ------ ------ ------ ------ ----- Region BMD T-scor e Z-scor e Classi ficati on ------ ------ ------ ------ ------ ------ ------ ------ ------ ------ ----- AP Spine (L1-L4 ) 1.289 2.2 4.1 Normal Femora l Neck (Left) 0.692 -1.4 0.2 Osteop enia Total Hip (Left) 1.017 0.6 2.0 Normal Total Hip Bilate ral Avg 1.047 0.9 2.2 Normal Femora l Neck (Right ) 0.836 -0.1 1.5 Normal Total Hip (Right ) 1.076 1.1 2.4 Normal ------ ------ ------ ------ ------ ------ ------ ------ ------ ------ ----- World Health Organi zation criter ia for BMD impres miriam classi fy patien ts as: Normal (T-sco re at or above -1.0), Osteop enia (T-sco re betwee n -1.0 and -2.5), or Osteop orosis (T-sco re at or below -2.5). 10-gala r Fractu re Risk(1 ): ------ ------ ------ ------ ------ ------ ------ ------ ------ ------ ----- Major Osteop orotic Fractu re 7.6% Hip Fractu re 0.8% ------ ------ ------ ------ ------ ------ ------ ------ ------ ------ ----- Report ed Risk Factor s: [place] (Sujey lee), Neck BMD=0. 692, BMI=47 .3 Input outsid e FRAX(R ) limits . Adjust ed to:Iván ght=12 5 kg (1) FRAX(R ) Boby mahan 3.08. Fractu re probab ility calcul ated for an untrea lakia hayes. Fractu re probab ility may be lower if the melissa hayes has receiv ed treatm ent. Clinic al Inform ation Provid ed by Melissa hayes: ------ ------ ------ ------ ------ ------ ------ ------ ------ ------ ----- Has used the follow ing medica tions: Trish Odom Melissa castrou m height was 64 [place] use Age: 51 No regula r weight bearin g exerci se Onset of menses at age 12 Number of childr en 2 ------ ------ ------ ------ ------ ------ ------ ------ ------ ------ ----- Impres miriam: The melissa hayes has low bone mass, based on the Left Femora l Neck T-scor e. The melissa hayes has an estima lakia ten-ye ar risk of hip fractu re of 0.8% and an estima lakia ten-ye ar risk of major fractu re of 7.6%, based on the WHO FRAX algori thm. Discus miriam: BONE DENSIT Y IS LOW AT ONE OR MORE SKELET AL SITES. This patien t's lowest T-scor e is low at one or more skelet al sites. It meets the World Health Organi zation 's (WHO) criter ia for low bone mass (T-sco re betwee n -1.0 and -2.5). The patien t's 10-yea r risk of fractu re as calcul ated by FRAX is less than the thresh old where pharma cologi beatriz therap y is recomm ended by the Nation al Osteop orosis Founda tion (NOF). Howeve r, all treatm ent decisi ons requir e clinic al judgme nt and consid eratio n of indivi dual patien t factor s, includ ing patien t prefer ences, comorb iditie s, previo us drug use, risk factor s not captur ed in the FRAX model (e.g., frailt y, falls, vitami n D defici ency, increa sed bone turnov er, interv al signif icant declin e in bone densit y) and possib le under or overes timati on of fractu re risk by FRAX. The patien t should follow a health ful lifest yle (good nutrit ion with adequa te calciu m and vitami n D, and approp riate weight -beari ng exerci se). Follow -Up: Consid er repeat ing this study in 2 to 3 years to reasse ss this patien t's status , or sooner if there is some new clinic al indica tion. Review ed, dictat ed [facility] EDWAR SOTO M.D.__ ___ < > [facility] [address] [place] [address] [facility] (Imaging) [address], [place], [address], 07/05/2016 10:45:36 07/05/20 16 06/28/2016 MAMMO , scree catracho, bilat eral No observ ation record ed. [facility] (Mammography) [address], [place], [address], 07/06/2016 14:25:11 07/09/20 16 06/28/2016 bone densi ty No observ ation record ed. [facility] [address], [place], [address], 09/03/2016 09:16:00 Result Notes None recorded. Problems Name Problem SNOMED Code Status Onset Date Resolution Date Notes Provider Name and Address Organization Details Recorded Time Essential hypertension 33486790 Active Brunilda Whitney null, [place] - [facility] 6 10:39:25 Hyperlipidemia 44788688 Active Brunilda Whitney null, [place] - [facility] 6 10:39:25 Mammography abnormal 945674465 Active Brunilda Whitney null, [place] - [facility] 6 10:39:25 Knee pain Active Brunilda Whitney null, [place] - [facility] 6 10:39:25 Migraine 69577691 Active Brunilda Whitney null, [place] - [facility] 6 10:39:25 Dysuria 26291448 Active Brunilda Whitney null, [place] - [facility] 6 10:39:25 Problem Notes None recorded. Procedures Surgical History Date Name Laterality Status Provider Name and Address Organization Details Recorded Time 0 Tonsillectomy completed Leandra West [place] - [facility] 10/24/2014 09:09:25 Imaging Results None recorded. Procedure Notes None recorded. Medical Equipment None Reported. Allergies Allergen ID Allergen Name Allergen Category Reaction Reaction Severity Criticality Documentation Date Start Date Code Code System Note Provider Name and Address Organization Details Recorded Time 89267 Substance with sulfonami de structure and antibacte rial mechanism of action (substanc e) medicatio n other Not available Not available 10/24/2014 70351 0567 SNOMED BRITNEY Combs, [place] - [facility] 5 09:09:25 Medications Name Sig Start Date Stop Date Status Note LastModified by Organization Details LastModified Time losartan 50 mg tablet TAKE ONE TABLET BY MOUTH ONCE DAILY 2015 active Not Available Not Available Not Avai lable levothyroxine 175 mcg tablet TAKE ONE TABLET BY MOUTH ONCE DAILY active Not Available Not Available No t Available levothyroxine 137 mcg tablet Take 1 tablet every day by oral route. 2015 active Not Available Not Available Not Avai lable pravastatin 40 mg tablet TAKE ONE TABLET BY MOUTH AT BEDTIME 2015 active Not Available Not Available Not Avai lable sumatriptan 100 mg tablet Take 1 tablet by mouth with onset of headache as directed active Not Available Not Available No t Available meloxicam 7.5 mg tablet TAKE ONE TABLET BY MOUTH TWICE DAILY 2015 active Not Available Not Available Not Avai lable citalopram 20 mg tablet TAKE ONE TABLET BY MOUTH ONCE DAILY active Not Available Not Available No t Available levothyroxine 150 mcg tablet TAKE ONE TABLET BY MOUTH ONCE DAILY 2015 active Not Available Not Available Not Avai lable diclofenac potassium 50 mg tablet take 1 tablet by mouth twice a day 2013 active Not Available Not Available Not Avai lable hydrochlorothi azide 25 mg tablet TAKE ONE TABLET BY MOUTH ONCE DAILY 2015 active Not Available Not Available Not Avai lable diclofenac sodium 50 mg tablet,delayed release TAKE ONE TABLET BY MOUTH TWICE DAILY active Not Available Not Available No t Available Benicar 40 mg tablet Take 1 tablet by mouth daily 2014 active Not Available Not Available Not Avai lable metoprolol tartrate 25 mg tablet TAKE ONE TABLET BY MOUTH TWICE DAILY 2016 active Not Available Not Available Not Avai lable nitrofurantoin monohydrate/ma crocrystals 100 mg capsule Take 1 capsule every 12 hours by oral route. active Not Available Not Available No t Available Vitals Date Recorded Body height Body mass index (BMI) Body weight Body temperature Heart rate Respiratory rate Systolic And Diastolic Provider Name and Address Organization Details Last Updated DateTime 6 162.56 cm 48.1 kg/m2 373549. 8636 g 98.1 [degF] 72 /min 16 /min 148/80 mm[Hg] Leandra West [place] - [facility] 6 08:58:45 Date Recorded Respiratory rate Body temperature Heart rate Systolic And Diastolic Provider Name and Address Organization Details Last Updated DateTime 12/20/2015 20 /min 98.8 [degF] 68 /min 142/88 mm[Hg] Bettina Metz RN [facility] 6 10:29:18 Date Recorded Respiratory rate Body weight Body height Body mass index (BMI) Heart rate Body temperature Systolic And Diastolic Provider Name and Address Organization Details Last Updated DateTime 5 16 /min 503926. 07759 g 165.1 cm 47.6 kg/m2 60 /min 96.7 [degF] 138/70 mm[Hg] Leandra West MA [facility] 5 09:39:27 Date Recorded Body mass index (BMI) Heart rate Respiratory rate Body height Body weight Body temperature Systolic And Diastolic Provider Name and Address Organization Details Last Updated DateTime 6 49.1 kg/m2 64 /min 16 /min 162.56 cm 672170. 75042 g 98.5 [degF] 130/76 mm[Hg] Leandra West MA [facility] 6 08:49:16 Date Recorded Body weight Body height Body mass index (BMI) Systolic And Diastolic Provider Name and Address Organization Details Last Updated DateTime 05/27/2016 741410.82 545 g 162.56 cm 48.9 kg/m2 136/82 mm[Hg] Brunilda Devonte [facility] 05/27/2016 10:39:25 Social History Question Answer Notes LastModified by GetApp Details LastModified Time Tobacco Smoking Status Former Smoker Leandra West MA null, [facility] 10/24/2014 09:09:25 Marital Status Informatio n not available 04/24/2015 Sex: Unknown Functional Status Question Answer Note LastModified by GetApp Details LastModified Time What is your level of alcohol consumption? Occasional Information not available 04/24/2015 Mental Status None recorded. Family History Relationship Description Onset Age of this Age Resolved Age Notes LastModified by Organization Details LastModified Time Mother Hypertensive disorder [email or web address] Not available 2015 10:39:25 Sister Hypertensive disorder [email or web address] Not available 2015 10:39:25 Medical History Condition Response High Blood Pressure Y High Cholesterol Y Thyroid Problems Y Gynecological History Statement/Question Response Age at First Child 26 Sexually Active? N Obstetrics History GPAL:G 3 P 2 0 1 0 Type Value Full Term 2 Induced 1 Total 3 Immunizations Vaccine Type Date Status Note Provider Nam e and Address Organization Details Recorded Time Influenza, split virus, quadrivalent, preservative 6 completed Not Available [facility] 09/11/2019 02:47:56 Past Encounters Encounter ID Performer Location Encounter Start Date Encounter Closed Date Diagnosis/Indication Diagnosis SNOMED-CT Code Diagnosis ICD10 Code Diagnosis IMO Codes Diagnosis Note [id number] YUSEF Azul [facility] [address] [place] [address]33-[address] 1 10/24/2014 08:51:44 10/24/2014 10:08:11 Essential hypertension 33901865 Hyperlipidemia 52219714 History of depression 895153831 Screening for malignant neoplasm of breast 783340881 [id number] [facility] [address] [place] [address] 1 04/24/2015 09:15:58 04/24/2015 14:23:06 Essential hypertension 51900591 Hyperlipidemia 85993420 History of hypothyroidism 136220147 Adult heal th examination 752957846 [id number] [facility] [address] [place] [address] 37993-060 1 11/13/2015 08:45:45 11/13/2015 13:06:00 Essential hypertension 96250048 I10 Hyperlipidemia 00741523 E78.5 History of depression 16 2701847 Z86.59 History of hypothyroidism 465285932 Z86.39 Knee pain 87506109 M25.5 62 [id number] YUSEF Azul [facility] [address] [place] [address] 57269-630 1 12/20/2015 10:21:07 12/22/2015 09:48:08 Migraine 75718109 G43.909 [id number] [facility] [address] [place] [address] 71909-[address] 1 05/13/2016 08:38:11 05/13/2016 14:53:53 Hyperlipidemia 75951100 E78.5 Essential hypertension 33642839 I10 Knee pain 67188441 M25.5 61 Adult heal th examination 291917712 Z00.00 History of hypothyroidism 212447379 Z86.39 Administra tion of influenza vaccine 02355162 Z23 [id number] Rebecca Johnson [facility] (GEN [address]) 2 [facility] [address] [place] [address] 05/27/2016 10:25:46 05/27/2016 11:22:22 Gynecologic examination 97562108 Z01.419 Screening mammography 24 431109 Z12.31 Postmenopausal state 764 66645 Z78.0 Health Concerns Section Related Observation LastModified by Organization Detai ls LastModified Time None Recorded Concern Status LastModified by Organization Details LastModified Time None Recorded Advance Directives Directive None Recorded Payers Insurance Date Sequence Insurance Name Policy Number Policy Barnes Covered Member ID Barnes Member ID Guarantor Name 05/25/2016 2 [facility] Cherie Law [id number] Cherie Fitch 05/13/2016 [place] [facility] Cherie Fitch [id number] Cherie Fitch 05/25/2016 1 [place] Cherie Fitch [id number] Cherie Fitch 05/27/2016 [place] [facility] Cherie Fitch [id number] Cherie Fitch Notes Date Note Type Note Provider Name and Address Organization Details Recorded Time 5 text/html Hypertension F/UReported by PatientHPIFor associated symptoms, patient reportsno dizziness,no lightheadedness,no chest pain,no shortness of breath,no palpitations,no edema, andno calf pain with exertion. For lifestyle, patient reportsregular exerciseandlimiting/avoid ing salt. For medications, patient reportstaking medications as directedandno side effects from medication. DEANNE Barrow - [facility] 04/24/2015 14:04:09 6 text/html Hypertension F/UReported by PatientHPIFor associated symptoms, patient reportsno dizziness,no lightheadedness,no chest pain,no shortness of breath,no palpitations,no edema, andno calf pain with exertion. For lifestyle, patient reportsregular exerciseandlimiting/avoid ing salt. For medications, patient reportstaking medications as directedandno side effects from medication. Gage carolina, MA - [facility] 11/13/2015 10:03:46 6 text/html Hypertension F/UReported by PatientHPIFor lifestyle, patient reportsnot exercising regularlybut reportslimiting/avoiding salt. For associated symptoms, patient reportsno dizziness,no lightheadedness,no chest pain,no shortness of breath,no palpitations,no edema, andno calf pain with exertion. For medications, patient reportstaking medications as directedandno side effects from medication. Gage carolina, [facility] 05/13/2016 15:18:11 6 text/html Annual [employer] Post-MenopausalReported by PatientGenitourinary symptomsFor menopausal symptoms, patient reportsno menopausal symptomsandnormal vaginal lubrication. For vaginal bleeding, patient reportshistory of menopause having occurredandno history of post menopausal bleeding. For urinary symptoms, patient reportsno hematuria,no incontinence,no nocturia, andno urinary frequency. For vulva, patient reportsno genital lesionandno vulvar atrophy. For vagina, patient reportsnormal vaginal dischargeandno vaginal atrophy.Breast symptomsFor breast, patient reportsno breast lump,no nipple discharge, andno breast pain.Psychological symptomsFor sexual complaints, patient reportsno sexual complaints. For psychological symptoms, patient reportsno depressionandno anxiety.Preventative measuresFor preventive measures, patient reportsencourage regular mammograms starting age 40,encourage self breast examination,encourage regular exercise,encourage no tobacco use,needs to schedule mammogram,needs to schedule colonoscopy, andneeds to schedule bone density. RHIANNA Shaw- Attn: Accounting,[address] [facility] [facility], [place], [address], [facility] - [facility] 05/27/2016 11:11:21 OBGyn Episode No OBEpisode recorded.
--- OUTSIDE RECORDS SUMMARY | 2025-06-30 15:59 | XMS_ITS | Clinical Summary ---
Author Organization [facility] [address] Address [address] [place] [address] Care Team Providers Care Business Economist Name Role Phone Deyanira Olivarez MD Unavailable [phone] Jaida Perdomo NP Primary Care Provider [phone] Allergies Active Allergy Reactions Criticality Noted Date [...] [facility] at [address] [place] [address] Jameel Johansen MD Mixed hyperlipidemia (Primary Dx); Essential hypertension; Morbid obesity with BMI of 50.0-59.9, adult (HCC); [place] (obstructive sleep apnea); Hypothyroidism, unspecified type from Last 3 Months Surgical History Surgery [...] Kidney dis ease Brother 2 (Age 45) ND/sudden cardiac Father (Age 5 0) Mother Sister [...] on file Legal Sex Female 1:52 PM 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 Gender Identity Not on file Sexual Orientation Not on file Last Filed Vital Signs Vital Sign Reading Time Taken Comments Blood Pressure 130/82 04/28/2025 11:56 AM CDT Pulse 59 04/28/2025 11:56 AM CDT Temperature 36.6 C (97.8 F) 09/29/2024 8:35 AM 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 Respiratory Rate 16 11/23/2024 9:58 AM CDT [...] PCV) 06/07/2020 06/07/2019 Covid-19 Vaccine (4 - 2024-2 6 season) 2025 09/24/2021, 03/23/2021, 02/23/2021 Influenza Vaccine (#1) 2025 2, 06/14/2021, 06/19/2020, Additional history exists Fall Risk Assessment 09/29/2025 09/29/2024 Breast Cancer Screening-Mammogram Discontinued 07/05/2016, 06/28/2016, 02/03/2015 Medical Devices Implanted Type Area Grocery Bagger Device Identifier Shelf Expiration Date Model / Serial / Lot Exactech Reverse Torque Define Shoulder Kit Screw 320-20-00 - [id number] - [id number] Implanted:Qty: 1 on 09/28/2024 by Emir Sebastian MD at [facility] Left: Shoulder Exactech [id number] 07/28/2029 320-20-00 / [id number] / Exactech Equinoxe Lock Reverse Shoulder Glenosphere Screw Bone 320-15-05 - [id number] - [id number] Implanted:Qty: 1 on 09/28/2024 by Emir Sebastian MD at [facility] Left: Shoulder Exactech [id number] 06/22/2029 320-15-05 / [id number] / Exactech Equinoxe Small Reverse Superior Posterior Augment Shoulder Left 320-35-07 - [id number] - [id number] Implanted:Qty: 1 on 09/28/2024 by Emir Sebastian MD at [facility] Left: Shoulder Exactech [id number] 12/21/2033 320-35-07 / [id number] / Exactech Component 36mm Glenoid Glenosphere Reverse Shoulder 320-31-36 - [id number] - [id number] Implanted:Qty: 1 on 09/28/2024 by Emir Sebastian MD at [facility] Left: Shoulder Exactech [id number] 07/29/2034 320-31-36 / [id number] / Exactech Equinoxe 4.5mm 30mm Kit Compression Lock Cap Reverse Shoulder 320-20-30 - [id number] - [id number] Implanted:Qty: 1 on 09/28/2024 by Emir Sebastian MD at [facility] Left: Shoulder Exactech [id number] 06/09/2029 320-20-30 / [id number] / Exactech Equinoxe 4.5mm 30mm Kit Compression Lock Cap Reverse Shoulder 320-20-30 - [id number] - [id number] Implanted:Qty: 1 on 09/28/2024 by Emir Sebastian MD at [facility] Left: Shoulder Exactech [id number] 01/22/2027 320-20-30 / [id number] / Exactech Equinoxe Od10 Mm L70 Mm Preserve Short Stem Humeral Sterile 300-30-10 - [id number] - [id number] Implanted:Qty: 1 on 09/28/2024 by Emir Sebastian MD at [facility] Left: Shoulder Exactech [id number] 03/18/2034 300-30-10 / [id number] / Exactech Tray Humeral Adapter 0 322-10-00 - [id number] - [id number] Implanted:Qty: 1 on 09/28/2024 by Emir Sebastian MD at [facility] Left: Shoulder Exactech 08/03/2034 322-10-00 / [id number] / Exactech Liner Humeral 36mm Equinoxe Reverse Shoulder Poly 322-36-00 - [id number] - [id number] Implanted:Qty: 1 on 09/28/2024 by Emir Sebastian MD at [facility] Left: Shoulder Exactech 06/23/2029 322-36-00 / [id number] / Procedures Procedure Name Priority Date/Time Associated [...] Result from Last 3 Months Insurance MEDICARE A[employer]NA SENIOR SUPPLEMENT MEDICARE AETNA SENIOR SUPPLEMENT Advance Directives For more information, please contact: [phone] * Full Code (Latest Code Status on File) Date Activated Date Inactivated Comments 09/28/2024 2:29 PM 09/29/2024 8:55 PM Care Teams Business Economist Relationship Specialty Start Date End Date Jaida Perdomo NP [address] [place] [address] PCP - General Family Medicine 07/21/24 Deyanira Olivarez MD Consulting Physician Cardiology 07/24/23
--- OUTSIDE RECORDS SUMMARY | 2025-06-30 15:59 | XMS_ITS | Clinical Summary ---
Author Organization [facility] Address [address] [place] [address] Care Team Providers Care Pea Viner Mechanic Name Role Phone Unavailable Primary Care Provider [...] Comments Blood Pressure 159/84 09/12/2008 8:35 AM ERGONOMICS CONSULTANT Pulse 96 09/12/2008 8:35 AM ERGONOMICS CONSULTANT Temperature - - Respiratory Rate - - Oxygen Saturation - - Inhaled Oxygen Concentration - - Weight 118.4 kg (261 lb) 09/12/2008 8:35 AM ERGONOMICS CONSULTANT Height 165.1 cm (5' 5) 09/12/2008 8:35 AM ERGONOMICS CONSULTANT Body Mass Index 43.43 09/12/2008 8:35 AM ERGONOMICS CONSULTANT Plan of Treatment Health Maintenance Due Date Last Done Comments Hepatitis C 1968 DTaP, Tdap and Td Vaccines ( 1 - Tdap) 1968 Pneumococcal Vaccine: 50+ Ye ars (1 of 1 - PCV) 1999 Zoster Vaccines (1 of 2) 1999 Dexa Scan (General) 2014 RSV Immunization or 60+ Years (1 - 1-dose 75+ series) 2024 COVID-19 Vaccine ( - 2024-2 6 season) 2025 Influenza Adult (#1) 2025 Hepatitis A Vaccines Aged Out No long er eligible based on patient's age to complete this topic Meningococcal B Vaccine Aged Out No l onger eligible based on patient's age to complete this topic Meningococcal Vaccine Aged Out No tomas kena eligible based on patient's age to complete this topic RSV Immunizations Under 20 Months Aged Out No longer eligible based on patient's age to complete this topic
--- OUTSIDE RECORDS SUMMARY | 2025-06-30 15:59 | XMS_ITS | Encounter Summary ---
Author Organization [facility] Address [address] [place] [address] Care Team Providers Care Transfer Station Attendant Name Role Phone Unavailable Primary Care Provider Unavailabl e Encounter Details Date Type Department Care Team (Late st Contact Info) Description 05/04/2003 Abstract [facility] Clinics Conversion Md, Generic Conversion, Social History [...]
[2025-06-30] MEDS: TAMSULOSIN HCL 0.4 MG CAPSULE PO (16:02)
[2025-06-30] MEDS: PHENAZOPYRIDINE HCL 100 MG TABLET PO (16:02)
== END 2025-06-30 16:04 | disposition home or self-care (01) ==
PROVIDERS: PCP Nurse Practitioner Family; Visit Provider Urology
PROC: (CPT 52352; principal; 2025-06-30 13:30)
DX: N20.1 Calculus of ureter (principal)
CPT/HCPCS: 52356; 74420; 82365; 88300; A9270; C1769; C1894; C2617; J0360; J0690; J1100; J1885; J2003; J2405; J2704; J3010; J7120; Q9966